=== PATIENT | female | born 1940 | race Caucasian/White ===

== ENCOUNTER 2016-10-07 06:03 | Day surgery (SDC) | payer OTHER ==
[~2016-10-07] VITALS: Ht 157.5 cm; Wt 61.0 kg
[2016-10-07 06:47] VITALS: BP 170/95; PULSE 84; RESP 20; TEMP 97.6; O2SAT 98
[2016-10-07] MEDS ORDERED: ATOR40TA16 PO (06:52)
[2016-10-07] MEDS ORDERED: CROM4SOL2 EACH EYE (06:52)
[2016-10-07] MEDS ORDERED: ALPR0.25 PO (06:52)
[2016-10-07] MEDS ORDERED: VITA100052 PO (06:52)
[2016-10-07] MEDS ORDERED: VERA240T16 PO (06:52)
[2016-10-07] MEDS ORDERED: TRAN1TAB PO (06:52)
[2016-10-07] MEDS ORDERED: VANCOMYCIN 1000 MG/NS 250 ML - implanted port/tunneled catheter IV SCH ×2 (07:15)
[2016-10-07] MEDS ORDERED: ceFAZolin 2 GM PREMIX 50 ML - implanted port/tunneled catheter insertion IV SCH (07:15)
[2016-10-07] MEDS ORDERED: SODIUM CHLORIDE 0.9% 1000 ML IV SCH (07:15)
[2016-10-07] MEDS ORDERED: POVIDONE IODINE 5% (ANTISEPSIS KIT) 4 APPLICATIONS EACH NARE SCH (07:15)
[2016-10-07] MEDS ORDERED: CHLORHEXIDINE GLUCONATE 2 % 1 PACK (2 CLOTHS) TOPICAL SCH (07:15)
[2016-10-07] MEDS ORDERED: fentaNYL CITRATE 250 MCG/5 ML AMP ONE (08:03)
[2016-10-07] MEDS ORDERED: MIDAZOLAM HCL 5 MG/5 ML VIAL ONE (08:03)
[2016-10-07] MEDS ORDERED: LIDOCAINE 1%/EPINEPHrine 1:100,000 SOLN 20 ML VIAL ONE (08:23)
[2016-10-07 09:20] VITALS: BP 156/82; PULSE 95; RESP 20; TEMP 97.3; O2SAT 95
--- NOTE | 2016-10-07 09:21 | PD.RAD ---
Post Procedure Progress Note Pre Procedure Diagnosis: (1) Pancreatic cancer Post Procedure Diagnosis: (1) Pancreatic cancer Procedure Date: Oct 07, 2016 Supervising Radiologist: Lj Miller Proceduralist/Assist: Viridiana Jean-Baptiste, RT(R)(), Es Quiroga RT(R)() Anesthesia: Local, Conscious Sedation Plan of Activity Patient to Unit: ROPU Patient Condition: Good See PACS Report for procedural detail/treatment Central Venous Access Device Procedure 1 Right Internal Jugular Infusaport Placement single lumen [place]: 8 Lj Miller MD Oct 07, 2016 09:20
[2016-10-07] MEDS ORDERED: ONDANSETRON HCL 4 MG/2 ML VIAL ONE (09:27)
[2016-10-07 09:35] VITALS: BP 145/83; PULSE 77; RESP 20; O2SAT 94
[2016-10-07] MEDS ORDERED: ONDANSETRON HCL 4 MG/2 ML VIAL IV PUSH ONE (09:45)
[2016-10-07 10:05] VITALS: BP 126/69; PULSE 65; RESP 20; O2SAT 94
[2016-10-07 10:30] VITALS: BP_SYST 111; BP_SYST 126; BP_DIAS 66; BP_DIAS 69; PULSE 63; PULSE 65; RESP 20; O2SAT 94
--- NOTE | 2016-10-07 12:49 | RADRPT ---
EXAM DATE/TIME: 10/07/2016 08:07 [facility] COMPARISON: No previous studies available for comparison. 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 MEDICAL HISTORY : Anemia Arthritis Cataracts Colitis HTN Osteopenia Metastatic pancreatic head adenocarcinoma in 2016 SURGICAL HISTORY : ERCP with biliary stent placement EUS guided liver biopsy Cholecystectomy Colonoscopy Tonsillectomy ENCOUNTER: Initial ACUITY: 1 month PAIN SCORE: 0/10 FLUORO TIME: 0.2 minutes SEDATION TIME: 30 minutes ACCESS: Right internal jugular vein SEDATION: 1.) 3 mg midazolam (Versed) IV 2.) 250 mcg fentanyl (Sublimaze) IV Prophylactic antibiotics were administered with appropriate pre-procedure timing. Vancomycin within 2 hours of procedure, Ancef (or alternative) within 1 hour of procedure. DEVICE: 1. 8 [place] single lumen Bard Power Port PROCEDURE : 1. Continuous pulse oximetry and EKG monitoring. 2. Intravenous conscious sedation. 3. Ultrasound guidance for venous access. 4. Fluoroscopic guided implantable central venous port placement. The patient was placed supine. The neck was prepped in sterile fashion. Full sterile technique was u sed, including cap, mask, sterile gloves and gown, and a large sterile sheet. Hand hygiene and 2% ch lorhexidine Betadine was utilized per protocol for cutaneous antisepsis with appropriate dry time for site. The skin and subcutaneous tissues were infiltrated with local anesthetic solution. Under direct ultrasound guidance, central venous access was accomplished in the targeted vessel. The ultrasound images depicting access guidance were stored and saved to PACS for permanent record. A s ubcutaneous pocket was created using blunt dissection. The port was introduced to the pocket. The c atheter tubing was fed through a subcutaneous tunnel to the venotomy site. The catheter tubing was c ut to a suitable length and then was introduced through a valved Peel-Away sheath and positioned with catheter tubing tip at the cavo-atrial junction level. The pocket incision was closed with subcutic ular Vicryl suture. Steri-Strips were applied. The port was flushed and locked with heparin solutio n per protocol. Sterile dressing was applied to the site. The patient tolerated the procedure well. Conscious sedation was performed with the prescribed dosages and duration as above. The patient kendall ated the procedure well and there were no complications. EKG and oximetry remained stable throughout the procedure. The patient was sent to post anesthesia recovery in stable condition. CONCLUSION: Uncomplicated ultrasound and fluoroscopic guided implanted central venous port catheter placement as described in detail above. An 8 [place] Power port was placed. Lj Miller MD on October 07, 2016 at 12:47 Board Certified Radiologist. This report was verified electronically.
[2016-10-08] MEDS ORDERED: HYDR-3533 PO (12:30)
== END 2016-10-07 12:20 | disposition home or self-care (01) ==
LOC: HROP 06:03 → HRIP 06:04 → HROP 12:20
PROVIDERS: ATTEND Internal Medicine Hematology & Oncology
DX: C25.9 Malignant neoplasm of pancreas, unspecified (principal); C78.7 Secondary malignant neoplasm of liver and intrahepatic bile duct; M85.80 Other specified disorders of bone density and structure, unspecified site; I10 Essential (primary) hypertension; D64.9 Anemia, unspecified
CPT/HCPCS: 36561; 76937; 77001; 99152; 99153; J0690; J1642; J2250; J2405; J3010; J3370; J7030; J7050; C1788

== ENCOUNTER 2016-10-08 08:47 | Emergency (ER) | payer OTHER ==
[~2016-10-08] VITALS: Ht 157.5 cm; Wt 61.5 kg
[~2016-10-08 08:47] MED LIST: ALPR0.25 PO; ATOR40TA16 PO; CROM4SOL2 EACH EYE; TRAN1TAB PO; VERA240T16 PO; VITA100052 PO
[2016-10-08 08:48] VITALS: BP 190/82; PULSE 87; RESP 16; TEMP 97.3; O2SAT 96
[2016-10-08] MEDS ORDERED: SODIUM CHLORIDE 0.9% FLUSH 5 ML FLUSH IVF PRN (09:15)
[2016-10-08] MEDS ORDERED: MORPHINE SULFATE 4 MG/ML INJ IV PUSH ONE ×2 (09:15→12:30)
[2016-10-08] MEDS ORDERED: ONDANSETRON HCL 4 MG/2 ML VIAL IVP ONE (09:15)
[2016-10-08] MEDS ORDERED: SODIUM CHLOR 0.9% 1000 ML INJ 1,000 ML IV SCH (09:15)
--- NOTE | 2016-10-08 09:15 | PD ---
HPI Chief Complaint: Abdominal Pain Time Seen by Provider: 09:14 Travel History International Travel<30 days: No Contact w/Intl Traveler<30days: No Traveled to known affect area: No History of Present Illness HPI 76-year-old female came to the emergency room with history of right upper quadrant abdominal pain. Patient has history of pancreatic cancer and has a stent placed in the pancreatic duct 2 months ago. She is going through chemotherapy currently. Yesterday she had a MediPort put in. The pain has been there for 2 days now. No history of fever or chills. She has been nauseous but no history of vomiting. Patient was hypertensive upon arrival but also appears quite uncomfortable due to the pain. [facility] Past Medical History Narrative Medical List of her past medical history reviewed from the nursing note. Cancer: Yes (PANCREATIC) Cardiovascular Problems: No Chemotherapy: Yes (STARTS FRIDAY) Diabetes: No Endocrine: No Genitourinary: No Hepatitis: No Hiatal Hernia: No Immune Disorder: No Musculoskeletal: Yes (RIGHT HAND ARTHRITIS) Neurologic: No Psychiatric: No Reproductive: No Respiratory: No Immunizations Current: No Thyroid Disease: No ?: Not Past Surgical History Abdominal Surgery: Yes (CHOLECYSTECTOMY) AICD: No Cardiac Surgery: No Ear Surgery: No Endocrine Surgery: No Eye Surgery: Yes (CATARACTS BILATERAL 2013) Genitourinary Surgery: No Gynecologic Surgery: No Joint Replacement: No Oral Surgery: No Pacemaker: No Thoracic Surgery: No Social History Tobacco Use: No Substance Use: No Allergies-Medications (Allergen,Severity, Reaction): Coded Allergies: No Known Allergies (Unverified , 10/08/16) Comments No known drug allergies. Reported Meds & Prescriptions Reported Meds & Active Scripts Active Lortab (Hydrocodone-Acetaminophen) 5-325 Mg Tab 1 Tab PO Q6H PRN Reported Cromolyn Opth Drops 4% Soln 1 Drop EACH EYE Q6H Vitamin D High Potency (Cholecalciferol) 1,000 Unit Cap 1,000 Units PO DAILY Alprazolam 0.25 Mg Tab 0.25 Mg PO Q6H PRN Atorvastatin (Atorvastatin Calcium) 40 Mg Tab 40 Mg PO HS Trandolapril 1 Mg Tab 1 Tab PO DAILY Verapamil SR (Verapamil HCl) 240 Mg Tab 240 Mg PO DAILY Narrative Medication List of her home medications reviewed from the nursing note. Review of Systems Except as stated in HPI: all other systems reviewed are Neg Physical Exam Narrative GENERAL: Awake, alert, anxious, moderate distress SKIN: Warm and dry. HEAD: Atraumatic. Normocephalic. EYES: Pupils equal and round. No scleral icterus. No injection or drainage. ENT: No nasal bleeding or discharge. Mucous membranes pink and moist. NECK: Trachea midline. No JVD. CARDIOVASCULAR: Regular rate and rhythm. No murmur appreciated. RESPIRATORY: No accessory muscle use. Clear to auscultation. Breath sounds equal bilaterally. GASTROINTESTINAL: Abdomen soft, tender in the epigastric right upper quadrant region, nondistended. Hepatic and splenic margins not palpable. MUSCULOSKELETAL: No obvious deformities. No clubbing. No cyanosis. No edema. NEUROLOGICAL: Awake and alert. No obvious cranial nerve deficits. Motor grossly within normal limits. Normal speech. PSYCHIATRIC: Appropriate mood and affect; insight and judgment normal. Data Data Last Documented VS Vital Signs Date Time Temp Pulse Resp B/P Pulse Ox O2 Delivery O2 Flow Rate FiO2 10/08/16 13:08 68 18 165/76 98 Room Air 10/08/16 08:48 97.3 Orders Complete Blood Count With Diff (10/08/16 09:15) Comprehensive Metabolic Panel (10/08/16 09:15) Lipase (10/08/16 09:15) Prothrombin Time / Inr (Pt) (10/08/16 09:15) Act Partial Throm Time (Ptt) (10/08/16 09:15) Urinalysis - C+S If Indicated (10/08/16 09:15) Ct Abd/Pel W Iv Contrast(Rout) (10/08/16 09:15) Iv Access Insert/Monitor (10/08/16 09:15) Ecg Monitoring (10/08/16 09:15) Oximetry (10/08/16 09:15) Morphine Inj (Morphine Inj) (10/08/16 09:15) Ondansetron Inj (Zofran Inj) (10/08/16 09:15) Sodium Chlor 0.9% 1000 Ml Inj (Ns 1000 M (10/08/16 09:15) Sodium Chloride 0.9% Flush (Ns Flush) (10/08/16 09:15) Direct Bilirubin (10/08/16 09:15) Iohexol 350 Inj (Omnipaque 350 Inj) (10/08/16 10:22) Morphine Inj (Morphine Inj) (10/08/16 12:30) Labs Laboratory Tests Test 10/08/16 10/08/16 09:20 11:00 White Blood Count 6.7 TH/MM3 Red Blood Count 4.27 MIL/MM3 Hemoglobin 13.0 GM/DL Hematocrit 37.5 % Mean Corpuscular Volume 88.0 FL Mean Corpuscular Hemoglobin 30.4 PG Mean Corpuscular Hemoglobin 34.5 % Concent Red Cell Distribution Width 14.7 % Platelet Count 382 TH/MM3 Mean Platelet Volume 7.7 FL Neutrophils (%) (Auto) 76.8 % Lymphocytes (%) (Auto) 16.3 % Monocytes (%) (Auto) 5.1 % Eosinophils (%) (Auto) 1.4 % Basophils (%) (Auto) 0.4 % Neutrophils # (Auto) 5.1 TH/MM3 Lymphocytes # (Auto) 1.1 TH/MM3 Monocytes # (Auto) 0.3 TH/MM3 Eosinophils # (Auto) 0.1 TH/MM3 Basophils # (Auto) 0.0 TH/MM3 CBC Comment DIFF FINAL Differential Comment Prothrombin Time 10.2 SEC Prothromb Time International 0.9 RATIO Ratio Activated Partial 24.3 SEC Thromboplast Time Sodium Level 139 MEQ/L Potassium Level 3.8 MEQ/L Chloride Level 103 MEQ/L Carbon Dioxide Level 27.7 MEQ/L Anion Gap 8 MEQ/L Blood Urea Nitrogen 6 MG/DL Creatinine 0.58 MG/DL Estimat Glomerular Filtration 102 ML/MIN Rate Random Glucose 114 MG/DL Calcium Level 8.8 MG/DL Total Bilirubin 0.8 MG/DL Direct Bilirubin 0.2 MG/DL Aspartate Amino Transf 18 U/L (AST/SGOT) Alanine Aminotransferase 16 U/L (ALT/SGPT) Alkaline Phosphatase 160 U/L Total Protein 7.9 GM/DL Albumin 3.4 GM/DL Lipase 206 U/L Urine Color STRAW Urine Turbidity CLEAR Urine pH 7.5 Urine Specific [place] 1.009 Urine Protein NEG mg/dL Urine Glucose (UA) NEG mg/dL Urine Ketones NEG mg/dL Urine Occult Blood NEG Urine Nitrite NEG Urine Bilirubin NEG Urine Urobilinogen LESS THAN 2.0 MG/DL Urine Leukocyte Esterase NEG Urine RBC LESS THAN 1 /hpf Urine WBC LESS THAN 1 /hpf Microscopic Urinalysis Comment CULT NOT INDICATED MDM Medical Decision Making Medical Screen Exam Complete: Yes Emergency Medical Condition: Yes Medical Record Reviewed: Yes Differential Diagnosis Worsening of pancreatic cancer, ductal obstruction, acute cholecystitis, acute pancreatitis Narrative Course 10:24 AM blood test results of back and within normal limit. Awaiting for the CAT scan to be done and resulted. Patient has been given IV fluid bolus and pain medication. 11:18 AM CAT scan shows multiple metastases in the liver. I put a call out for patient's oncologist and GI specialist. Awaiting to hear back from them. 12:27 PM I have not heard back yet from either of her physicians Dr. Spangler or Dr. Guan. Looking at her reports I do not see any reason for hospitalization or surgery today. I discussed this with the patient and her and they' re comfortable going home. They said they will stop by a Dr. Spangler's office on the way home. I'll discharge her home on prescription for pain medication. I've given her another dose of morphine before discharge. 12:[address] Spangler called back and after listening to the entire case, sgreed with the plan for DC home. He said his nurse will call the patient to give an appointment with him as an outpatient for tomorrow. This has been conveyed to the patient and her . They are very happy with that plan. Procedures EKG Prior to Arrival: No Physician Communication Physician Communication Dr. Spangler Diagnosis Primary Impression: Pancreatic cancer Qualified Code: C25.9 - Malignant neoplasm of pancreas, unspecified location of malignancy Additional Impressions: Liver metastases Abdominal pain Qualified Code: R10.11 - Right upper quadrant abdominal pain Referrals: Primary Care Physician Additional Instructions: Please follow-up with your primary care as well as the oncologist soon. Return to the ER if the condition worsens or any other new concerns. Otherwise take the medication as per the prescription direction. Med/Other Pt SpecificInfo: Prescription(s) given Scripts Hydrocodone-Acetaminophen (Lortab)5-325 Mg Tab1 Tab PO Q6H PRN (PAIN) #20 TAB Ref 0 Prov:Anahi Gudino MD 10/08/16 Disposition: 01 DISCHARGE HOME Condition: Stable Anahi Gudino MD Oct 08, 2016 09:14
[2016-10-08 09:21] VITALS: BP 165/91; PULSE 71; RESP 18; O2SAT 96
[2016-10-08 09:31] LABS: AUTOMATED NEUTROPHIL # 5.1 TH/MM3 (1.8-7.7); BASOPHIL % 0.4 % (0.0-2.0); EOSINOPHIL # 0.1 TH/MM3 (0-0.4); EOSINOPHIL % 1.4 % (0.0-4.0); HEMATOCRIT 37.5 % (35.0-46.0); HEMO FLAGS DIFF FINAL; LYMPH % 16.3 % (9.0-44.0); LYMPHOCYTE # 1.1 TH/MM3 (1.0-4.8); MEAN CORPUSCULAR HEMOGLOBIN 30.4 PG (27.0-34.0); MEAN CORPUSCULAR HGB CONC 34.5 % (32.0-36.0); MONO % 5.1 % (0.0-8.0); NEUT % 76.8 % (16.0-70.0); PLATELET COUNT 382 TH/MM3 (150-450); RED BLOOD COUNT 4.27 MIL/MM3 (4.00-5.30); RED CELL DISTRIBUTION WIDTH 14.7 % (11.6-17.2); WHITE BLOOD COUNT 6.7 TH/MM3 (4.0-11.0)
[2016-10-08 09:45] LABS: ANION GAP 8 MEQ/L (5-15); AST (GOT) 18 U/L (15-37); BICARBONATE 27.7 MEQ/L (21.0-32.0); BLOOD UREA NITROGEN 6 MG/DL (7-18); CHLORIDE 103 MEQ/L (98-107); GLOMERULAR FILTRATION RATE 102 ML/MIN (>89); POTASSIUM 3.8 MEQ/L (3.5-5.1); SODIUM (NA) 139 MEQ/L (136-145)
[2016-10-08 09:48] LABS: ALKALINE PHOSPHATASE 160 U/L (45-117); ALT (GPT) 16 U/L (10-53); APTT (PATIENT) 24.3 SEC (24.3-30.1); INTERNATIONAL NORMALIZED RATIO 0.9 RATIO; PROTHROMBIN TIME - PATIENT 10.2 SEC (9.8-11.6); TOTAL BILIRUBIN ADULT 0.8 MG/DL (0.2-1.0)
[2016-10-08 10:00] VITALS: BP 173/75; PULSE 74; RESP 20; O2SAT 97
[2016-10-08] MEDS ORDERED: IOHEXOL 350 MG/ML 10 ML VIAL (for RAD DIAG) IV ONE (10:22)
--- NOTE | 2016-10-08 10:58 | RADRPT ---
EXAM DATE/TIME: 10/08/2016 10:15 [facility] COMPARISON: No previous studies available for comparison. INDICATIONS: Right upper quadrant pain. IV CONTRAST: 92 cc Omnipaque 350 (iohexol) IV ORAL CONTRAST: No oral contrast ingested. RADIATION DOSE: 7.3 CTDIvol (mGy) MEDICAL HISTORY: Hypertension. Carcinoma, pancreas. SURGICAL HISTORY: None. ENCOUNTER: Initial ACUITY: 2 days PAIN SCALE: 5/10 LOCATION: Right upper quadrant TECHNIQUE: Volumetric scanning of the abdomen and pelvis was performed. Using automated exposure control and ad justment of the mA and/or kV according to patient size, radiation dose was kept as low as reasonably achievable to obtain optimal diagnostic quality images. FINDINGS: There are multiple masses scattered throughout the liver parenchyma consistent with metastatic diseas e until proven otherwise. The largest mass is located within the right lobe inferiorly and measures 2.6 cm. Pneumobilia is noted. A metallic stent is noted within the distal common bile duct. The pancreas is unremarkabl e. The adrenal glands are normal bilaterally. The spleen is normal. The kidneys enhance briskly and demons trate no evidence of focal mass or hydronephrosis. The abdominal aorta is calcified but is not aneurysmally d ilated. The inferior vena cava is normal. Uncomplicated sigmoid diverticulosis is noted. There is no acute dive rticulitis. The uterus is normal. The urinary bladder is unremarkable. No ascites is noted. Degenerative changes a re noted throughout the lumbar and lower thoracic spine. Scattered fibrotic scarring is noted within the visu alized lung bases. CONCLUSION: 1.. Innumerable liver masses suggestive of metastatic disease until proven otherwise. 2. Uncomplicated sigmoid diverticulosis. 3. Pneumobilia with metallic stent identified within the distal common bile duct. 4. Fibrotic scarring within the lung bases. 5. Degenerative changes throughout the thoracolumbar spine. Cosme Engel MD on October 08, 2016 at 10:36 Board Certified Radiologist. This report was verified electronically.
[2016-10-08 11:26] LABS: BLOOD, URINE NEG (NEG); GLUCOSE,URINE NEG (NEG); KETONE, URINE NEG (NEG); NITRITE,URINE NEG (NEG); PH, URINE 7.5 (5.0-8.5)
[2016-10-08 11:27] LABS: URINE COLOR STRAW (YELLW/STRAW)
[2016-10-08 11:28] LABS: COMMENT (UR) CULT NOT INDICATED; CULTURE IF INDICATED CULT NOT INDICATED
[2016-10-08 11:56] VITALS: BP 170/74; PULSE 80; RESP 18; O2SAT 95
[2016-10-08] MEDS ORDERED: HYDR-3533 PO (12:30)
[2016-10-08 13:08] VITALS: BP 165/76; PULSE 68; RESP 18; O2SAT 98
== END 2016-10-08 14:01 | disposition home or self-care (01) ==
LOC: NEPC 08:47
DX: C25.9 Malignant neoplasm of pancreas, unspecified (principal); C78.7 Secondary malignant neoplasm of liver and intrahepatic bile duct
CPT/HCPCS: 74177; 80053; 81001; 82248; 83690; 85025; 85610; 85730; 96374; 96375; 96376; 99284; J2270; J2405; J7030; Q9967

== ENCOUNTER 2017-11-02 19:49 | Inpatient (IN) | payer OTHER, MEDICARE ==
[2017-11-02] VITALS (7 sets, daily range): BP systolic 118–148; BP diastolic 56–92; PULSE 103–160; RESP 16–20; TEMP 100.4; O2SAT 96–99
[~2017-11-02] VITALS: Ht 157.5 cm; Wt 63.1 kg
[~2017-11-02 19:49] MED LIST changes: +HYDR-3533 PO; +VERA1TAB18 PO; -VERA240T16 PO
[2017-11-02] MEDS ORDERED: SODIUM CHLORIDE 0.9% FLUSH 10 ML FLUSH IVF PRN (20:15)
[2017-11-02] MEDS ORDERED: DILTIAZEM HCL 25 MG/5 ML VIAL IV PUSH ONE (20:15)
[2017-11-02] MEDS ORDERED: DILTIAZEM INJ 125 MG in SODIUM CHLORIDE 0.9% INJ 100 ML IV PRN (20:15)
[2017-11-02] MEDS ORDERED: SODIUM CHLOR 0.9% 1000 ML INJ 1,000 ML IV SCH ×2 (20:15→21:30)
[2017-11-02] MEDS ORDERED: ONDANSETRON HCL 4 MG/2 ML VIAL IVP ONE (20:15)
--- NOTE | 2017-11-02 20:27 | PD ---
HPI Chief Complaint: Cold / Flu Symptoms Time Seen by Provider: 20:15 Travel History International Travel<30 days: No Contact w/Intl Traveler<30days: No Traveled to known affect area: No History of Present Illness HPI The patient is a 77-year-old female who started having nausea and vomiting without diarrhea at around 11 AM this morning. She has not vomited any blood. She has not had any fluids or food since 11 AM. She comes in the cause of nausea and vomiting. She does feel dehydrated. She does have some slight midline epigastric discomfort. She denies any chest pain. She denies any shortness of breath. The epigastric discomfort as a 4/10 and dull pain. The patient has pancreatic cancer not currently on treatment. Her oncologist is Dr. Spangler here and she also uses [facility]. She was due to go for a biopsy tomorrow. PFSH Past Medical History Cancer: Yes (PANCREATIC) Cardiovascular Problems: No Chemotherapy: Yes (STARTS FRIDAY) Diabetes: No Endocrine: No Gastrointestinal Disorders: Yes (PANCREATIC STENT JULY 2016) Genitourinary: No Hepatitis: No Hiatal Hernia: No Hypertension: Yes Immune Disorder: No Musculoskeletal: Yes (RIGHT HAND ARTHRITIS) Neurologic: No Psychiatric: No Reproductive: No Respiratory: No Immunizations Current: Yes Thyroid Disease: No Past Surgical History Abdominal Surgery: Yes (CHOLECYSTECTOMY) AICD: No Cardiac Surgery: No Ear Surgery: No Endocrine Surgery: No Eye Surgery: Yes (CATARACTS BILATERAL 2013) Genitourinary Surgery: Yes (stent) Gynecologic Surgery: No Joint Replacement: No Oral Surgery: No Pacemaker: No Thoracic Surgery: No Tonsillectomy: Yes Other Surgery: Yes (port placement) Social History Alcohol Use: No Tobacco Use: No Substance Use: No Allergies-Medications (Allergen,Severity, Reaction): Coded Allergies: No Known Allergies (Unverified Adverse Reaction, Unknown, 11/02/17) Reported Meds & Prescriptions Reported Meds & Active Scripts Active Reported [trandolapril] 1 Tab PO DAILY Cromolyn Opth Drops 4% Soln 1 Drop EACH EYE Q6H Alprazolam 0.25 Mg Tab 0.25 Mg PO Q6H PRN Verapamil SR (Verapamil HCl) 240 Mg Tab 240 Mg PO DAILY Review of Systems Except as stated in HPI: all other systems reviewed are Neg Physical Exam Narrative GENERAL: The patient is alert, moderately dehydrated appearing, oriented 3 and slight apparent distress with her epigastric midline discomfort. Her temperature is 100.4 with pulse of 160 and blood pressure 148/92. SKIN: Focused skin assessment warm/dry. HEAD: Atraumatic. Normocephalic. EYES: Pupils equal and round. No scleral icterus. No injection or drainage. ENT: No nasal bleeding or discharge. Mucous membranes pink and moist. NECK: Trachea midline. No JVD. CARDIOVASCULAR: Sinus tachycardia rhythm. No murmur appreciated. RESPIRATORY: No accessory muscle use. Clear to auscultation. Breath sounds equal bilaterally. GASTROINTESTINAL: Abdomen soft, with slight tenderness in the midline epigastrium to direct palpation, nondistended. Hepatic and splenic margins not palpable. No guarding or rebound is present. MUSCULOSKELETAL: No obvious deformities. No clubbing. No cyanosis. No edema. NEUROLOGICAL: Awake and alert. No obvious cranial nerve deficits. Motor grossly within normal limits. Normal speech. PSYCHIATRIC: Appropriate mood and affect; insight and judgment normal. Data Data Last Documented VS Vital Signs Date Time Temp Pulse Resp B/P (MAP) Pulse Ox O2 Delivery O2 Flow Rate FiO2 11/02/17 22:27 100.4 11/02/17 21:47 117 16 99 Nasal Cannula 1.00 Orders Orders Electrocardiogram (11/02/17 20:15) Ckmb (Isoenzyme) Profile (11/02/17 20:15) Complete Blood Count With Diff (11/02/17 20:15) Comprehensive Metabolic Panel (11/02/17 20:15) Magnesium (Mg) (11/02/17 20:15) Prothrombin Time / Inr (Pt) (11/02/17 20:15) Act Partial Throm Time (Ptt) (11/02/17 20:15) Troponin I (11/02/17 20:15) Chest, Single Ap (11/02/17 20:15) Ecg Monitoring (11/02/17 20:15) Iv Access Insert/Monitor (11/02/17 20:15) Oximetry (11/02/17 20:15) Oxygen Administration (11/02/17 20:15) Sodium Chloride 0.9% Flush (Ns Flush) (11/02/17 20:15) Lipase (11/02/17 20:15) Ondansetron Inj (Zofran Inj) (11/02/17 20:15) Sodium Chlor 0.9% 1000 Ml Inj (Ns 1000 M (11/02/17 20:15) Vital Signs (Adult) Q15MX4,Q4H (11/02/17 20:15) Circuits Engineer / Telemetry MALCOM.Q8H (11/02/17 20:15) Cardiac Rhythm MALCOM.Q8H (11/02/17 20:15) Notify Dr: Other (11/02/17 20:15) Pantoprazole Inj (Protonix Inj) (11/02/17 20:30) Famotidine Inj (Pepcid Inj) (11/02/17 20:30) Lipase (11/02/17 21:30) Ct Abd/Pel W Iv Contrast(Rout) (11/02/17 21:30) Sodium Chlor 0.9% 1000 Ml Inj (Ns 1000 M (11/02/17 21:30) Labs Laboratory Tests Test 11/02/17 20:14 11/02/17 22:22 White Blood Count 24.5 TH/MM3 Red Blood Count 4.02 MIL/MM3 Hemoglobin 11.6 GM/DL Hematocrit 34.0 % Mean Corpuscular Volume 84.5 FL Mean Corpuscular Hemoglobin 28.8 PG Mean Corpuscular Hemoglobin Concent 34.1 % Red Cell Distribution Width 17.2 % Platelet Count 526 TH/MM3 Mean Platelet Volume 6.7 FL Neutrophils (%) (Auto) 95.2 % Lymphocytes (%) (Auto) 1.1 % Monocytes (%) (Auto) 1.2 % Eosinophils (%) (Auto) 0.0 % Basophils (%) (Auto) 2.5 % Neutrophils # (Auto) 23.3 TH/MM3 Lymphocytes # (Auto) 0.3 TH/MM3 Monocytes # (Auto) 0.3 TH/MM3 Eosinophils # (Auto) 0.0 TH/MM3 Basophils # (Auto) 0.6 TH/MM3 CBC Comment AUTO DIFF Differential Total Cells Counted 100 Neutrophils % (Manual) 82 % Band Neutrophils % 17 % Monocytes % 1 % Neutrophils # (Manual) 24.3 TH/MM3 Differential Comment FINAL DIFF MANUAL Platelet Estimate HIGH Platelet Morphology Comment CLUMPED Red Cell Morphology Comment NORMAL Prothrombin Time 13.3 SEC Prothromb Time International Ratio 1.3 RATIO Activated Partial Thromboplast Time 25.7 SEC Blood Urea Nitrogen 18 MG/DL Creatinine 0.95 MG/DL Random Glucose 132 MG/DL Total Protein 7.8 GM/DL Albumin 2.7 GM/DL Calcium Level 8.6 MG/DL Magnesium Level 1.8 MG/DL Alkaline Phosphatase 1297 U/L Aspartate Amino Transf (AST/SGOT) 311 U/L Alanine Aminotransferase (ALT/SGPT) 139 U/L Total Bilirubin 5.0 MG/DL Sodium Level 129 MEQ/L Potassium Level 3.2 MEQ/L Chloride Level 95 MEQ/L Carbon Dioxide Level 21.3 MEQ/L Anion Gap 13 MEQ/L Estimat Glomerular Filtration Rate 57 ML/MIN Total Creatine Kinase 46 U/L Troponin I LESS THAN 0.02 NG/ML Lipase 131 U/L MDM Medical Decision Making Medical Screen Exam Complete: Yes Emergency Medical Condition: Yes Medical Record Reviewed: Yes Interpretation(s) The CT abdomen/pelvis shows worsening metastatic disease to the liver and metastatic adenopathy in the upper abdomen not present on exam done one year ago. The chest x-ray shows no acute cardiopulmonary disease. The EKG shows sinus tachycardia with a rate of [address] elevation or depression. The CBC shows a white count of 24,500 with 95% neutrophils. Differential Diagnosis PAT, sinus tachycardia, atrial fibrillation, dehydration, gastritis, electrolyte disorder, acute coronary syndrome, pancreatitis, small bowel obstruction Narrative Course The patient has sinus tachycardia, most likely from dehydration. She was given fluids and the heart rate came down to about 110. There is no evidence for small bowel obstruction and she does not have PAT or atrial fibrillation. Mark Palmer MD Nov 02, 2017 20:27
[2017-11-02 20:29] LABS: AUTOMATED NEUTROPHIL # 23.3 TH/MM3 (1.8-7.7); BASOPHIL # 0.6 TH/MM3 (0-0.2); BASOPHIL % 2.5 % (0.0-2.0); HEMOGLOBIN 11.6 GM/DL (11.6-15.3); LYMPH % 1.1 % (9.0-44.0); LYMPHOCYTE # 0.3 TH/MM3 (1.0-4.8); MEAN CELL VOLUME 84.5 FL (80.0-100.0); MEAN CORPUSCULAR HEMOGLOBIN 28.8 PG (27.0-34.0); MEAN CORPUSCULAR HGB CONC 34.1 % (32.0-36.0); MEAN PLATELET VOLUME 6.7 FL (7.0-11.0); MONO % 1.2 % (0.0-8.0); MONOCYTE # 0.3 TH/MM3 (0-0.9); NEUT % 95.2 % (16.0-70.0); PLATELET COUNT 526 TH/MM3 (150-450); RED BLOOD COUNT 4.02 MIL/MM3 (4.00-5.30); RED CELL DISTRIBUTION WIDTH 17.2 % (11.6-17.2); WHITE BLOOD COUNT 24.5 TH/MM3 (4.0-11.0)
[2017-11-02] MEDS ORDERED: PANTOPRAZOLE SODIUM 40 MG VIAL IVP ONE (20:30)
[2017-11-02] MEDS ORDERED: FAMOTIDINE 20 MG/2 ML VIAL IV PUSH ONE (20:30)
[2017-11-02 20:43] LABS: CHLORIDE 95 MEQ/L (98-107); SODIUM (NA) 129 MEQ/L (136-145)
[2017-11-02 20:46] LABS: CALCIUM 8.6 MG/DL (8.5-10.1)
[2017-11-02 20:47] LABS: ALBUMIN 2.7 GM/DL (3.4-5.0); BICARBONATE 21.3 MEQ/L (21.0-32.0); BLOOD UREA NITROGEN 18 MG/DL (7-18); GLUCOSE,RANDOM 132 MG/DL (74-106); INTERNATIONAL NORMALIZED RATIO 1.3 RATIO; MAGNESIUM 1.8 MG/DL (1.5-2.5); PROTHROMBIN TIME - PATIENT 13.3 SEC (9.8-11.6)
[2017-11-02 20:50] LABS: ALT (GPT) 139 U/L (10-53); AST (GOT) 311 U/L (15-37); CREATININE 0.95 MG/DL (0.50-1.00); GLOMERULAR FILTRATION RATE 57 ML/MIN (>89)
[2017-11-02 20:51] LABS: TOTAL PROTEIN 7.8 GM/DL (6.4-8.2)
[2017-11-02 20:55] LABS: TROPONIN I LESS THAN 0.02 NG/ML (0.02-0.05)
--- NOTE | 2017-11-02 20:59 | RADRPT ---
EXAM DATE/TIME: 11/02/2017 20:35 [facility] COMPARISON: No previous studies available for comparison. INDICATIONS : Chest pain. MEDICAL HISTORY : Hypertension. SURGICAL HISTORY : None. ENCOUNTER: Initial ACUITY: 1 day PAIN SCORE: 0/10 LOCATION: Bilateral chest FINDINGS: The lungs are clear without infiltrate, nodule, or mass. There is no appreciable pleural effusion fo r technique. Heart and mediastinum are unremarkable. CONCLUSION: No acute cardiopulmonary disease. Marcos Aquino MD on November 02, 2017 at 20:56 Board Certified Radiologist. This report was verified electronically.
[2017-11-02 21:04] LABS: ALKALINE PHOSPHATASE 1297 U/L (45-117)
[2017-11-02 21:09] LABS: BANDS 17 % (0-6); MONOCYTES 1 % (0-8); NEUTROPHIL # MANUAL DIFF 24.3 TH/MM3 (1.8-7.7); POLYS (SEG NEUTROPHILS) 82 % (16-70)
[2017-11-02] MEDS ORDERED: TRANDOLAPRIL PO (21:52)
[2017-11-02] MEDS ORDERED: IOHEXOL 350 MG/ML 10 ML VIAL (for RAD DIAG) IVCONTRAST ONE (21:55)
--- NOTE | 2017-11-02 22:36 | RADRPT ---
EXAM DATE/TIME: 11/02/2017 21:55 [facility] COMPARISON: CT ABDOMEN & PELVIS W CONTRAST, October 08, 2016, 10:15. INDICATIONS : Epigastric pain. Nausea, vomiting and diarrhea. History of pancreatic cancer. IV CONTRAST: 100 cc Omnipaque 350 (iohexol) IV ORAL CONTRAST: No oral contrast ingested. RADIATION DOSE: 7.12 CTDIvol (mGy) MEDICAL HISTORY : Carcinoma, pancreas. SURGICAL HISTORY : Cholecystectomy. Pancreatic stent. ENCOUNTER: Initial ACUITY: 1 day PAIN SCALE: 8/10 LOCATION: Bilateral upper quadrant TECHNIQUE: Volumetric scanning of the abdomen and pelvis was performed. Using automated exposure control and adjustment of the mA and/or kV according to patient size, radiation dose was kept as low as reasonably achievable to obtain optimal diagnostic quality images. DICOM format image data is av ailable electronically for review and comparison. FINDINGS: CT Abdomen: Extensive widespread metastatic disease to the liver is identified worse since the prior examination the largest one measures 8.5 cm, it measured 2.6 cm previously within the right hepatic l obe. There is an approximate 1 cm lymph node anterior to the right hepatic lobe not present previousl y with necrotic lymph nodes in the audelia hepatis not present previously the largest one measures 2.7 cm in size. There is also an approximate 1.4 cm lymph node at the level of the gastroesophageal junct ion metastatic in nature not present previously. The common hepatic duct measures 1 cm and appears di lated worse since the prior examination and there is a stent in the distal common bile duct. The panc reas appears atrophic and clear pancreatic mass is not visualized. There are shotty subcentimeter ret roperitoneal lymph nodes benign in appearance and not changed. The spleen, kidneys, adrenals are unre markable. There is no evidence for any appreciable free fluid, or bowel obstruction. Tiny right pleu ral effusion is seen. CT pelvis: There is no evidence for mass, abscess formation, or any significant adenopathy within the pelvis. CONCLUSION: 1. Worsening metastatic disease to liver. 2. Metastatic adenopathy in the upper abdomen not present on the prior examination. Marcos Aquino MD on November 02, 2017 at 22:27 Board Certified Radiologist. This report was verified electronically.
[2017-11-02] MEDS ORDERED: MAGNESIUM HYDROXIDE SUSP 30 ML CUP PO PRN (23:15)
[2017-11-02] MEDS ORDERED: ALPRAZolam 0.25 MG TAB PO PRN (23:15)
[2017-11-02] MEDS ORDERED: MORPHINE SULFATE 2 MG/ML INJ IV PUSH PRN (23:15)
[2017-11-02] MEDS ORDERED: Vancomycin Consult Pharmacy 1 EA OTHER SCH (23:15)
[2017-11-02] MEDS ORDERED: ACETAMINOPHEN 325 MG TAB PO PRN (23:15)
[2017-11-02] MEDS ORDERED: SODIUM CHLORIDE 0.9% FLUSH 10 ML FLUSH IV FLUSH PRN (23:15)
[2017-11-02] MEDS ORDERED: SENNOSIDES 8.6 MG TAB PO PRN (23:15)
[2017-11-02] MEDS ORDERED: BISACODYL 10 MG SUPP RECTAL PRN (23:15)
[2017-11-02] MEDS ORDERED: LACTULOSE SYRUP 20 GM/30 ML CUP PO PRN (23:15)
[2017-11-03] VITALS (8 sets, daily range): BP systolic 106–131; BP diastolic 52–79; PULSE 90–132; RESP 16–20; TEMP 96.8–102; O2SAT 99–100
[2017-11-03] MEDS: VANCOMYCIN 1 GM/200 ML PREMIX IV SCH (02:12)
[2017-11-03] MEDS: SODIUM CHLOR 0.9% 1000 ML INJ 1,000 ML IV SCH ×3 (02:12→21:13)
[2017-11-03] MEDS: ONDANSETRON HCL 4 MG/2 ML VIAL IVP PRN (02:12)
[2017-11-03 06:41] LABS: CHLORIDE 101 MEQ/L (98-107); SODIUM (NA) 134 MEQ/L (136-145)
[2017-11-03 06:55] LABS: AUTOMATED NEUTROPHIL # 17.6 TH/MM3 (1.8-7.7); BASOPHIL # 0.1 TH/MM3 (0-0.2); BASOPHIL % 0.3 % (0.0-2.0); EOSINOPHIL % 0.1 % (0.0-4.0); HEMATOCRIT 25.5 % (35.0-46.0); HEMOGLOBIN 9.1 GM/DL (11.6-15.3); LYMPH % 2.6 % (9.0-44.0); LYMPHOCYTE # 0.5 TH/MM3 (1.0-4.8); MEAN CELL VOLUME 85.6 FL (80.0-100.0); MEAN CORPUSCULAR HEMOGLOBIN 30.4 PG (27.0-34.0); MEAN CORPUSCULAR HGB CONC 35.5 % (32.0-36.0); MEAN PLATELET VOLUME 6.9 FL (7.0-11.0); MONO % 3.7 % (0.0-8.0); MONOCYTE # 0.7 TH/MM3 (0-0.9); NEUT % 93.3 % (16.0-70.0); PLATELET COUNT 356 TH/MM3 (150-450); RED BLOOD COUNT 2.99 MIL/MM3 (4.00-5.30); RED CELL DISTRIBUTION WIDTH 17.4 % (11.6-17.2); WHITE BLOOD COUNT 18.9 TH/MM3 (4.0-11.0)
[2017-11-03 07:10] LABS: ALBUMIN 2.1 GM/DL (3.4-5.0); ALKALINE PHOSPHATASE 953 U/L (45-117); ALT (GPT) 110 U/L (10-53); AST (GOT) 208 U/L (15-37); BICARBONATE 23.8 MEQ/L (21.0-32.0); BLOOD UREA NITROGEN 13 MG/DL (7-18); CREATININE 0.51 MG/DL (0.50-1.00); GLOMERULAR FILTRATION RATE 118 ML/MIN (>89); GLUCOSE,RANDOM 100 MG/DL (74-106); TOTAL BILIRUBIN ADULT 4.8 MG/DL (0.2-1.0); TOTAL PROTEIN 5.9 GM/DL (6.4-8.2)
[2017-11-03 08:41] LABS: BANDS 20 % (0-6); LYMPHOCYTES 2 % (9-44); METAMYELOCYTES 1 % (0-1); MONOCYTES 1 % (0-8); NEUTROPHIL # MANUAL DIFF 18.3 TH/MM3 (1.8-7.7); POLYS (SEG NEUTROPHILS) 76 % (16-70)
[2017-11-03 08:43] LABS: OVALOCYTES 1+ (NORMAL)
--- NOTE | 2017-11-03 09:57 | MB ---
cc: DO Kyle CLIFTON MD, ZAFAR DATE OF CONSULTATION 11/03/2017. DATE OF [address] Mccormick ONCOLOGIC DIAGNOSIS Metastatic pancreatic adenocarcinoma. Initial diagnosis was established in July of 2016. Stage at the time of diagnosis, Stage IV with biopsy-proven liver metastases. TREATMENT HISTORY TO DATE The patient is status post palliative first-line therapy with FOLFIRINOX. Following this she received second line treatment with Abraxane/gemcitabine. Most recently she progressed on palliative third line therapy with Keytruda. CHIEF COMPLAINT Ms. Long reports having had progressive right upper quadrant and epigastric abdominal discomfort associated with nausea and loss of appetite. She tells me she has also been depressed because she recently heard of the passing of one of her long-time friends. She came into the emergency department for further workup and management. HISTORY OF PRESENT ILLNESS Ms. Long is a 77-year-old female who is well-known to me from my outpatient practice. Ms. Long was diagnosed in July of 2016 with metastatic pancreatic adenocarcinoma, the primary tumor involved the head of the pancreas. She has been on three separate lines of palliative systemic therapy over the past 14 months. Her disease is now rapidly progressive. Ms. Long had elected to be evaluated at a tertiary referral center and was referred to the [facility]. She was awaiting repeat biopsy of the liver with next generation sequencing to determine if she may be eligible for NCI MATCH trial. This biopsy was scheduled for today in [place]. Prior to her being able to go to [place], she presented to [facility] with abdominal pain, nausea, dehydration and palpitations. She was noted to have low-grade fevers, her liver functions were deranged with an elevated bilirubin level. CT scan of the abdomen and pelvis with IV contrast indicated progressive intrahepatic metastatic disease. She has been admitted to the hospital for supportive care. PAST MEDICAL HISTORY 1. Metastatic pancreatic head adenocarcinoma. 2. Osteopenic, 3. Hypertension. 4. History of colitis. 5. Cataracts. 6. Arthritis. 7. Anemia. PAST SURGICAL HISTORY 1. ERCP with biliary stent placement. 2. EUS with biopsies of the liver and of the pancreatic head. 3. Percutaneous biliary drain placement. 4. Cholecystectomy. 5. Colonoscopy. 6. Tonsillectomy. FAMILY HISTORY Mom at the age of 92, father at the age of 81. Father had lung cancer. SOCIAL HISTORY The patient is retired from sales. She lives at home with her . She denies tobaccoism or alcoholism. GYNECOLOGIC HISTORY 5, para 5. She is postmenopausal. ALLERGIES No known drug allergies. CURRENT INPATIENT MEDICATIONS 1. Cefepime 1 gram IV q.12 hours. 2. Normal saline 100 cc/hour. 3. Vancomycin 1 gram IV x1. 4. Tylenol 650 mg p.o. q.6 hours. 5. Alprazolam 0.25 mg p.o. q.6 hours as needed for anxiety. 6. Dulcolax rectal suppository 10 mg as needed for constipation. 7. Lactulose 30 mL p.o. daily as needed for severe constipation. 8. Milk of magnesia 30 mL p.o. q. 12 hours as needed for constipation. 9. Morphine 2 mg IV q.3 hours as needed for pain. 10. Zofran 4 mg IV q. 6 hours as needed for nausea or vomiting. 11. Oxycodone 5 mg p.o. q.4 hours as needed for pain. 12. Senokot 17.2 mg p.o. q.12 hours as needed for moderate constipation. REVIEW OF SYSTEMS A 13-point review of systems was obtained. The following are the pertinent positives and negatives: CONSTITUTIONAL: The patient reports feeling weak. She tells me she has no appetite, she reports having had a fever. She is losing weight. HEENT: Denies headaches, denies difficulty swallowing or soreness in the throat. RESPIRATORY: Reports exertional dyspnea. Denies cough or hemoptysis. Denies pleuritic chest pain. CARDIOVASCULAR: Denies angina-like chest pain, PND, orthopnea. She does report noticing palpitations. GI: Please see HPI for symptoms of abdominal pain, nausea, constipation. She denies abdominal distension. : No complaints. NNP: No focal sensory or motor deficits. MUSCULOSKELETAL: No complaints. No other complaints reported. PHYSICAL EXAMINATION VITAL SIGNS: Temperature 96.8 degrees Fahrenheit, heart rate ranging between 110 and 98 beats per minute, respiratory rate 20, blood pressure 120/74, O2 sats 100% on 1 liter nasal cannula. GENERAL PHYSICAL APPEARANCE: Ms. Long is an elderly lady, she appears to be frail and chronically ill. She is laying in bed under multiple layers of blankets. HEENT: Head is atraumatic, normocephalic. Conjunctivae are pale. Sclerae are icteric. EOMI, PERRLA. Oral exam - no pharyngeal erythema. NECK EXAM: No palpable cervical or supraclavicular adenopathy. RESPIRATORY EXAM: Good air movement bilaterally over the upper and middle lung zones. Decreased bibasilar breath sounds. CARDIOVASCULAR: Regular rhythm. Tachycardiac. S1, S2. No obvious murmurs, rubs or gallops. ABDOMINAL EXAM: Thin belly, tender at the epigastric and right upper quadrant areas. Positive bowel sounds. The liver is enlarged with tip palpable 2 cm below the costal margin. LOWER EXTREMITIES: No pretibial edema. No calf tenderness. MUSCULOSKELETAL: Generally decreased muscle mass and tone. NNP: No obvious focal sensory or motor deficits. IMAGING STUDIES CT scan of the abdomen and pelvis dated 11/02/2017 with IV contrast indicates worsening metastatic disease to the liver. Metastatic adenopathy in the upper abdomen. Biliary stent is in place. Primary tumor of the pancreatic head is noted. LABORATORY FINDINGS Blood work dated 11/03/2017: WBC count 18.9, hemoglobin 9.1 gm/dl, hematocrit 25.5%, platelet count 356, absolute neutrophil count is 18.3. Chemistries: Sodium 134, potassium 3.5, chloride 101, bicarb 23.8, BUN 13, creatinine 0.51, EGFR 118, random glucose 100, calcium 8, total bilirubin 4.8. AST 208, ALT 110, alkaline phosphatase 953, albumin is 2.1. ASSESSMENT Ms. Long is a 77-year-old female with a diagnosis of metastatic pancreatic adenocarcinoma. She was initially diagnosed in 2015. She has been under my care since her initial diagnosis. She has been on multiple lines of palliative systemic therapy including FOLFIRINOX, Abraxane/gemcitabine and most recently Keytruda which is a form of immunotherapy. The patient had been hopeful to undergo evaluation for clinical trial at the [facility] and was scheduled to undergo repeat biopsy of the liver today with the tumor specimen being analyzed for specific mutations which could be targeted. She was hoping to be matched to an active drug on the NCI MATCH trial. Unfortunately she was admitted to the hospital last night with complaints of worsening abdominal pain, nausea and decreased oral intake. She was noted to have a low-grade temperature and was also tachycardiac. Her liver functions indicate an intrahepatic/extrahepatic obstruction with elevated alkaline phosphatase and elevated total bilirubin level which is new. She does have a biliary stent in place. Her AST and ALT levels are also deranged. Imaging studies indicate worsening metastatic disease in the liver. This is compared to scans performed in August of 2017. RECOMMENDATIONS 1. Metastatic pancreatic head adenocarcinoma: It is my recommendation that Ms. Long seriously consider hospice given her worsening performance status, worsening metastatic disease to the liver and worsening hepatic function. I am not certain she would be eligible for any clinical trial given the degree of hepatic dysfunction she has and her overall poor ECOG performance status. She tells me she is hopeful, however, to go on a clinical trial but then in the next sentence tells me she is willing to talk to hospice and palliative care. This patient is Hospice appropriate if she so chooses. 2. Continue supportive care with antiemetic therapy, IV fluid hydration and pain control. Agree with empiric antibiotic therapy as well. I would recommend adding on additional gram-negative coverage given the presence of her biliary stent and the concern for possible ascending cholangitis. Therefore I will schedule the cefepime. MD JULIA Fortune/ELVIS /9:02 AM /9:27 AM [email or web address]
[2017-11-03] MEDS: DOCUSATE SODIUM 50 MG/SENNA 8.6 MG TAB PO SCH ×3 (10:47→21:14)
[2017-11-03] MEDS: SODIUM CHLORIDE 0.9% FLUSH 10 ML FLUSH IV FLUSH SCH ×2 (10:47→21:00)
[2017-11-03] MEDS: CEFEPIME INJ 1,000 MG in SODIUM CHLORIDE 0.9% INJ 100 ML IV SCH ×2 (10:47→21:13)
[2017-11-03] MEDS ORDERED: IBUPROFEN 400 MG TAB PO PRN (11:15)
--- NOTE | 2017-11-03 11:35 | HHI.HP ---
[facility] Aamir Conley Do, MD Admission Diagnosis intractable vomiting with dehydration, leukocytosis, transaminitis Diagnoses: (1) Nausea & vomiting (2) Dehydration (3) Hyponatremia (4) Leukocytosis (5) Pancreatic cancer (6) Liver metastases (7) Sepsis Chief Complaint: Nausea/vomiting/fever Travel History International Travel<30 Days: No Contact w/Intl Traveler <30 Da: No Traveled to Known Affected Are: No History of Present Illness The patient is a 77-year-old female with known history of metastatic pancreatic cancer. She presented to the emergency department with complaints of nausea and vomiting that started Friday. She has not been able to keep any food or drink down since then. Nausea and vomiting are somewhat better today. Denied chest pain or dyspnea. She has had intermittent fever. She is scheduled for liver biopsy at [facility] in [place] today. Review of Systems Constitutional: COMPLAINS OF: Fever, Chills, DENIES: Night Sweats Eyes: DENIES: Blurred vision, Vision loss Ears, nose, mouth, throat: DENIES: Hearing loss Respiratory: DENIES: Cough, Wheezing, Sputum production, Shortness of breath Cardiovascular: DENIES: Chest pain, Palpitations, Dyspnea on Exertion, Lower Extremity Edema Gastrointestinal: COMPLAINS OF: Abdominal pain, Constipation, Nausea, Vomiting , DENIES: Diarrhea Genitourinary: DENIES: Urinary frequency, Urinary incontinence, Urgency, Hematuria, Dysuria, Nocturia Musculoskeletal: DENIES: Joint pain, Muscle aches Integumentary: DENIES: Pruritus, Rash Hematologic/lymphatic: DENIES: Bruising Neurologic: DENIES: Headache Past Family Social History Past Medical History Pancreatic cancer Hypertension Arthritis Past Surgical History Cholecystectomy Bilateral cataract surgery Pancreatic stent [id number] placement Tonsillectomy Reported Medications [trandolapril] 1 Tab PO DAILY Cromolyn Opth Drops 4% Soln 1 Drop EACH EYE Q6H Alprazolam 0.25 Mg Tab 0.25 Mg PO Q6H PRN Verapamil SR (Verapamil HCl) 240 Mg Tab 240 Mg PO DAILY Allergies: Coded Allergies: No Known Allergies (Unverified Allergy, Unknown, 11/02/17) Family History Cancer Social History Denies alcohol, tobacco, or illicit drug use. Physical Exam Vital Signs Vital Signs Date Time Temp Pulse Resp B/P (MAP) Pulse Ox O2 Delivery O2 Flow Rate FiO2 11/03/17 10:44 102.0 11/03/17 08:00 98.7 106 16 131/69 (89) 100 11/03/17 04:00 96.8 98 20 120/74 (89) 100 11/03/17 04:00 96.8 98 20 120/74 (89) 100 11/03/17 01:00 97.5 106 16 120/79 (93) 100 11/03/17 00:39 110 16 99 Nasal Cannula 1.00 11/02/17 23:57 110 16 118/56 (76) 99 Nasal Cannula 1.00 11/02/17 23:00 103 11/02/17 22:53 100.4 11/02/17 22:27 100.4 11/02/17 21:47 117 16 134/64 (87) 99 Nasal Cannula 1.00 11/02/17 20:10 98 Nasal Cannula 1.00 11/02/17 20:10 130 16 98 Nasal Cannula 1.00 11/02/17 20:10 98 Nasal Cannula 1.00 11/02/17 19:53 100.4 160 20 148/92 (110) 96 Physical Exam GENERAL: Chronically ill-appearing elderly female in no acute distress. HEENT: Normocephalic, atraumatic. Pupils equal, round and reactive. Extraocular movements intact. No scleral icterus. No injection or drainage. Oropharynx is clear. Mucous membranes are moist. CARDIOVASCULAR: Regular rate and rhythm without murmurs, gallops, or rubs. RESPIRATORY: Clear to auscultation. No wheezes, rales, or rhonchi. Breathing is non-labored. GASTROINTESTINAL: Abdomen soft, nondistended. Tenderness to palpation in the midepigastric and right upper quadrant regions. Positive bowel sounds. EXTREMITIES: No lower extremity edema. No calf tenderness. PSYCH: Alert and oriented x 3. Laboratory Laboratory Tests Test 11/02/17 20:14 11/02/17 22:22 11/02/17 23:22 11/03/17 06:00 White Blood Count 24.5 18.9 Red Blood Count 4.02 2.99 Hemoglobin 11.6 9.1 Hematocrit 34.0 25.5 Mean Corpuscular Volume 84.5 85.6 Mean Corpuscular Hemoglobin 28.8 30.4 Mean Corpuscular Hemoglobin Concent 34.1 35.5 Red Cell Distribution Width 17.2 17.4 Platelet Count 526 356 Mean Platelet Volume 6.7 6.9 Neutrophils (%) (Auto) 95.2 93.3 Lymphocytes (%) (Auto) 1.1 2.6 Monocytes (%) (Auto) 1.2 3.7 Eosinophils (%) (Auto) 0.0 0.1 Basophils (%) (Auto) 2.5 0.3 Neutrophils # (Auto) 23.3 17.6 Lymphocytes # (Auto) 0.3 0.5 Monocytes # (Auto) 0.3 0.7 Eosinophils # (Auto) 0.0 0.0 Basophils # (Auto) 0.6 0.1 CBC Comment AUTO DIFF AUTO DIFF Differential Total Cells Counted 100 100 Neutrophils % (Manual) 82 76 Band Neutrophils % 17 20 Monocytes % 1 1 Neutrophils # (Manual) 24.3 18.3 Differential Comment FINAL DIFF MANUAL FINAL DIFF MANUAL Platelet Estimate HIGH NORMAL Platelet Morphology Comment CLUMPED NORMAL Red Cell Morphology Comment NORMAL Prothrombin Time 13.3 Prothromb Time International Ratio 1.3 Activated Partial Thromboplast Time 25.7 Blood Urea Nitrogen 18 13 Creatinine 0.95 0.51 Random Glucose 132 100 Total Protein 7.8 5.9 Albumin 2.7 2.1 Calcium Level 8.6 8.0 Magnesium Level 1.8 Alkaline Phosphatase 1297 953 Aspartate Amino Transf (AST/SGOT) 311 208 Alanine Aminotransferase (ALT/SGPT) 139 110 Total Bilirubin 5.0 4.8 Sodium Level 129 134 Potassium Level 3.2 3.5 Chloride Level 95 101 Carbon Dioxide Level 21.3 23.8 Anion Gap 13 9 Estimat Glomerular Filtration Rate 57 118 Total Creatine Kinase 46 Troponin I LESS THAN 0.02 Lipase 131 104 Lactic Acid Level 1.8 Lymphocytes % 2 Metamyelocytes 1 Ovalocytes 1+ Date/Time Source Procedure Growth Status 11/02/17 20:19 Blood Peripheral Aerobic Blood Culture Pending Received 11/02/17 20:19 Blood Peripheral Anaerobic Blood Culture Pending Received 11/03/17 01:50 Nasal Aspirate Influenza Types A,B Antigen (FELICIA) - Final NEGATIVE FOR FLU A AND B ANTIGEN.... Complete Result Diagram: 11/03/17 0600 11/03/17 0600 Imaging Last Impressions Abdomen/Pelvis CT 11/02/[id number] Signed Impressions: Service Date/Time: Thursday, November 02, 2017 21:55 - CONCLUSION: 1. Worsening metastatic disease to liver. 2. Metastatic adenopathy in the upper abdomen not present on the prior examination. Marcos Aquino MD Chest X-Ray 11/02/172014 Signed Impressions: Service Date/Time: Thursday, November 02, 2017 20:35 - CONCLUSION: No acute cardiopulmonary disease. Marcos Aquino MD Caprinotto VTE Risk Assessment Caprini VTE Risk Assessment: Mod/High Risk (score >= 2) Caprini Risk Assessment Model Point Value = 1 Point Value = 2 Point Value = 3 Point Value = 5 Age 41-60 Minor surgery BMI > 25 kg/m2 Swollen legs Varicose veins or History of unexplained or recurrent spontaneous Oral contraceptives or hormone replacement Sepsis (< 1 month) Serious lung disease, including pneumonia (< 1 month) Abnormal pulmonary function Acute myocardial infarction Congestive heart failure (< 1 month) History of inflammatory bowel disease Medical patient at bed rest Age 61-74 Arthroscopic surgery Major open surgery (> 45 min) Laparoscopic surgery (> 45 min) Malignancy Confined to bed (> 72 hours) Immobilizing plaster cast Central venous access Age >= 75 History of VTE Family history of VTE Factor V Leiden Prothrombin [id number] Lupus anticoagulant Anticardiolipin antibodies Elevated serum homocysteine Heparin-induced thrombocytopenia Other congenital or acquired thrombophilia Stroke (< 1 month) Elective arthroplasty Hip, pelvis, or leg fracture Acute spinal cord injury (< 1 month) Prophylaxis Regimen Total Risk Factor Score Risk Level Prophylaxis Regimen 0-1 Low Early ambulation 2 Moderate Order ONE of the following: *Sequential Compression Device (SCD) *Heparin 5000 units SQ BID 3-4 Higher Order ONE of the following medications: *Heparin 5000 units SQ TID *Enoxaparin/Lovenox 40 mg SQ daily (WT < 150 kg, CrCl > 30 mL/min) *Enoxaparin/Lovenox 30 mg SQ daily (WT < 150 kg, CrCl > 10-29 mL/min) *Enoxaparin/Lovenox 30 mg SQ BID (WT < 150 kg, CrCl > 30 mL/min) AND/OR *Sequential Compression Device (SCD) 5 or more Highest Order ONE of the following medications: *Heparin 5000 units SQ TID (Preferred with Epidurals) *Enoxaparin/Lovenox 40 mg SQ daily (WT < 150 kg, CrCl > 30 mL/min) *Enoxaparin/Lovenox 30 mg SQ daily (WT < 150 kg, CrCl > 10-29 mL/min) *Enoxaparin/Lovenox 30 mg SQ BID (WT < 150 kg, CrCl > 30 mL/min) AND *Sequential Compression Device (SCD) Assessment and Plan Assessment and Plan 1. Nausea/vomiting: Improving. Continue Zofran as needed. 2. Metastatic pancreatic head adenocarcinoma: Appreciate oncology recommendations. Discussed with Dr. Cho. Patient was scheduled to have a liver biopsy done at [facility] today. Continue pain control. Per oncology, patient is hospice appropriate. Palliative care has been consulted. 3. Hypertension: Continue verapamil. 4. Sepsis: Patient presented with fever, leukocytosis, tachycardia. Source presumed to be abdominal. Continue antibiotics, IV fluids. 5. DVT prophylaxis: JAYNA Iverson, subcutaneous heparin. Rakan Agudelo MD Nov 03, 2017 11:35
[2017-11-03] MEDS: HEPARIN SODIUM - SQ 10,000 UNITS/ML VIAL SQ SCH ×3 (13:06→21:27)
--- NOTE | 2017-11-03 13:06 | PD.CONS ---
Consult Service Palliative Care Consult Requested By Dr. Diaz Primary Care Physician Aamir Conley Do, MD Reason for Consultation a. To assist with evaluation and management of symptoms including:nausea and pain. b. To assist medical decision maker(s) with: better understanding of current medical conditions; weighing benefits/burdens of medical treatment options; making medical treatment decisions. HPI History of Present Illness Patient is a 77-year-old female who was diagnosed with metastatic pancreatic adenocarcinoma on July 2016. In terms of her treatment she has had 3 separate lines of palliative chemotherapy for the past 14 months despite treatment, disease continue to rapidly progress. Patient elected for referral to tertiary center to [facility]. Patient is awaiting biopsy with next generation sequencing to determine if she may be eligible for clinical trial medication. It was initially scheduled November 03, 2017. Unfortunately she was not able to go as she presented to [facility] for abdominal pain, nausea, dehydration and palpitation. In the ER: * Temperature is 100.4, pulse is 160, respirations 20, blood pressure is 140/ 92. Pulse ox is 96%. * WBC is 24.5, hemoglobin is 11.6, hematocrit is 34.0, platelet is 526 * Sodium is 129, potassium is 3.2, chloride is 95, bicarbonate is 21.3, BUN 18, creatinine 0.95 * AST is 311, ALTs 139, alkaline phosphatase is 1297, creatinine kinase 46, * troponin I 0.02, albumin is 2.7 * PT 13.3, 0.3 * Microbiology shows gram-negative andrea in blood cultures. * Nasal washing is negative for influenza A and B. * Chest x-ray shows no acute cardiopulmonary disease * Abdominal x-ray shows worsening metastatic disease to the liver. There is metastatic adenopathy in the upper abdomen and not present on the prior examination. Patient is admitted for dehydration, antibiotics, control for nausea and vomiting. Oncology was consulted. Oncology feels uncertain at this point that given worsening hepatic function, and overall poor performance status, she would be eligible for any treatment clinical trials. Palliative care was consulted to review goals of care. Oncology is also scheduled cefepime for gram -negative coverage. On my visit pt did say nausea and vomiting was better. She feels benzodiazpine has helped it more than zofran. She denies pain at this time, and just state, it is mostly pressure. Pt's daughter and at bedside. She has had some fevers. Discussion about pt's condition. She endorse she was feeling fine and well last week, but just more nauseated this week. In addition pt is greifing as patient just lost her friend of 50 years. We talked about palliative chemo and that it is not curative. I talked about my concern that pt may not qualify for further treatment or even clinical trial. Pt state that she would like to try. Discussion about hospice was initiated, but for now pt is not ready for comfort measures only. goals of care is: == want to continue antibiotics, in hopes fever will subside. == they plan on pusing back appointment with [facility] to a later date for biopsy. == I have offer to call oncologist at [facility], but for now they decline. == Pt did say she thinks she wants to be a no code and does not want life support, but wants to discuss with family. For now full code == Pt wants to think about advance directives. Health care surrogate and community DNR is left at bedside. Function/Cognitive Trajectory Disease has progressed have episodes of nausea and vomiting, but last week, felt really good. Review of Systems ROS Limitations: Clinical Condition Past Family Social History Coded Allergies: No Known Allergies (Unverified Allergy, Unknown, 11/02/17) Past Medical History Osteopenia Hypertension History of colitis Cataracts Anemia Arthritis Past Surgical History ERCP with biliary stent placement Biopsy of the liver and of the pancreatic head Percutaneous biliary drain placement Cholecystectomy Colonoscopy Tonsillectomy Reported Medications Verapamil Alprazolam Chromelin off formal drops Trandolapril Current Medications Medications (Trade) Dose Ordered Sig/Puneet Route Start Time Stop Time Status Last Admin Pharmacy Profile Note 0 ml @ 0 mls/hr UNSCH OTHER 11/02/17 23:15 Cefepime HCl 1000 mg/Sodium Chloride 100 ml @ 200 mls/hr Q12H IV 11/03/17 09:00 11/03/17 10:47 Sodium Chloride 1,000 ml @ 100 mls/hr Q10H IV 11/02/17 23:01 11/03/17 02:12 (NS Flush) 2 ml UNSCH PRN IV FLUSH 11/02/17 23:15 11/03/17 02:12 (NS Flush) 2 ml BID IV FLUSH 2/5/18 09:00 11/03/17 10:47 (Zofran Inj) 4 mg Q6H PRN IVP 11/02/17 23:15 11/03/17 02:12 (Morphine Inj) 2 mg Q3H PRN IV PUSH 11/02/17 23:15 (Roxicodone) 5 mg Q4H PRN PO 11/02/17 23:15 (Mi-Colace) 1 tab BID PO 11/03/17 09:00 11/03/17 10:47 (Milk Of Magnesia Liq) 30 ml Q12H PRN PO 11/02/17 23:15 (Senokot) 17.2 mg Q12H PRN PO 11/02/17 23:15 (Dulcolax Supp) 10 mg DAILY PRN RECTAL 11/02/17 23:15 (Lactulose Liq) 30 ml DAILY PRN PO 11/02/17 23:15 (Xanax) 0.25 mg Q6H PRN PO 11/02/17 23:15 Vancomycin/Sodium Chloride 200 ml @ 200 mls/hr DAILY@0100 IV 11/03/17 01:00 11/03/17 02:12 Miscellaneous Information SPECIFIC LAB TO BE TINO... ONCE ONCE .XX 11/05/17 00:45 11/05/17 00:46 (Motrin) 400 mg Q6H PRN PO 11/03/17 11:15 (Heparin Inj) 5,000 units Q8HR SQ 11/03/17 14:00 (Isoptin Sr) 240 mg DAILY PO 11/03/17 13:00 Family History Mother at age 92. Father at age of 81 of lung cancer Substance Use Tobacco: Denies Alcohol: Denies Prescription med abuse: Denies Illicits: Denies Psychosocial History Patient is retired from sales. She lives with her at home. Spiritual/Cultural Factors No roman catholic as listed Living Will: Never completed Health Care Surrogate: Never completed Durable Power of Ortho Rn: Never completed Physical Exam Vital Signs Date Time Temp Pulse Resp B/P (MAP) Pulse Ox O2 Delivery O2 Flow Rate FiO2 11/03/17 10:44 102.0 11/03/17 08:00 98.7 106 16 131/69 (89) 100 11/03/17 04:00 96.8 98 20 120/74 (89) 100 11/03/17 04:00 96.8 98 20 120/74 (89) 100 11/03/17 01:00 97.5 106 16 120/79 (93) 100 11/03/17 00:39 110 16 99 Nasal Cannula 1.00 11/02/17 23:57 110 16 118/56 (76) 99 Nasal Cannula 1.00 11/02/17 23:00 103 11/02/17 22:53 100.4 11/02/17 22:27 100.4 11/02/17 21:47 117 16 134/64 (87) 99 Nasal Cannula 1.00 11/02/17 20:10 98 Nasal Cannula 1.00 11/02/17 20:10 130 16 98 Nasal Cannula 1.00 11/02/17 20:10 98 Nasal Cannula 1.00 11/02/17 19:53 100.4 160 20 148/92 (110) 96 Exam CONSTITUTIONAL/GENERAL: This is an adequately nourished patient, in no apparent distress. TUBES/LINES/DRAINS: SKIN: No jaundice, rashes, or lesions. Ecchymoses on upper extremities. No wounds seen anteriorly. Skin temperature appropriate. Not diaphoretic. HEAD: Atraumatic. Normocephalic. EYES: Pupils equal and round and reactive. Extraocular motions intact. No scleral icterus. No injection or drainage. Fundi not examined. ENT: Hearing grossly normal. Nose without bleeding or purulent drainage. Throat without visible erythema, exudates, masses, or lesions. NECK: Trachea midline. Supple, nontender. No palpable thyroid enlargement or nodularity. CARDIOVASCULAR: Regular rate and rhythm without murmurs, gallops, or rubs. No JVD. Peripheral pulses symmetric. RESPIRATORY/CHEST: Symmetric, unlabored respirations. Clear to auscultation. Breath sounds equal bilaterally. No wheezes, rales, or rhonchi. GASTROINTESTINAL: Abdomen soft, non-tender, nondistended. No hepato-splenomegaly , or palpable masses. No guarding. Bowel sounds present. GENITOURINARY: Without palpable bladder distension. Wiggins catheter in place. MUSCULOSKELETAL: Extremities without clubbing, cyanosis, or edema. No joint tenderness or effusion noted. No calf tenderness. No mottling or clubbing. LYMPHATICS: No palpable cervical or supraclavicular adenopathy. NEUROLOGICAL: Awake and alert. Motor and sensory grossly within normal limits. Follows commands. Cognitively sharp. Moves all extremities. PSYCHIATRIC: No obvious anxiety/depression. no apparent hallucinations or other psychotic thought process. Diagnostic Tests Laboratory Laboratory Tests Test 11/02/17 20:14 11/02/17 22:22 11/02/17 23:22 11/03/17 06:00 White Blood Count 24.5 TH/MM3 (4.0-11.0) 18.9 TH/MM3 (4.0-11.0) Red Blood Count 4.02 MIL/MM3 (4.00-5.30) 2.99 MIL/MM3 (4.00-5.30) Hemoglobin 11.6 GM/DL (11.6-15.3) 9.1 GM/DL (11.6-15.3) Hematocrit 34.0 % (35.0-46.0) 25.5 % (35.0-46.0) Mean Corpuscular Volume 84.5 FL (80.0-100.0) 85.6 FL (80.0-100.0) Mean Corpuscular Hemoglobin 28.8 PG (27.0-34.0) 30.4 PG (27.0-34.0) Mean Corpuscular Hemoglobin Concent 34.1 % (32.0-36.0) 35.5 % (32.0-36.0) Red Cell Distribution Width 17.2 % (11.6-17.2) 17.4 % (11.6-17.2) Platelet Count 526 TH/MM3 (150-450) 356 TH/MM3 (150-450) Mean Platelet Volume 6.7 FL (7.0-11.0) 6.9 FL (7.0-11.0) Neutrophils (%) (Auto) 95.2 % (16.0-70.0) 93.3 % (16.0-70.0) Lymphocytes (%) (Auto) 1.1 % (9.0-44.0) 2.6 % (9.0-44.0) Monocytes (%) (Auto) 1.2 % (0.0-8.0) 3.7 % (0.0-8.0) Eosinophils (%) (Auto) 0.0 % (0.0-4.0) 0.1 % (0.0-4.0) Basophils (%) (Auto) 2.5 % (0.0-2.0) 0.3 % (0.0-2.0) Neutrophils # (Auto) 23.3 TH/MM3 (1.8-7.7) 17.6 TH/MM3 (1.8-7.7) Lymphocytes # (Auto) 0.3 TH/MM3 (1.0-4.8) 0.5 TH/MM3 (1.0-4.8) Monocytes # (Auto) 0.3 TH/MM3 (0-0.9) 0.7 TH/MM3 (0-0.9) Eosinophils # (Auto) 0.0 TH/MM3 (0-0.4) 0.0 TH/MM3 (0-0.4) Basophils # (Auto) 0.6 TH/MM3 (0-0.2) 0.1 TH/MM3 (0-0.2) CBC Comment AUTO DIFF AUTO DIFF Differential Total Cells Counted 100 100 Neutrophils % (Manual) 82 % (16-70) 76 % (16-70) Band Neutrophils % 17 % (0-6) 20 % (0-6) Monocytes % 1 % (0-8) 1 % (0-8) Neutrophils # (Manual) 24.3 TH/MM3 (1.8-7.7) 18.3 TH/MM3 (1.8-7.7) Differential Comment FINAL DIFF MANUAL FINAL DIFF MANUAL Platelet Estimate HIGH (NORMAL) NORMAL (NORMAL) Platelet Morphology Comment CLUMPED (NORMAL) NORMAL (NORMAL) Red Cell Morphology Comment NORMAL (NORMAL) Prothrombin Time 13.3 SEC (9.8-11.6) Prothromb Time International Ratio 1.3 RATIO Activated Partial Thromboplast Time 25.7 SEC (24.3-30.1) Blood Urea Nitrogen 18 MG/DL (7-18) 13 MG/DL (7-18) Creatinine 0.95 MG/DL (0.50-1.00) 0.51 MG/DL (0.50-1.00) Random Glucose 132 MG/DL (74-106) 100 MG/DL (74-106) Total Protein 7.8 GM/DL (6.4-8.2) 5.9 GM/DL (6.4-8.2) Albumin 2.7 GM/DL (3.4-5.0) 2.1 GM/DL (3.4-5.0) Calcium Level 8.6 MG/DL (8.5-10.1) 8.0 MG/DL (8.5-10.1) Magnesium Level 1.8 MG/DL (1.5-2.5) Alkaline Phosphatase 1297 U/L (45-117) 953 U/L (45-117) Aspartate Amino Transf (AST/SGOT) 311 U/L (15-37) 208 U/L (15-37) Alanine Aminotransferase (ALT/SGPT) 139 U/L (10-53) 110 U/L (10-53) Total Bilirubin 5.0 MG/DL (0.2-1.0) 4.8 MG/DL (0.2-1.0) Sodium Level 129 MEQ/L (136-145) 134 MEQ/L (136-145) Potassium Level 3.2 MEQ/L (3.5-5.1) 3.5 MEQ/L (3.5-5.1) Chloride Level 95 MEQ/L (98-107) 101 MEQ/L (98-107) Carbon Dioxide Level 21.3 MEQ/L (21.0-32.0) 23.8 MEQ/L (21.0-32.0) Anion Gap 13 MEQ/L (5-15) 9 MEQ/L (5-15) Estimat Glomerular Filtration Rate 57 ML/MIN (>89) 118 ML/MIN (>89) Total Creatine Kinase 46 U/L (26-192) Troponin I LESS THAN 0.02 NG/ML Lipase 131 U/L (73-393) 104 U/L (73-393) Lactic Acid Level 1.8 mmol/L (0.4-2.0) Lymphocytes % 2 % (9-44) Metamyelocytes 1 % (0-1) Ovalocytes 1+ (NORMAL) Result Diagram: 11/03/17 0600 11/03/17 0600 Microbiology Microbiology Date/Time Source Procedure Growth Status 11/02/17 20:19 Blood Peripheral Aerobic Blood Culture - Preliminary Gram Negative Andrea Resulted 11/02/17 20:19 Anaerobic Blood Culture - Preliminary Gram Negative Andrea Resulted 11/02/17 20:14 Blood Peripheral Aerobic Blood Culture - Preliminary Gram Negative Andrea Resulted 11/02/17 20:14 Anaerobic Blood Culture - Preliminary Gram Negative Andrea Resulted 11/03/17 01:50 Nasal Aspirate Influenza Types A,B Antigen (FELICIA) - Final NEGATIVE FOR FLU A AND B ANTIGEN.... Complete Imaging Last Impressions Abdomen/Pelvis CT 11/02/172129 Signed Impressions: Service Date/Time: Thursday, November 02, 2017 21:55 - CONCLUSION: 1. Worsening metastatic disease to liver. 2. Metastatic adenopathy in the upper abdomen not present on the prior examination. Marcos Aquino MD Chest X-Ray 11/02/172014 Signed Impressions: Service Date/Time: Thursday, November 02, 2017 20:35 - CONCLUSION: No acute cardiopulmonary disease. Marcos Aquino MD Patient/Family Conference Issues Discussed: * Palliative care role, purpose, approach * Additional medical, psychosocial, and spiritual history * Patients general health, functional status, and cognitive changes in the months leading up to the current hospitalization * Patient/family understanding of the current medical problems * Patient/family understanding of prognosis * Patients goals of care as best understood from advance directives and/or conversations and/or values * Current medical treatment options and benefits/burdens of those options * Likely scenarios comparing ongoing aggressive care with a transition to comfort measures only * Questions answered to the best of my ability * Palliative care contact information provided Assessment and Plan Disease Oriented Problem List: (1) Pancreatic cancer (2) Leukocytosis (3) Liver metastases (4) Hyponatremia Symptom Scale: (1) Pain 0-10 Scale: Unable to quantify (say it is not pain, but more pressure. ) (2) Nausea 0-10 Scale: Unable to quantify Pertinent Non-Medical Issues Psychosocial: Patient is with 5 children Spiritual: Legal: Pt is contemplating who to designate as health care surrogate. For now proxy is pt's Ethical issues impacting care: none. Important Contacts Naveen Long (Spouse) [phone] Gabbi Cardona (daughter) [phone] and [phone] Prognosis Prognosis is poor and oncology feels patient is hospice appropriate. Code Status: Full Code Plan == capacity- pt has capacity to make medical decisions. == health care decision maker- pt currently comptemplating who to designate as health care surrogate (forms at bedside) For now health care proxy is pt's . == Code: Full code for now. (contemplating DNR, wants to discuss with family , [facility] DNR at bedside). == symtoms: nausea- 2nd to cancer burden, she did say smells trigers it. So far she relate benzos works the best. Continue benzodiaszapem and zofran. Pain - denies pain, just more abdominal discommfort. using pain meds very sparingly, continue prns. == goals: * want to continue antibiotics, in hopes fever will subside. * they plan on pusing back appointment with [facility] to a later date for biopsy. Pt state last week she felt really well, and if she had biopsy last week, she would have been strong enough for it. Pt and the family is not ready to transition to comfort measures just yet. * I have offer to call oncologist at [facility], but for now they decline. * Conversation for hospice initiated but pt and family decline comfort measures only for now. * Pt did say she thinks she wants to be a no code and does not want life support, but wants to discuss with family. For now full code * Pt wants to think about advance directives. Health care surrogate and community DNR is left at bedside. == palliative care will follow up to provide recommendation for symptom managment and review goals of care as pt's condition evolves. Thank you for the opportunity to participate in the care of Ms. Long. Attestation To help prompt me to consider important information that might be impacting today's encounter and assessment, information from prior notes written by myself or my colleagues may have been "brought forward" into today's note. My signature on this note, however, is an attestation that I personally performed the exam, history, and/or decision-making noted today, and, unless otherwise indicated, the interactions with patient, family, and staff as well as the review of records all occurred today. I also attest that the listed assessment and stated plan reflect my best clinical judgment today based on the combination of historical information, prior notes, and today's exam/ interactions. When time spent is documented, it refers only to time spent today by the signer, or if indicated, combined time spent today by collaborating physician/nurse practitioner. Major White MD Nov 03, 2017 13:06
[2017-11-03] MEDS: VERAPAMIL HCL 240 MG SUSTAINED RELEASE TAB PO SCH (14:55)
[2017-11-03 20:08] LABS: BILIRUBIN, URINE MOD (NEG); BLOOD, URINE MOD (NEG); GLUCOSE,URINE NEG (NEG); KETONE, URINE NEG (NEG); NITRITE,URINE NEG (NEG); URINE LEUKOCYTE ESTERASE TRACE (NEG)
[2017-11-03 20:23] LABS: URINE COLOR YELLOW (YELLW/STRAW)
[2017-11-03 20:24] LABS: HYALINE CAST, URINE 0-2 /lpf (RARE); WHITE BLOOD CELL CAST, URINE 0-2 /lpf
[2017-11-03 20:25] LABS: WBC, URINE 0-2 /hpf (0-5)
[2017-11-03 20:26] LABS: AMORPHOUS SEDIMENT, URINE FEW; BACTERIA, URINE FEW /hpf; RBC, URINE 0-3 /hpf (0-3); SQUAMOUS EPITHELIAL CELL URINE 0-5 /hpf (0-5)
--- NOTE | 2017-11-03 22:10 | EKG ---
Date Performed: 11/02/2017 Time Performed: 20:10:04 PTAGE: 77 years EKG: SINUS TACHYCARDIA, POSSIBLE ATRIAL FLUTTER NONSPECIFIC ST & T-WAVE ABNORMALITY ABNORMAL RHY THM ECG NO PREVIOUS TRACING DOCTOR: Kevin Kothari Interpretating Date/Time 11/03/2017 22:02:51
[2017-11-04] VITALS: BP 116/56; PULSE 88; RESP 16; TEMP 97.2; O2SAT 98
[2017-11-04] MEDS: VANCOMYCIN 1 GM/200 ML PREMIX IV SCH (01:40)
[2017-11-04] MEDS: HEPARIN SODIUM - SQ 10,000 UNITS/ML VIAL SQ SCH ×3 (05:31→21:41)
[2017-11-04] MEDS: SODIUM CHLOR 0.9% 1000 ML INJ 1,000 ML IV SCH ×2 (05:32→15:20)
[2017-11-04 07:01] LABS: HEMATOCRIT 24.8 % (35.0-46.0); HEMOGLOBIN 8.8 GM/DL (11.6-15.3); MEAN CELL VOLUME 86.3 FL (80.0-100.0); MEAN CORPUSCULAR HEMOGLOBIN 30.7 PG (27.0-34.0); MEAN CORPUSCULAR HGB CONC 35.6 % (32.0-36.0); PLATELET COUNT 306 TH/MM3 (150-450); RED BLOOD COUNT 2.88 MIL/MM3 (4.00-5.30); WHITE BLOOD COUNT 16.8 TH/MM3 (4.0-11.0)
[2017-11-04 07:10] LABS: ALBUMIN 1.9 GM/DL (3.4-5.0); BICARBONATE 24.8 MEQ/L (21.0-32.0); CALCIUM 7.3 MG/DL (8.5-10.1); CREATININE 0.48 MG/DL (0.50-1.00); TOTAL BILIRUBIN ADULT 4.6 MG/DL (0.2-1.0); TOTAL PROTEIN 5.8 GM/DL (6.4-8.2)
[2017-11-04 07:40] LABS: BANDS 17 % (0-6); LYMPHOCYTES 4 % (9-44); MONOCYTES 2 % (0-8); NEUTROPHIL # MANUAL DIFF 15.8 TH/MM3 (1.8-7.7); POLYS (SEG NEUTROPHILS) 77 % (16-70)
[2017-11-04 07:41] LABS: OVALOCYTES 1+ (NORMAL); ROULEAUX PRESENT (NORMAL)
[2017-11-04 08:00] VITALS: BP_SYST 110; BP_SYST 70; BP_DIAS 70; PULSE 92; RESP 18; TEMP 98.7; O2SAT 100
[2017-11-04] MEDS: VERAPAMIL HCL 240 MG SUSTAINED RELEASE TAB PO SCH (08:33)
[2017-11-04] MEDS: SODIUM CHLORIDE 0.9% FLUSH 10 ML FLUSH IV FLUSH SCH ×2 (08:33→21:00)
[2017-11-04] MEDS: CEFEPIME INJ 1,000 MG in SODIUM CHLORIDE 0.9% INJ 100 ML IV SCH ×2 (08:34→21:37)
[2017-11-04] MEDS: DOCUSATE SODIUM 50 MG/SENNA 8.6 MG TAB PO SCH ×2 (08:37→21:00)
[2017-11-04] MEDS: POTASSIUM CHLOR 20 MEQ PREMIX 100 ML IV SCH ×2 (09:50→11:27)
[2017-11-04 12:00] VITALS: BP 100/55; PULSE 102; RESP 18; TEMP 98.6; O2SAT 100
--- NOTE | 2017-11-04 12:20 | HHI.PR ---
Subjective Remarks Follow-up intractable nausea and vomiting. Patient seen and examined, sitting up in bed comfortably with no acute distress or complaints. Has been at bedside. Patient states she did not sleep well. Denies any further vomiting. Occasional nausea. Patient is tolerating PO intake. Objective Vitals Vital Signs Date Time Temp Pulse Resp B/P (MAP) Pulse Ox O2 Delivery O2 Flow Rate FiO2 11/04/17 08:00 Nasal Cannula 2.00 11/04/17 08:00 98.7 92 18 70/ 100 11/04/17 00:00 97.2 88 16 116/56 (76) 98 11/03/17 23:00 103 11/03/17 20:00 97.0 90 18 118/57 (77) 99 11/03/17 20:00 99 Nasal Cannula 2.00 11/03/17 20:00 103 11/03/17 16:00 98.3 115 18 106/52 (70) 100 I/O 11/03/17 11/03/17 11/03/17 11/04/17 11/04/17 11/04/17 07:00 15:00 23:00 07:00 15:00 23:00 Intake Total 1240 ml 100 ml 200 ml Balance 1240 ml 100 ml 200 ml Intake Oral 240 ml IV Total 1000 ml 100 ml 200 ml # Voids 1 # Bowel Movements 1 Result Diagram: 11/04/17 0543 11/04/17 0543 Imaging Last Impressions Abdomen/Pelvis CT 11/02/172129 Signed Impressions: Service Date/Time: Thursday, November 02, 2017 21:55 - CONCLUSION: 1. Worsening metastatic disease to liver. 2. Metastatic adenopathy in the upper abdomen not present on the prior examination. Marcos Aquino MD Chest X-Ray 11/02/172014 Signed Impressions: Service Date/Time: Thursday, November 02, 2017 20:35 - CONCLUSION: No acute cardiopulmonary disease. Marcos Aquino MD Objective Remarks GENERAL: Well-developed, thin appearing female patient in NAD. SKIN: Warm and dry. No rash. HEENT: Normocephalic. Atraumatic. Pupils equal and round. No scleral icterus. No injection or drainage. No nasal bleeding or discharge. Mucous membranes pink and moist. NECK: Supple. Trachea midline. CARDIOVASCULAR: Regular rate and rhythm. S1, S2 noted. No murmur appreciated. RESPIRATORY: No accessory muscle use. Clear to auscultation. Breath sounds equal bilaterally. GASTROINTESTINAL: Abdomen soft, non-tender, nondistended. Normoactive bowel sounds x4. MUSCULOSKELETAL: No obvious deformities. Extremities without clubbing, cyanosis , or edema. NEUROLOGICAL: Awake and alert. No obvious cranial nerve deficits. Motor grossly within normal limits. 5/5 muscle strength in bilateral upper and lower extremities. Normal speech. PSYCHIATRIC: Appropriate mood and affect; insight and judgment normal. A/P Problem List: (1) Nausea & vomiting ICD Code: R11.2 - Nausea with vomiting, unspecified (2) Dehydration ICD Code: E86.0 - Dehydration (3) Hyponatremia ICD Code: E87.1 - Hypo-osmolality and hyponatremia (4) Leukocytosis ICD Code: D72.829 - Elevated white blood cell count, unspecified (5) Pancreatic cancer ICD Code: C25.9 - Malignant neoplasm of pancreas, unspecified Status: Acute (6) Liver metastases ICD Code: C78.7 - Secondary malignant neoplasm of liver and intrahepatic bile duct Status: Acute (7) Sepsis ICD Code: A41.9 - Sepsis, unspecified organism Assessment and Plan Nausea/vomiting: Improving. Continue Zofran as needed. Hypokalemia, suspect secondary to above: Will replace. Recheck potassium this afternoon. Follow. Metastatic pancreatic head adenocarcinoma: Appreciate oncology recommendations, Dr. Cho is following patient. Patient was scheduled to have a liver biopsy done at [facility] today. Continue pain control. Per oncology, patient is hospice appropriate. Palliative care has seen patient. At this time patient is refusing Hospice care and will continue full code status. Supportive care. Normocytic, normochromic anemia: Likely secondary to dilutional source. Will check stool Hemoccult. Follow. Hypertension: Continue verapamil. Monitor BP trends. Sepsis: Patient presented with fever, leukocytosis, tachycardia. Source presumed to be abdominal. Continue IV fluids. No fever overnight. Leukocytosis improving. Blood cultures growing Escherichia coli. Will add Levaquin, continue Vanco and cefepime. DVT prophylaxis: SCDs, JAYNA hose, subcutaneous heparin. Pratibha Quinonez Nov 04, 2017 12:20
[2017-11-04] MEDS: LEVOFLOXACIN 750 MG PREMIX INJ 150 ML IV SCH (14:41)
[2017-11-04 16:00] VITALS: BP 94/54; PULSE 111; RESP 18; TEMP 99.5; O2SAT 100
[2017-11-04] MEDS ORDERED: POTASSIUM CHLORIDE 10 MEQ CONTROLLED RELEASE TAB PO ONE (17:00)
[2017-11-04 20:00] VITALS: BP 115/71; PULSE 105; PULSE 111; PULSE 98; RESP 18; TEMP 98.8; O2SAT 98
[2017-11-04] MEDS ORDERED: LORazepam 0.5 MG TAB PO PRN (21:30)
[2017-11-04] MEDS: LORazepam 0.5 MG TAB PO PRN (21:54)
[2017-11-05] VITALS (7 sets, daily range): BP systolic 108–136; BP diastolic 56–80; PULSE 90–116; RESP 16–20; TEMP 97–99.9; O2SAT 94–99
[2017-11-05] MEDS: VANCOMYCIN 1 GM/200 ML PREMIX IV SCH (00:23)
[2017-11-05] MEDS: SODIUM CHLOR 0.9% 1000 ML INJ 1,000 ML IV SCH ×3 (00:23→21:01)
[2017-11-05] MEDS ORDERED: PHARMACY ORDERED LAB ONE (00:45)
[2017-11-05 03:41] LABS: CREATININE 0.56 MG/DL (0.50-1.00)
[2017-11-05] MEDS: ONDANSETRON HCL 4 MG/2 ML VIAL IVP PRN (03:55)
[2017-11-05] MEDS: HEPARIN SODIUM - SQ 10,000 UNITS/ML VIAL SQ SCH ×4 (05:42→21:58)
[2017-11-05 06:40] LABS: HEMATOCRIT 25.4 % (35.0-46.0); HEMOGLOBIN 8.4 GM/DL (11.6-15.3); MEAN CELL VOLUME 85.3 FL (80.0-100.0); MEAN CORPUSCULAR HEMOGLOBIN 28.2 PG (27.0-34.0); MEAN CORPUSCULAR HGB CONC 33.1 % (32.0-36.0); MEAN PLATELET VOLUME 7.8 FL (7.0-11.0); PLATELET COUNT 296 TH/MM3 (150-450); RED BLOOD COUNT 2.97 MIL/MM3 (4.00-5.30); RED CELL DISTRIBUTION WIDTH 17.3 % (11.6-17.2); WHITE BLOOD COUNT 14.1 TH/MM3 (4.0-11.0)
[2017-11-05 09:28] LABS: BANDS 7 % (0-6); LYMPHOCYTES 6 % (9-44); METAMYELOCYTES 1 % (0-1); MONOCYTES 4 % (0-8); NEUTROPHIL # MANUAL DIFF 12.7 TH/MM3 (1.8-7.7); POLYS (SEG NEUTROPHILS) 82 % (16-70)
[2017-11-05] MEDS: VERAPAMIL HCL 240 MG SUSTAINED RELEASE TAB PO SCH (09:37)
[2017-11-05] MEDS: DOCUSATE SODIUM 50 MG/SENNA 8.6 MG TAB PO SCH ×2 (09:37→21:00)
[2017-11-05] MEDS: CEFEPIME INJ 1,000 MG in SODIUM CHLORIDE 0.9% INJ 100 ML IV SCH (09:38)
[2017-11-05] MEDS: SODIUM CHLORIDE 0.9% FLUSH 10 ML FLUSH IV FLUSH SCH ×2 (09:38→21:00)
--- NOTE | 2017-11-05 10:00 | HHI.PR ---
Subjective Remarks Follow-up intractable nausea and vomiting and metastatic pancreatic cancer. Patient seen and examined, has been at bedside. Patient is sitting up in bed comfortably in no apparent distress, denies any pain. States she has been grazing eating her food, poor appetite. Denies any nausea or vomiting. She states that she pushed herself yesterday sitting up in the chair for over five hours and now exhausted. Vital signs are stable. TMAX overnight 99.9. ID consulted for bacteremia. [facility] due to presence of bacteremia and continued hospitalization. Objective Vitals Vital Signs Date Time Temp Pulse Resp B/P (MAP) Pulse Ox O2 Delivery O2 Flow Rate FiO2 11/05/17 09:03 97.6 100 18 133/70 (91) 94 11/05/17 04:00 97.3 105 16 136/73 (94) 99 11/05/17 00:00 99.9 116 18 127/73 (91) 95 11/04/17 20:00 98.8 111 18 115/71 (86) 98 11/04/17 20:00 105 11/04/17 19:00 98 Nasal Cannula 2.00 11/04/17 16:00 99.5 111 18 94/54 (67) 100 11/04/17 12:00 98.6 102 18 100/55 (70) 100 I/O 11/04/17 11/04/17 11/04/17 11/05/17 11/05/17 11/05/17 07:00 15:00 23:00 07:00 15:00 23:00 Intake Total 200 ml 300 ml 600 ml 480 ml Balance 200 ml 300 ml 600 ml 480 ml Intake Oral 600 ml 480 ml IV Total 200 ml 300 ml # Voids 2 2 # Bowel Movements 1 Result Diagram: 11/05/17 0545 11/05/17 0030 Imaging Last Impressions Abdomen/Pelvis CT 11/02/172129 Signed Impressions: Service Date/Time: Thursday, November 02, 2017 21:55 - CONCLUSION: 1. Worsening metastatic disease to liver. 2. Metastatic adenopathy in the upper abdomen not present on the prior examination. Marcos Aquino MD Chest X-Ray 11/02/172014 Signed Impressions: Service Date/Time: Thursday, November 02, 2017 20:35 - CONCLUSION: No acute cardiopulmonary disease. Marcos Aquino MD Objective Remarks GENERAL: Well-developed, thin appearing female patient in NAD. SKIN: Warm and dry. No rash. HEENT: Normocephalic. Atraumatic. Pupils equal and round. No scleral icterus. No injection or drainage. No nasal bleeding or discharge. Mucous membranes pink and moist. NECK: Supple. Trachea midline. CARDIOVASCULAR: Regular rate and rhythm. S1, S2 noted. No murmur appreciated. RESPIRATORY: No accessory muscle use. Clear to auscultation. Breath sounds equal bilaterally. GASTROINTESTINAL: Abdomen soft, non-tender, nondistended. Normoactive bowel sounds x4. MUSCULOSKELETAL: No obvious deformities. Extremities without clubbing, cyanosis , or edema. NEUROLOGICAL: Awake and alert. No obvious cranial nerve deficits. Motor grossly within normal limits. 5/5 muscle strength in bilateral upper and lower extremities. Normal speech. PSYCHIATRIC: Appropriate mood and affect; insight and judgment normal. A/P Problem List: (1) Nausea & vomiting ICD Code: R11.2 - Nausea with vomiting, unspecified (2) Dehydration ICD Code: E86.0 - Dehydration (3) Hyponatremia ICD Code: E87.1 - Hypo-osmolality and hyponatremia (4) Leukocytosis ICD Code: D72.829 - Elevated white blood cell count, unspecified (5) Pancreatic cancer ICD Code: C25.9 - Malignant neoplasm of pancreas, unspecified Status: Acute (6) Liver metastases ICD Code: C78.7 - Secondary malignant neoplasm of liver and intrahepatic bile duct Status: Acute (7) Sepsis ICD Code: A41.9 - Sepsis, unspecified organism Assessment and Plan Sepsis with bacteremia suspect secondary to possible biliary stent and possible ascending cholangitis (presented with fever, leukocytosis, tachycardia, positive blood cultures 4 with Escherichia coli). Infectious disease consulted. Appreciate further input and recommendations. Patient has been placed on Levaquin, Vanco and cefepime. Will continue for now. Continue IV fluids Monitor for fevers. Supportive care. Nausea/vomiting: Improved. Continue Zofran as needed. Hypokalemia, suspect secondary to above: Replaced. Follow BMP. Metastatic pancreatic head adenocarcinoma: Appreciate oncology recommendations, Dr. Cho is following patient. Patient was scheduled to have a liver biopsy done at [facility] today. Continue pain control. Per oncology, patient is hospice appropriate. Palliative care has seen patient and following. At this time patient is refusing Hospice care and will continue full code status. Supportive care. Normocytic, normochromic anemia: Likely secondary to dilutional source. Will check stool Hemoccult. Follow. Hypertension: Continue verapamil. Monitor BP trends. DVT prophylaxis: SCDs, JAYNA olsen, subcutaneous heparin. Pratibha Quinonez Nov 05, 2017 10:00
--- NOTE | 2017-11-05 10:52 | HHI.HCPN ---
Reason for visit a. To assist with evaluation and management of symptoms including:nausea and pain. b. To assist medical decision maker(s) with: better understanding of current medical conditions; weighing benefits/burdens of medical treatment options; making medical treatment decisions. Subjective/Interval History Patient seen to follow-up on comfort, goals. Hemodynamically stable. WBC remains elevated 14. H&H low though stable 8.4/ 25.4. Hypokalemia, 3.0 yesterday repletion per medical attending. LFTs trending down. Sparing prns required for nausea, Zofran 1 in the past 24 hours. Tmax 99.2. Blood cultures positive for Escherichia coli, sensitivity pending. ID consulted. Patient currently on Levaquin, cefepime, vancomycin. Met with patient, daughter, at bedside. She endorses feeling okay overall denies dyspnea, denies pain denies current nausea. She had a Zofran dose once overnight but feels fine today. Explore with them current clinical course, recent diagnostics including blood cultures, pending ID consult. Explore with family that this will prolong hospitalization and they were hoping to get patient discharged to follow-up at [facility] for biopsy tomorrow. Advised that in the presence of active infection unlikely that any invasive procedures that were not emergent would be completed. Further advised that patient will be prone to ongoing complications infections etc. related to immune compromised state and general ill, fragile status. All questions answered. They're appreciative ongoing support. Explore recent conversations with palliative regarding possible healthcare surrogate designation and CODE STATUS. Patient indicates they spoke about this yesterday as a family, personal statutes legally decision-making would fall to her , he would make decisions involving all of the patient's family for support, patient is fine with this and does not feel the need to complete written documentation at this time. Regarding CODE STATUS no decisions made at this time so she would be a full code by default. I did gently explore what resuscitation entails and would further complicate her illness state, patient and family indicate they were hoping to get her stable and well enough to follow-up outpatient with [facility] for biopsy. Provided them with my contact information. Advance Directives Living Will: Never completed Health Care Surrogate: Never completed Durable Power of Client Director: Never completed Objective Vital Signs Date Time Temp Pulse Resp B/P (MAP) Pulse Ox O2 Delivery O2 Flow Rate FiO2 11/05/17 09:03 97.6 100 18 133/70 (91) 94 11/05/17 04:00 97.3 105 16 136/73 (94) 99 11/05/17 00:00 99.9 116 18 127/73 (91) 95 11/04/17 20:00 98.8 111 18 115/71 (86) 98 11/04/17 20:00 105 11/04/17 19:00 98 Nasal Cannula 2.00 11/04/17 16:00 99.5 111 18 94/54 (67) 100 11/04/17 12:00 98.6 102 18 100/55 (70) 100 Intake & Output 11/05/17 11/05/17 07:00 19:00 Intake Total 480 ml Balance 480 ml Intake Oral 480 ml # Voids 2 # Bowel Movements 1 Physical Exam CONSTITUTIONAL/GENERAL: This is an adequately nourished patient, in no apparent distress. TUBES/LINES/DRAINS: PIV BUE. Nasal cannula. SKIN: slightly jaundiced. No wounds seen anteriorly. Skin warm/dry. HEAD: Atraumatic. Normocephalic. EYES: Pupils equal and round and reactive. Extraocular motions intact. ENT: Hearing grossly normal. Nose without bleeding or purulent drainage. Throat without visible erythema, exudates, masses, or lesions. NECK: Trachea midline. Supple, nontender. No palpable thyroid enlargement or nodularity. CARDIOVASCULAR: Regular rate and rhythm without murmur. No JVD. Peripheral pulses symmetric. Peripheral edema RESPIRATORY/CHEST: Symmetric, unlabored respirations. On nasal cannula. Clear to auscultation. Breath sounds equal bilaterally. No wheezes, rales, or rhonchi. GASTROINTESTINAL: Abdomen soft, non-tender, nondistended. No palpable masses. No guarding. Bowel sounds present. MUSCULOSKELETAL: Extremities without clubbing, cyanosis, or edema. No joint tenderness or effusion noted. NEUROLOGICAL: Awake and alert, oriented appropriate. Reasonable insight. Motor and sensory grossly within normal limits. Follows commands. Cognitively sharp. Moves all extremities. PSYCHIATRIC: No obvious anxiety/depression. . Diagnostic Tests Laboratory Laboratory Tests Test 11/02/17 20:14 11/02/17 22:22 11/02/17 23:22 11/03/17 06:00 White Blood Count 24.5 TH/MM3 (4.0-11.0) 18.9 TH/MM3 (4.0-11.0) Red Blood Count 4.02 MIL/MM3 (4.00-5.30) 2.99 MIL/MM3 (4.00-5.30) Hemoglobin 11.6 GM/DL (11.6-15.3) 9.1 GM/DL (11.6-15.3) Hematocrit 34.0 % (35.0-46.0) 25.5 % (35.0-46.0) Mean Corpuscular Volume 84.5 FL (80.0-100.0) 85.6 FL (80.0-100.0) Mean Corpuscular Hemoglobin 28.8 PG (27.0-34.0) 30.4 PG (27.0-34.0) Mean Corpuscular Hemoglobin Concent 34.1 % (32.0-36.0) 35.5 % (32.0-36.0) Red Cell Distribution Width 17.2 % (11.6-17.2) 17.4 % (11.6-17.2) Platelet Count 526 TH/MM3 (150-450) 356 TH/MM3 (150-450) Mean Platelet Volume 6.7 FL (7.0-11.0) 6.9 FL (7.0-11.0) Neutrophils (%) (Auto) 95.2 % (16.0-70.0) 93.3 % (16.0-70.0) Lymphocytes (%) (Auto) 1.1 % (9.0-44.0) 2.6 % (9.0-44.0) Monocytes (%) (Auto) 1.2 % (0.0-8.0) 3.7 % (0.0-8.0) Eosinophils (%) (Auto) 0.0 % (0.0-4.0) 0.1 % (0.0-4.0) Basophils (%) (Auto) 2.5 % (0.0-2.0) 0.3 % (0.0-2.0) Neutrophils # (Auto) 23.3 TH/MM3 (1.8-7.7) 17.6 TH/MM3 (1.8-7.7) Lymphocytes # (Auto) 0.3 TH/MM3 (1.0-4.8) 0.5 TH/MM3 (1.0-4.8) Monocytes # (Auto) 0.3 TH/MM3 (0-0.9) 0.7 TH/MM3 (0-0.9) Eosinophils # (Auto) 0.0 TH/MM3 (0-0.4) 0.0 TH/MM3 (0-0.4) Basophils # (Auto) 0.6 TH/MM3 (0-0.2) 0.1 TH/MM3 (0-0.2) CBC Comment AUTO DIFF AUTO DIFF Differential Total Cells Counted 100 100 Neutrophils % (Manual) 82 % (16-70) 76 % (16-70) Band Neutrophils % 17 % (0-6) 20 % (0-6) Monocytes % 1 % (0-8) 1 % (0-8) Neutrophils # (Manual) 24.3 TH/MM3 (1.8-7.7) 18.3 TH/MM3 (1.8-7.7) Differential Comment FINAL DIFF MANUAL FINAL DIFF MANUAL Platelet Estimate HIGH (NORMAL) NORMAL (NORMAL) Platelet Morphology Comment CLUMPED (NORMAL) NORMAL (NORMAL) Red Cell Morphology Comment NORMAL (NORMAL) Prothrombin Time 13.3 SEC (9.8-11.6) Prothromb Time International Ratio 1.3 RATIO Activated Partial Thromboplast Time 25.7 SEC (24.3-30.1) Blood Urea Nitrogen 18 MG/DL (7-18) 13 MG/DL (7-18) Creatinine 0.95 MG/DL (0.50-1.00) 0.51 MG/DL (0.50-1.00) Random Glucose 132 MG/DL (74-106) 100 MG/DL (74-106) Total Protein 7.8 GM/DL (6.4-8.2) 5.9 GM/DL (6.4-8.2) Albumin 2.7 GM/DL (3.4-5.0) 2.1 GM/DL (3.4-5.0) Calcium Level 8.6 MG/DL (8.5-10.1) 8.0 MG/DL (8.5-10.1) Magnesium Level 1.8 MG/DL (1.5-2.5) Alkaline Phosphatase 1297 U/L (45-117) 953 U/L (45-117) Aspartate Amino Transf (AST/SGOT) 311 U/L (15-37) 208 U/L (15-37) Alanine Aminotransferase (ALT/SGPT) 139 U/L (10-53) 110 U/L (10-53) Total Bilirubin 5.0 MG/DL (0.2-1.0) 4.8 MG/DL (0.2-1.0) Sodium Level 129 MEQ/L (136-145) 134 MEQ/L (136-145) Potassium Level 3.2 MEQ/L (3.5-5.1) 3.5 MEQ/L (3.5-5.1) Chloride Level 95 MEQ/L (98-107) 101 MEQ/L (98-107) Carbon Dioxide Level 21.3 MEQ/L (21.0-32.0) 23.8 MEQ/L (21.0-32.0) Anion Gap 13 MEQ/L (5-15) 9 MEQ/L (5-15) Estimat Glomerular Filtration Rate 57 ML/MIN (>89) 118 ML/MIN (>89) Total Creatine Kinase 46 U/L (26-192) Troponin I LESS THAN 0.02 NG/ML Lipase 131 U/L (73-393) 104 U/L (73-393) Lactic Acid Level 1.8 mmol/L (0.4-2.0) Lymphocytes % 2 % (9-44) Metamyelocytes 1 % (0-1) Ovalocytes 1+ (NORMAL) Test 11/03/17 20:00 11/04/17 05:43 11/04/17 15:45 11/05/17 00:30 Urine Color YELLOW (YELLW/STRAW) Urine Turbidity CLEAR (CLEAR) Urine pH 6.0 (5.0-8.5) Urine Specific [place] 1.022 (1.002-1.035) Urine Protein TRACE mg/dL (NEG-TRACE) Urine Glucose (UA) NEG mg/dL (NEG) Urine Ketones NEG mg/dL (NEG) Urine Occult Blood MOD (NEG) Urine Nitrite NEG (NEG) Urine Bilirubin MOD (NEG) Urine Leukocyte Esterase TRACE (NEG) Urine RBC 0-3 /hpf (0-3) Urine WBC 0-2 /hpf (0-5) Urine Squamous Epithelial Cells 0-5 /hpf (0-5) Urine Amorphous Sediment FEW Urine Bacteria FEW /hpf (NONE) Urine Hyaline Casts 0-2 /lpf (RARE) Urine Granular Casts 3-5 /lpf (NONE) Urine White Blood Cell Casts 0-2 /lpf (NONE) Microscopic Urinalysis Comment CULT NOT INDICATED White Blood Count 16.8 TH/MM3 (4.0-11.0) Red Blood Count 2.88 MIL/MM3 (4.00-5.30) Hemoglobin 8.8 GM/DL (11.6-15.3) Hematocrit 24.8 % (35.0-46.0) Mean Corpuscular Volume 86.3 FL (80.0-100.0) Mean Corpuscular Hemoglobin 30.7 PG (27.0-34.0) Mean Corpuscular Hemoglobin Concent 35.6 % (32.0-36.0) Red Cell Distribution Width 18.0 % (11.6-17.2) Platelet Count 306 TH/MM3 (150-450) Mean Platelet Volume 7.0 FL (7.0-11.0) CBC Comment AUTO DIFF Differential Total Cells Counted 100 Neutrophils % (Manual) 77 % (16-70) Band Neutrophils % 17 % (0-6) Lymphocytes % 4 % (9-44) Monocytes % 2 % (0-8) Neutrophils # (Manual) 15.8 TH/MM3 (1.8-7.7) Differential Comment FINAL DIFF MANUAL Platelet Estimate NORMAL (NORMAL) Platelet Morphology Comment NORMAL (NORMAL) Ovalocytes 1+ (NORMAL) Rouleau PRESENT (NORMAL) Blood Urea Nitrogen 14 MG/DL (7-18) Creatinine 0.48 MG/DL (0.50-1.00) 0.56 MG/DL (0.50-1.00) Random Glucose 86 MG/DL (74-106) Total Protein 5.8 GM/DL (6.4-8.2) Albumin 1.9 GM/DL (3.4-5.0) Calcium Level 7.3 MG/DL (8.5-10.1) Alkaline Phosphatase 728 U/L (45-117) Aspartate Amino Transf (AST/SGOT) 140 U/L (15-37) Alanine Aminotransferase (ALT/SGPT) 87 U/L (10-53) Total Bilirubin 4.6 MG/DL (0.2-1.0) Sodium Level 135 MEQ/L (136-145) Potassium Level 3.0 MEQ/L (3.5-5.1) 3.4 MEQ/L (3.5-5.1) Chloride Level 103 MEQ/L (98-107) Carbon Dioxide Level 24.8 MEQ/L (21.0-32.0) Anion Gap 7 MEQ/L (5-15) Estimat Glomerular Filtration Rate 126 ML/MIN (>89) 106 ML/MIN (>89) Protein Corrected Calcium 8.0 MG/DL (8.5-10.1) Vancomycin Level Trough 5.9 MCG/ML (5.0-10.0) Test 11/05/17 05:45 White Blood Count 14.1 TH/MM3 (4.0-11.0) Red Blood Count 2.97 MIL/MM3 (4.00-5.30) Hemoglobin 8.4 GM/DL (11.6-15.3) Hematocrit 25.4 % (35.0-46.0) Mean Corpuscular Volume 85.3 FL (80.0-100.0) Mean Corpuscular Hemoglobin 28.2 PG (27.0-34.0) Mean Corpuscular Hemoglobin Concent 33.1 % (32.0-36.0) Red Cell Distribution Width 17.3 % (11.6-17.2) Platelet Count 296 TH/MM3 (150-450) Mean Platelet Volume 7.8 FL (7.0-11.0) CBC Comment AUTO DIFF Differential Total Cells Counted 100 Neutrophils % (Manual) 82 % (16-70) Band Neutrophils % 7 % (0-6) Lymphocytes % 6 % (9-44) Monocytes % 4 % (0-8) Neutrophils # (Manual) 12.7 TH/MM3 (1.8-7.7) Metamyelocytes 1 % (0-1) Differential Comment FINAL DIFF MANUAL Result Diagram: 11/05/17 0545 11/05/17 0030 Microbiology Microbiology Date/Time Source Procedure Growth Status 11/02/17 20:19 Blood Peripheral Aerobic Blood Culture - Final Escherichia Coli Complete 11/02/17 20:19 Anaerobic Blood Culture - Final Escherichia Coli Complete 11/02/17 20:14 Blood Peripheral Aerobic Blood Culture - Final Escherichia Coli Complete 11/02/17 20:14 Anaerobic Blood Culture - Final Escherichia Coli Complete 11/04/17 23:30 Stool Stool Stool Occult Blood (FELICIA) Pending Received 11/03/17 01:50 Nasal Aspirate Influenza Types A,B Antigen (FELICIA) - Final NEGATIVE FOR FLU A AND B ANTIGEN.... Complete Imaging Last Impressions Abdomen/Pelvis CT 11/02/172129 Signed Impressions: Service Date/Time: Thursday, November 02, 2017 21:55 - CONCLUSION: 1. Worsening metastatic disease to liver. 2. Metastatic adenopathy in the upper abdomen not present on the prior examination. Marcos Aquino MD Chest X-Ray 11/02/172014 Signed Impressions: Service Date/Time: Thursday, November 02, 2017 20:35 - CONCLUSION: No acute cardiopulmonary disease. Marcos Aquino MD Assessment and Plan Disease Oriented Problem List: (1) Pancreatic cancer (2) Leukocytosis (3) Liver metastases (4) Hyponatremia Symptom Scale: (1) Pain 0-10 Scale: Unable to quantify (say it is not pain, but more pressure. ) (2) Nausea 0-10 Scale: Unable to quantify Pertinent Non-Medical Issues Psychosocial: Patient is with 5 children Spiritual: Legal: Pt is contemplating who to designate as health care surrogate. For now proxy is pt's Ethical issues impacting care: none. Important Contacts Naveen Long (Spouse) [phone] Gabbi Cardona (daughter) [phone] and [phone] Prognosis Prognosis is poor and oncology feels patient is hospice appropriate. Code Status: Full Code Plan == capacity- pt has capacity to make medical decisions.She is thinking about HCS designation. She has been provided with documents indicates that she wants to complete them. She has not elected to designate anyone at this time. Per [place] statutes her would be appropriate legal proxy should she become incapacitated, patient indicates she is fine with him serving as decision maker. == Code: Full code for now. (contemplating DNR, palliative has discussed, still full code) == symptoms: nausea- 2nd to cancer burden, she did say smells triggers it. She has prn zofran and prn ativan for associated anxiety-- she indicates sx are infrequent. Sparing requirements 1 x per day at most. Pain - denies pain, just more abdominal discomfort. using pain meds very sparingly, continue prns, monitor effectiveness/requirements == goals: * Wants to continue antibiotics and ongoing aggressive treatments for the possibility her infection can clear and she can continue with follow-up at [facility] for biopsy. And family not ready to transition to comfort. ==Palliative care will continue to follow during hospital course as condition evolves, to assist patient/decision-maker with understanding of medical conditions, weighing benefits/burdens of treatment options, for clarification of goals of treatment. Additionally will assist with any symptoms of palliative concern Attestation To help prompt me to consider important information that might be impacting today's encounter and assessment, information from prior notes written by myself or my colleagues may have been "brought forward" into today's note. My signature on this note, however, is an attestation that I personally performed the exam, history, and/or decision-making noted today, and, unless otherwise indicated, the interactions with patient, family, and staff as well as the review of records all occurred today. I also attest that the listed assessment and stated plan reflect my best clinical judgment today based on the combination of historical information, prior notes, and today's exam/ interactions. When time spent is documented, it refers only to time spent today by the signer, or if indicated, combined time spent today by collaborating physician/nurse practitioner. Vijaya Pack Nov 05, 2017 10:52
[2017-11-05] MEDS ORDERED: VANCOMYCIN 1 GM/200 ML PREMIX IV SCH (12:00)
[2017-11-05] MEDS: LEVOFLOXACIN 750 MG PREMIX INJ 150 ML IV SCH (14:00)
--- NOTE | 2017-11-05 17:22 | PD.CONS ---
History of Present Illness Service ID CONSULT DR BA Consult Requested By ARMANDO MARES Reason for Consult ECOLI BACTEREMIA Primary Care Physician Aamir Conley Do, MD Diagnoses: (1) Abdominal pain (2) Dehydration (3) Nausea & vomiting (4) Fever (5) Pancreatic cancer (6) Liver metastases History of Present Illness 77 YR FEMALE ADMITTED WITH NAUSEA / VOMITING / WEAKNESS ONSET 5-6 DAYS AGO. SHE HAS A HISTORY OF METASTATIC PANCREATIC CANCER. SHE HAS BEEN ON 3 DIFFERENT PALLIATIVE CARE RX OVER LAST 14M. SHE WAS RECENTLY GIVEN HER LAST RX [id number]. SHE IS FOLLOWED BY [facility]. SHE WAS RECENTLY REFERRED TO [facility] FOR POSSIBLE EXPERIMENTAL TREATMENT OPTIONS. SHE WAS DUE TO HAVE LIVER BIOPSY AT [facility] TODAY. HOWEVER SHE STATES SHE DEVELOPED FEVER/ CHILLS RAPIDLY WITH WEAKNESS FRIDAY. SHE WAS BROUGHT IN BY [facility]. AND FOUND TO HAVE ECOLI BACTEREMIA. ID CONSULTED. SHE IS NO LONGER HAVING ABDOMINAL PAIN. SHE HAS A RIGHT INFUSA PORT NOT ACCESSED SINCE 09/19. SHE HAD A CT ABD WHICH DID SHOW METASTATIC DISEASE TO THE LIVER. NO ABSCESSES NOTED. Review of Systems Constitutional: COMPLAINS OF: Fatigue, Fever Endocrine: DENIES: Heat/cold intolerance Eyes: DENIES: Eye inflammation Ears, nose, mouth, throat: DENIES: Vertigo Respiratory: DENIES: Wheezing Gastrointestinal: COMPLAINS OF: Nausea, Vomiting, DENIES: Bloody stools, Constipation Genitourinary: DENIES: Dyspareunia Musculoskeletal: DENIES: Joint Swelling Integumentary: DENIES: Nail changes Hematologic/lymphatic: COMPLAINS OF: Lymphadenopathy Immunologic/allergic: DENIES: Urticaria Neurologic: DENIES: Headache Past Family Social History Allergies: Coded Allergies: No Known Allergies (Unverified Allergy, Unknown, 11/02/17) Past Medical History Past Medical History Pancreatic cancer Hypertension Arthritis Past Surgical History Past Surgical History Cholecystectomy Bilateral cataract surgery Pancreatic stent Jocbok-[id number]-Hwca placement Tonsillectomy Reported Medications Reported Medications [trandolapril] 1 Tab PO DAILY Cromolyn Opth Drops 4% Soln 1 Drop EACH EYE Q6H Alprazolam 0.25 Mg Tab 0.25 Mg PO Q6H PRN Verapamil SR (Verapamil HCl) 240 Mg Tab 240 Mg PO DAILY Family History Allergies: Coded Allergies: No Known Allergies (Unverified Allergy, Unknown, 11/02/17) Family History Cancer FATHER AT 81 HE DID HAVE LUNG CA MOTHER AT 91 Social History NO ETOH NO TOBACCO RETIRED SALES Physical Exam Vital Signs Vital Signs Date Time Temp Pulse Resp B/P (MAP) Pulse Ox O2 Delivery O2 Flow Rate FiO2 11/05/17 13:25 97.0 90 16 124/58 (80) 99 11/05/17 09:03 97.6 100 18 133/70 (91) 94 11/05/17 04:00 97.3 105 16 136/73 (94) 99 11/05/17 00:00 99.9 116 18 127/73 (91) 95 11/04/17 20:00 98.8 111 18 115/71 (86) 98 11/04/17 20:00 105 11/04/17 19:00 98 Nasal Cannula 2.00 Physical Exam GENERAL: This is a chronically ill patient, in no apparent distress. SKIN: No rashes, ecchymoses or lesions. Cool and dry. HEAD: Atraumatic. Normocephalic. No temporal or scalp tenderness. EYES: Pupils equal round and reactive. Extraocular motions intact. No scleral icterus. No injection or drainage. ENT: Nose without bleeding, purulent drainage or septal hematoma. Throat without erythema, tonsillar hypertrophy or exudate. Uvula midline. Airway patent. NECK: Trachea midline. No JVD or lymphadenopathy. Supple, nontender, no meningeal signs. CARDIOVASCULAR: Regular rate and rhythm without murmurs, gallops, or rubs. RESPIRATORY: Clear to auscultation. Breath sounds equal bilaterally. No wheezes , rales, or rhonchi. right chest infusaport no redness, or swelling no pain GASTROINTESTINAL: Abdomen soft, non-tender, nondistended. No hepato-splenomegaly , or palpable masses. No guarding. MUSCULOSKELETAL: Extremities without clubbing, cyanosis, or edema. No joint tenderness, effusion, or edema noted. No calf tenderness. Negative Homans sign bilaterally. NEUROLOGICAL: Awake and alert. Cranial nerves II through XII intact. Motor and sensory grossly within normal limits. Five out of 5 muscle strength in all muscle groups. Normal speech. Laboratory Laboratory Tests Test 11/05/17 00:30 11/05/17 05:45 Creatinine 0.56 Estimat Glomerular Filtration Rate 106 Vancomycin Level Trough 5.9 White Blood Count 14.1 Red Blood Count 2.97 Hemoglobin 8.4 Hematocrit 25.4 Mean Corpuscular Volume 85.3 Mean Corpuscular Hemoglobin 28.2 Mean Corpuscular Hemoglobin Concent 33.1 Red Cell Distribution Width 17.3 Platelet Count 296 Mean Platelet Volume 7.8 CBC Comment AUTO DIFF Differential Total Cells Counted 100 Neutrophils % (Manual) 82 Band Neutrophils % 7 Lymphocytes % 6 Monocytes % 4 Neutrophils # (Manual) 12.7 Metamyelocytes 1 Differential Comment FINAL DIFF MANUAL Date/Time Source Procedure Growth Status 11/02/17 20:19 Blood Peripheral Aerobic Blood Culture - Final Escherichia Coli Complete 11/02/17 20:19 Anaerobic Blood Culture - Final Escherichia Coli Complete 11/04/17 23:30 Stool Stool Stool Occult Blood (FELICIA) - Final HEMOCCULT NEGATIVE Complete 11/03/17 01:50 Nasal Aspirate Influenza Types A,B Antigen (FELICIA) - Final NEGATIVE FOR FLU A AND B ANTIGEN.... Complete Result Diagram: 11/05/17 0545 11/05/17 0030 Assessment and Plan Problem List: (1) Bacteremia due to Escherichia coli ICD Codes: R78.81 - Bacteremia Plan: stop cefepime/levaquin/vancomycin add rocephin 2g iv q24h monitor cultures ? source of abdomen ua was normal repeat bc and assure negative will fu d/w dr ba (2) Nausea & vomiting ICD Codes: R11.2 - Nausea with vomiting, unspecified (3) Sepsis ICD Codes: A41.9 - Sepsis, unspecified organism (4) Abdominal pain ICD Codes: R10.9 - Unspecified abdominal pain Status: Acute (5) Liver metastases ICD Codes: C78.7 - Secondary malignant neoplasm of liver and intrahepatic bile duct Status: Acute (6) Pancreatic cancer ICD Codes: C25.9 - Malignant neoplasm of pancreas, unspecified Status: Acute Patti Cannon Nov 05, 2017 17:22
[2017-11-05] MEDS: cefTRIAXone 1,000 MG/NS 100 ML IV SCH ×2 (21:56)
[2017-11-05] MEDS: LORazepam 0.5 MG TAB PO PRN (21:58)
[2017-11-06] VITALS: BP 118/58; PULSE 95; RESP 20; TEMP 98.9; O2SAT 99
[2017-11-06] MEDS: SODIUM CHLOR 0.9% 1000 ML INJ 1,000 ML IV SCH ×3 (03:16→22:02)
[2017-11-06 04:00] VITALS: BP 126/64; PULSE 98; RESP 22; TEMP 96.2; O2SAT 98
[2017-11-06] MEDS: HEPARIN SODIUM - SQ 10,000 UNITS/ML VIAL SQ SCH ×3 (06:42→22:01)
[2017-11-06 07:41] LABS: ALBUMIN 1.6 GM/DL (3.4-5.0); BICARBONATE 23.1 MEQ/L (21.0-32.0); CALCIUM 7.3 MG/DL (8.5-10.1); CALCIUM-PROTEIN CORRECTED 8.5 MG/DL (8.5-10.1); CREATININE 0.44 MG/DL (0.50-1.00); TOTAL BILIRUBIN ADULT 8.5 MG/DL (0.2-1.0)
--- NOTE | 2017-11-06 08:50 | HHI.IDPN ---
Subjective Subjective Remarks No fevers Weak- no appetite Some nausea Antibiotics Ceftriaxone Lines Port Past Medical History Pancreatic cancer Hypertension Arthritis Past Surgical History Cholecystectomy Bilateral cataract surgery Pancreatic stent Tpkxbw-j-Hijd placement Tonsillectomy Allergies: Coded Allergies: No Known Allergies (Unverified Allergy, Unknown, 11/02/17) Review of Systems Constitutional Constitutional: Fatigue, Weakness Objective . Vital Signs Date Time Temp Pulse Resp B/P (MAP) Pulse Ox O2 Delivery O2 Flow Rate FiO2 11/06/17 04:00 96.2 98 22 126/64 (84) 98 11/06/17 00:00 98.9 95 20 118/58 (78) 99 11/05/17 20:00 98 11/05/17 20:00 99.1 97 20 108/56 (73) 99 11/05/17 19:12 99.2 97 16 126/80 (95) 99 11/05/17 19:00 99 Room Air 11/05/17 13:25 97.0 90 16 124/58 (80) 99 11/05/17 09:03 97.6 100 18 133/70 (91) 94 . Laboratory Tests Test 11/05/17 05:45 White Blood Count 14.1 TH/MM3 Red Blood Count 2.97 MIL/MM3 Hemoglobin 8.4 GM/DL Hematocrit 25.4 % Mean Corpuscular Volume 85.3 FL Mean Corpuscular Hemoglobin 28.2 PG Mean Corpuscular Hemoglobin Concent 33.1 % Red Cell Distribution Width 17.3 % Platelet Count 296 TH/MM3 Mean Platelet Volume 7.8 FL CBC Comment AUTO DIFF Differential Total Cells Counted 100 Neutrophils % (Manual) 82 % Band Neutrophils % 7 % Lymphocytes % 6 % Monocytes % 4 % Neutrophils # (Manual) 12.7 TH/MM3 Metamyelocytes 1 % Differential Comment FINAL DIFF MANUAL Laboratory Tests Test 11/04/17 15:45 11/05/17 00:30 11/06/17 05:50 Potassium Level 3.4 MEQ/L 2.8 MEQ/L Creatinine 0.56 MG/DL 0.44 MG/DL Estimat Glomerular Filtration Rate 106 ML/MIN 139 ML/MIN Blood Urea Nitrogen 10 MG/DL Random Glucose 82 MG/DL Total Protein 5.0 GM/DL Albumin 1.6 GM/DL Calcium Level 7.3 MG/DL Alkaline Phosphatase 639 U/L Aspartate Amino Transf (AST/SGOT) 88 U/L Alanine Aminotransferase (ALT/SGPT) 50 U/L Total Bilirubin 8.5 MG/DL Sodium Level 135 MEQ/L Chloride Level 104 MEQ/L Carbon Dioxide Level 23.1 MEQ/L Anion Gap 8 MEQ/L Protein Corrected Calcium 8.5 MG/DL Microbiology Date/Time Source Procedure Growth Status 11/05/17 18:25 Blood Arterial Line Aerobic Blood Culture Pending Received 11/05/17 18:25 Blood Arterial Line Anaerobic Blood Culture Pending Received 11/05/17 18:15 Blood Arterial Line Aerobic Blood Culture Pending Received 11/05/17 18:15 Blood Arterial Line Anaerobic Blood Culture Pending Received 11/04/17 23:30 Stool Stool Stool Occult Blood (FELICIA) - Final HEMOCCULT NEGATIVE Complete Physical Exam GENERAL: This is a chronically ill cachetic patient SKIN: No rashes, ecchymoses or lesions. Cool and dry. HEAD: Atraumatic. Normocephalic. No temporal or scalp tenderness. EYES: Pupils equal round and reactive. Extraocular motions intact. No scleral icterus. No injection or drainage. ENT: Nose without bleeding, purulent drainage or septal hematoma. Throat without erythema, tonsillar hypertrophy or exudate. Uvula midline. Airway patent. NECK: Trachea midline. No JVD or lymphadenopathy. Supple, nontender, no meningeal signs. CARDIOVASCULAR: Regular rate and rhythm without murmurs, gallops, or rubs. RESPIRATORY: Clear to auscultation. Breath sounds equal bilaterally. No wheezes , rales, or rhonchi. right chest infusaport no redness, or swelling no pain GASTROINTESTINAL: Abdomen soft, non-tender, nondistended.Hepatomegaly MUSCULOSKELETAL: Extremities without clubbing, cyanosis, or edema. No joint tenderness, effusion, or edema noted. No calf tenderness. Negative Homans sign bilaterally. NEUROLOGICAL: Awake and alert. Cranial nerves II through XII intact. Motor and sensory grossly within normal limits. Five out of 5 muscle strength in all muscle groups. Normal speech. Assessment & Plan Diagnosis: (1) Bacteremia due to Escherichia coli ICD Codes: R78.81 - Bacteremia Status: Acute Plan: Likely secondary to cholangitis Continue IV Ceftriaxone Follow repeat blood cultures to make sure she is clearing bacteremia (2) Sepsis ICD Codes: A41.9 - Sepsis, unspecified organism (3) Liver metastases ICD Codes: C78.7 - Secondary malignant neoplasm of liver and intrahepatic bile duct Status: Chronic (4) Pancreatic cancer ICD Codes: C25.9 - Malignant neoplasm of pancreas, unspecified Status: Chronic Problem Qualifiers (1) Sepsis: Qualified Codes: A41.51 - Sepsis due to Escherichia coli [e. coli] Sheridan Collins MD Nov 06, 2017 08:50
[2017-11-06] MEDS: SODIUM CHLORIDE 0.9% FLUSH 10 ML FLUSH IV FLUSH SCH ×2 (09:00→21:00)
[2017-11-06] MEDS: DOCUSATE SODIUM 50 MG/SENNA 8.6 MG TAB PO SCH ×2 (09:00→21:00)
[2017-11-06 09:10] VITALS: BP 128/59; PULSE 93; RESP 16; TEMP 96.1; O2SAT 98
[2017-11-06 09:27] LABS: HEMATOCRIT 25.5 % (35.0-46.0); HEMOGLOBIN 8.5 GM/DL (11.6-15.3); MEAN CELL VOLUME 84.8 FL (80.0-100.0); MEAN CORPUSCULAR HEMOGLOBIN 28.2 PG (27.0-34.0); MEAN CORPUSCULAR HGB CONC 33.3 % (32.0-36.0); MEAN PLATELET VOLUME 7.5 FL (7.0-11.0); PLATELET COUNT 306 TH/MM3 (150-450); RED CELL DISTRIBUTION WIDTH 17.3 % (11.6-17.2)
[2017-11-06] MEDS: MEGESTROL ACETATE SUSP 400 MG/10 ML CUP PO SCH (10:00)
[2017-11-06 10:03] LABS: BANDS 3 % (0-6); LYMPHOCYTES 6 % (9-44); MONOCYTES 3 % (0-8); NEUTROPHIL # MANUAL DIFF 12.7 TH/MM3 (1.8-7.7); POLYS (SEG NEUTROPHILS) 88 % (16-70)
--- NOTE | 2017-11-06 10:22 | HHI.PR ---
Subjective Remarks Follow-up intractable nausea and vomiting and metastatic pancreatic cancer. Patient seen and examined, and daughter at bedside. Patient updated about positive blood cultures. Infectious disease is following. Patient has been afebrile overnight. Started on Rocephin IV. Patient has been participating in PT. States she's feeling well today. Denies any chest pain or overall pain. Poor appetite, Megace started. Objective Vitals Vital Signs Date Time Temp Pulse Resp B/P (MAP) Pulse Ox O2 Delivery O2 Flow Rate FiO2 11/06/17 09:10 96.1 93 16 128/59 (82) 98 11/06/17 04:00 96.2 98 22 126/64 (84) 98 11/06/17 00:00 98.9 95 20 118/58 (78) 99 11/05/17 20:00 98 11/05/17 20:00 99.1 97 20 108/56 (73) 99 11/05/17 19:12 99.2 97 16 126/80 (95) 99 11/05/17 19:00 99 Room Air 11/05/17 13:25 97.0 90 16 124/58 (80) 99 I/O 11/05/17 11/05/17 11/05/17 11/06/17 11/06/17 11/06/17 07:00 15:00 23:00 07:00 15:00 23:00 Intake Total 480 ml 800 ml 1240 ml Balance 480 ml 800 ml 1240 ml Intake Oral 480 ml 800 ml 240 ml IV Total 1000 ml # Voids 2 3 2 # Bowel Movements 1 0 0 Result Diagram: 11/06/17 0905 11/06/17 0550 Imaging Last Impressions Abdomen/Pelvis CT 11/02/172129 Signed Impressions: Service Date/Time: Thursday, November 02, 2017 21:55 - CONCLUSION: 1. Worsening metastatic disease to liver. 2. Metastatic adenopathy in the upper abdomen not present on the prior examination. Marcos Aquino MD Chest X-Ray 11/02/172014 Signed Impressions: Service Date/Time: Thursday, November 02, 2017 20:35 - CONCLUSION: No acute cardiopulmonary disease. Marcos Aquino MD Objective Remarks GENERAL: Well-developed, thin appearing female patient in NAD. SKIN: Warm and dry. No rash. HEENT: Normocephalic. Atraumatic. Pupils equal and round. No scleral icterus. No injection or drainage. No nasal bleeding or discharge. Mucous membranes pink and moist. NECK: Supple. Trachea midline. CARDIOVASCULAR: Regular rate and rhythm. S1, S2 noted. No murmur appreciated. RESPIRATORY: No accessory muscle use. Clear to auscultation. Breath sounds equal bilaterally. GASTROINTESTINAL: Abdomen soft, non-tender, nondistended. Normoactive bowel sounds x4. MUSCULOSKELETAL: No obvious deformities. Extremities without clubbing, cyanosis , or edema. NEUROLOGICAL: Awake and alert. No obvious cranial nerve deficits. Motor grossly within normal limits. 5/5 muscle strength in bilateral upper and lower extremities. Normal speech. PSYCHIATRIC: Appropriate mood and affect; insight and judgment normal. A/P Problem List: (1) Nausea & vomiting ICD Code: R11.2 - Nausea with vomiting, unspecified (2) Dehydration ICD Code: E86.0 - Dehydration (3) Hyponatremia ICD Code: E87.1 - Hypo-osmolality and hyponatremia (4) Leukocytosis ICD Code: D72.829 - Elevated white blood cell count, unspecified (5) Pancreatic cancer ICD Code: C25.9 - Malignant neoplasm of pancreas, unspecified Status: Chronic (6) Liver metastases ICD Code: C78.7 - Secondary malignant neoplasm of liver and intrahepatic bile duct Status: Chronic (7) Sepsis ICD Code: A41.9 - Sepsis, unspecified organism Assessment and Plan Sepsis with bacteremia suspect secondary to possible biliary stent and possible ascending cholangitis (presented with fever, leukocytosis, tachycardia, positive blood cultures 4 with Escherichia coli). Infectious disease consulted. Appreciate further input and recommendations. Patient has been placed on Levaquin, Vanco and cefepime. Will continue for now. Continue IV fluids. Monitor for fevers. Supportive care. Malnutrition, mild: Started on Megace. Encouraged PO intake. Continue to monitor. Nausea/vomiting: Improved. Continue Zofran as needed. Hypokalemia, suspect secondary to above: Replaced. Follow BMP. Metastatic pancreatic head adenocarcinoma: Appreciate oncology recommendations, Dr. Cho is following patient. Patient was scheduled to have a liver biopsy done at [facility] today. Continue pain control. Per oncology, patient is hospice appropriate. Palliative care has seen patient and following. At this time patient is refusing Hospice care and will continue full code status. Supportive care. Normocytic, normochromic anemia: Likely secondary to dilutional source. Will check stool Hemoccult. Follow. Hypertension: Continue verapamil. Monitor BP trends. DVT prophylaxis: SCDs, JAYNA hose, subcutaneous heparin. Problem Qualifiers (1) Sepsis: Qualified Codes: A41.51 - Sepsis due to Escherichia coli [e. coli] Pratibha Quinonez Nov 06, 2017 10:22
[2017-11-06] MEDS: LACTOBACILLUS ACIDOPHILUS TAB PO SCH ×2 (11:19→22:01)
[2017-11-06] MEDS: LORazepam 0.5 MG TAB PO PRN ×2 (11:19→22:01)
[2017-11-06] MEDS: VERAPAMIL HCL 240 MG SUSTAINED RELEASE TAB PO SCH (11:19)
[2017-11-06] MEDS: ONDANSETRON HCL 4 MG/2 ML VIAL IVP PRN (11:20)
[2017-11-06] MEDS ORDERED: POTASSIUM CHLORIDE 10 MEQ CONTROLLED RELEASE TAB PO ONE (13:00)
[2017-11-06 13:43] VITALS: BP 135/67; PULSE 95; RESP 18; TEMP 96.7; O2SAT 97
[2017-11-06] MEDS: POTASSIUM CHLOR 20 MEQ PREMIX 100 ML IV SCH ×2 (15:00→16:41)
[2017-11-06 18:12] LABS: MAGNESIUM 1.6 MG/DL (1.5-2.5)
[2017-11-06 18:51] VITALS: BP 135/67; PULSE 95; RESP 18; TEMP 96.7; O2SAT 97
[2017-11-06 20:00] VITALS: BP 124/58; PULSE 100; PULSE 92; RESP 16; TEMP 98.5; O2SAT 98
[2017-11-06] MEDS: cefTRIAXone 1,000 MG/NS 100 ML IV SCH ×2 (22:02)
[2017-11-06] MEDS ORDERED: PHARMACY ORDERED LAB ONE (23:45)
[2017-11-07] VITALS: BP 129/61; PULSE 90; RESP 16; TEMP 97.2; O2SAT 98
[2017-11-07 04:00] VITALS: BP 143/74; PULSE 106; RESP 16; TEMP 97.4; O2SAT 96
[2017-11-07] MEDS: HEPARIN SODIUM - SQ 10,000 UNITS/ML VIAL SQ SCH ×3 (06:00→20:37)
[2017-11-07 06:17] LABS: ALBUMIN 1.5 GM/DL (3.4-5.0); BICARBONATE 25.6 MEQ/L (21.0-32.0); CREATININE 0.37 MG/DL (0.50-1.00)
[2017-11-07 06:21] LABS: CALCIUM-PROTEIN CORRECTED 8.2 MG/DL (8.5-10.1); TOTAL BILIRUBIN ADULT 9.8 MG/DL (0.2-1.0); TOTAL PROTEIN 4.9 GM/DL (6.4-8.2)
[2017-11-07] MEDS: POTASSIUM CHLOR 20 MEQ PREMIX 100 ML IV SCH ×2 (07:00→08:45)
--- NOTE | 2017-11-07 07:46 | HHI.PR ---
Subjective Remarks Follow-up intractable nausea and vomiting and metastatic pancreatic cancer. Patient seen and examined, lying in bed sleeping. Awakens to voice. Denies any acute events overnight. Denies any pain. No continued nausea or vomiting. Eight somewhat more yesterday. On Megace. ID is following patient continued on IV Rocephin. Continue PT. Vital signs are stable. Afebrile. Objective Vitals Vital Signs Date Time Temp Pulse Resp B/P (MAP) Pulse Ox O2 Delivery O2 Flow Rate FiO2 11/07/17 04:00 97.4 106 16 143/74 (97) 96 11/07/17 00:00 97.2 90 16 129/61 (83) 98 11/06/17 20:00 100 11/06/17 20:00 98.5 92 16 124/58 (80) 98 11/06/17 19:00 98 Nasal Cannula 2.00 11/06/17 18:51 96.7 95 18 135/67 (89) 97 11/06/17 14:01 Room Air 2.00 11/06/17 13:43 96.7 95 18 135/67 (89) 97 11/06/17 09:10 96.1 93 16 128/59 (82) 98 I/O 11/06/17 11/06/17 11/06/17 11/07/17 11/07/17 11/07/17 07:00 15:00 23:00 07:00 15:00 23:00 Intake Total 1240 ml 900 ml 540 ml Output Total 900 ml Balance 1240 ml 900 ml -360 ml Intake Oral 240 ml 900 ml 540 ml IV Total 1000 ml Output Urine Total 900 ml # Voids 2 3 # Bowel Movements 0 1 0 Result Diagram: 11/06/17 0905 11/07/17 0500 Imaging Last Impressions Abdomen/Pelvis CT 11/02/172129 Signed Impressions: Service Date/Time: Thursday, November 02, 2017 21:55 - CONCLUSION: 1. Worsening metastatic disease to liver. 2. Metastatic adenopathy in the upper abdomen not present on the prior examination. Marcos Aquino MD Chest X-Ray 11/02/172014 Signed Impressions: Service Date/Time: Thursday, November 02, 2017 20:35 - CONCLUSION: No acute cardiopulmonary disease. Marcos Aquino MD Objective Remarks GENERAL: Well-developed, thin appearing female patient in NAD. SKIN: Warm and dry. No rash. HEENT: Normocephalic. Atraumatic. Pupils equal and round. No scleral icterus. No injection or drainage. No nasal bleeding or discharge. Mucous membranes pink and moist. NECK: Supple. Trachea midline. CARDIOVASCULAR: Regular rate and rhythm. S1, S2 noted. No murmur appreciated. RESPIRATORY: No accessory muscle use. Clear to auscultation. Breath sounds equal bilaterally. GASTROINTESTINAL: Abdomen soft, non-tender, nondistended. Normoactive bowel sounds x4. MUSCULOSKELETAL: No obvious deformities. Extremities without clubbing, cyanosis , or edema. NEUROLOGICAL: Awake and alert. No obvious cranial nerve deficits. Motor grossly within normal limits. 5/5 muscle strength in bilateral upper and lower extremities. Normal speech. PSYCHIATRIC: Appropriate mood and affect; insight and judgment normal. A/P Problem List: (1) Nausea & vomiting ICD Code: R11.2 - Nausea with vomiting, unspecified (2) Dehydration ICD Code: E86.0 - Dehydration (3) Hyponatremia ICD Code: E87.1 - Hypo-osmolality and hyponatremia (4) Leukocytosis ICD Code: D72.829 - Elevated white blood cell count, unspecified (5) Pancreatic cancer ICD Code: C25.9 - Malignant neoplasm of pancreas, unspecified Status: Chronic (6) Liver metastases ICD Code: C78.7 - Secondary malignant neoplasm of liver and intrahepatic bile duct Status: Chronic (7) Sepsis ICD Code: A41.9 - Sepsis, unspecified organism Assessment and Plan Sepsis with bacteremia suspect secondary to possible biliary stent and possible ascending cholangitis (presented with fever, leukocytosis, tachycardia, positive blood cultures 4 with Escherichia coli). Infectious disease consulted. Appreciate further input and recommendations. Recheck blood cultures. Continue IV Rocephin. Continue IV fluids. Blood cultures no growth to date. Continue to follow. Monitor for fevers. Supportive care. Malnutrition, mild: Started on Megace. Encouraged PO intake. Continue to monitor. Nausea/vomiting: Improved. Continue Zofran as needed. Hypokalemia, suspect secondary to above: Continued potassium at 2.8 despite replacement. Will check urine 24-hour potassium. Follow. Will continue replacement. Follow BMP. Metastatic pancreatic head adenocarcinoma: Appreciate oncology recommendations, Dr. Cho is following patient. Continue pain control. Per oncology, patient is hospice appropriate. Palliative care has seen patient and following. At this time patient is refusing Hospice care and will continue full code status. Supportive care. Normocytic, normochromic anemia: Likely secondary to dilutional source. Hemoglobin is stable at 8.5. Hemoccult negative. Follow. Hypertension: Continue verapamil. Monitor BP trends. DVT prophylaxis: SCDs, JAYNA hose, subcutaneous heparin. Problem Qualifiers (1) Sepsis: Qualified Codes: A41.51 - Sepsis due to Escherichia coli [e. coli] Pratibha Quinonez Nov 07, 2017 07:46
[2017-11-07] MEDS ORDERED: POTASSIUM CHLOR 20 MEQ PREMIX 100 ML IV SCH (08:00)
[2017-11-07] MEDS ORDERED: POTASSIUM CHLORIDE 10 MEQ CONTROLLED RELEASE TAB PO ONE ×2 (08:00→15:15)
[2017-11-07] MEDS ORDERED: POTASSIUM CHLORIDE 25 MEQ EFFERVESCENT TAB NG SCH (09:00)
[2017-11-07] MEDS: SODIUM CHLORIDE 0.9% FLUSH 10 ML FLUSH IV FLUSH SCH ×2 (09:00→20:37)
[2017-11-07 10:00] VITALS: BP 144/65; PULSE 96; RESP 18; TEMP 97.3; O2SAT 100
[2017-11-07] MEDS: DOCUSATE SODIUM 50 MG/SENNA 8.6 MG TAB PO SCH ×2 (10:18→20:37)
[2017-11-07] MEDS: MEGESTROL ACETATE SUSP 400 MG/10 ML CUP PO SCH (10:18)
[2017-11-07] MEDS: NS + KCL 20 MEQ INJ 1,000 ML IV SCH ×2 (10:18→18:00)
[2017-11-07] MEDS: LACTOBACILLUS ACIDOPHILUS TAB PO SCH ×2 (10:18→20:37)
[2017-11-07] MEDS: VERAPAMIL HCL 240 MG SUSTAINED RELEASE TAB PO SCH (10:19)
[2017-11-07] MEDS ORDERED: MAGNESIUM SULFATE 1 GM PREMIX 100 ML IV SCH (11:00)
[2017-11-07 12:00] VITALS: BP 136/65; PULSE 101; RESP 18; TEMP 98.1; O2SAT 99
--- NOTE | 2017-11-07 12:12 | HHI.IDPN ---
Subjective Subjective Remarks No fevers Appetite better No abdominal pain More jaundiced Antibiotics Ceftriaxone Lines [place] Past Medical History Pancreatic cancer Hypertension Arthritis Past Surgical History Cholecystectomy Bilateral cataract surgery Pancreatic stent Hgjebz-l-Sxpw placement Tonsillectomy Allergies: Coded Allergies: No Known Allergies (Unverified Allergy, Unknown, 11/02/17) Objective . Vital Signs Date Time Temp Pulse Resp B/P (MAP) Pulse Ox O2 Delivery O2 Flow Rate FiO2 11/07/17 10:00 97.3 96 18 144/65 (91) 100 11/07/17 04:00 97.4 106 16 143/74 (97) 96 11/07/17 00:00 97.2 90 16 129/61 (83) 98 11/06/17 20:00 100 11/06/17 20:00 98.5 92 16 124/58 (80) 98 11/06/17 19:00 98 Nasal Cannula 2.00 11/06/17 18:51 96.7 95 18 135/67 (89) 97 11/06/17 14:01 Room Air 2.00 11/06/17 13:43 96.7 95 18 135/67 (89) 97 . Laboratory Tests Test 11/06/17 09:05 White Blood Count 14.0 TH/MM3 Red Blood Count 3.00 MIL/MM3 Hemoglobin 8.5 GM/DL Hematocrit 25.5 % Mean Corpuscular Volume 84.8 FL Mean Corpuscular Hemoglobin 28.2 PG Mean Corpuscular Hemoglobin Concent 33.3 % Red Cell Distribution Width 17.3 % Platelet Count 306 TH/MM3 Mean Platelet Volume 7.5 FL CBC Comment AUTO DIFF Differential Total Cells Counted 100 Neutrophils % (Manual) 88 % Band Neutrophils % 3 % Lymphocytes % 6 % Monocytes % 3 % Neutrophils # (Manual) 12.7 TH/MM3 Differential Comment FINAL DIFF MANUAL Platelet Estimate NORMAL Platelet Morphology Comment NORMAL Laboratory Tests Test 11/06/17 05:50 11/06/17 17:20 11/07/17 05:00 Blood Urea Nitrogen 10 MG/DL 8 MG/DL Creatinine 0.44 MG/DL 0.37 MG/DL Random Glucose 82 MG/DL 106 MG/DL Total Protein 5.0 GM/DL 4.9 GM/DL Albumin 1.6 GM/DL 1.5 GM/DL Calcium Level 7.3 MG/DL 7.0 MG/DL Alkaline Phosphatase 639 U/L 594 U/L Aspartate Amino Transf (AST/SGOT) 88 U/L 80 U/L Alanine Aminotransferase (ALT/SGPT) 50 U/L 43 U/L Total Bilirubin 8.5 MG/DL 9.8 MG/DL Sodium Level 135 MEQ/L 137 MEQ/L Potassium Level 2.8 MEQ/L 2.8 MEQ/L 2.8 MEQ/L Chloride Level 104 MEQ/L 106 MEQ/L Carbon Dioxide Level 23.1 MEQ/L 25.6 MEQ/L Anion Gap 8 MEQ/L 5 MEQ/L Estimat Glomerular Filtration Rate 139 ML/MIN 170 ML/MIN Protein Corrected Calcium 8.5 MG/DL 8.2 MG/DL Magnesium Level 1.6 MG/DL 1.7 MG/DL Microbiology Date/Time Source Procedure Growth Status 11/05/17 18:25 Blood Arterial Line Aerobic Blood Culture - Preliminary NO GROWTH IN 2 DAYS Resulted 11/05/17 18:25 Blood Arterial Line Anaerobic Blood Culture - Preliminary NO GROWTH IN 2 DAYS Resulted 11/05/17 18:15 Blood Arterial Line Aerobic Blood Culture - Preliminary NO GROWTH IN 2 DAYS Resulted 11/05/17 18:15 Blood Arterial Line Anaerobic Blood Culture - Preliminary NO GROWTH IN 2 DAYS Resulted 11/04/17 23:30 Stool Stool Stool Occult Blood (FELICIA) - Final HEMOCCULT NEGATIVE Complete Physical Exam GENERAL: This is a chronically ill cachetic patient SKIN: No rashes, ecchymoses or lesions. Cool and dry. Skin jaundiced HEAD: Atraumatic. Normocephalic. No temporal or scalp tenderness. EYES: Pupils equal round and reactive. Extraocular motions intact. Scleral icterus ENT: Nose without bleeding, purulent drainage or septal hematoma. Throat without erythema, tonsillar hypertrophy or exudate. Uvula midline. Airway patent. NECK: Trachea midline. No JVD or lymphadenopathy. Supple, nontender, no meningeal signs. CARDIOVASCULAR: Regular rate and rhythm without murmurs, gallops, or rubs. RESPIRATORY: Clear to auscultation. Breath sounds equal bilaterally. No wheezes , rales, or rhonchi. right chest infusaport no redness, or swelling no pain GASTROINTESTINAL: Abdomen soft, non-tender, nondistended.Hepatomegaly MUSCULOSKELETAL: Extremities without clubbing, cyanosis, or edema. No joint tenderness, effusion, or edema noted. No calf tenderness. Negative Homans sign bilaterally. NEUROLOGICAL: Awake and alert. Cranial nerves II through XII intact. Motor and sensory grossly within normal limits. Five out of 5 muscle strength in all muscle groups. Normal speech. Assessment & Plan Diagnosis: (1) Bacteremia due to Escherichia coli ICD Codes: R78.81 - Bacteremia Status: Acute Plan: Likely secondary to cholangitis Patient is more jaundiced so will change the Ceftriaxone to Cefazolin If blood cultures remain negative at 72 hrs - and no more fevers- she can be changed to PO Cefuroxime 500 mg bid (2) Sepsis ICD Codes: A41.9 - Sepsis, unspecified organism Status: Resolved (3) Liver metastases ICD Codes: C78.7 - Secondary malignant neoplasm of liver and intrahepatic bile duct Status: Chronic (4) Pancreatic cancer ICD Codes: C25.9 - Malignant neoplasm of pancreas, unspecified Status: Chronic Problem Qualifiers (1) Sepsis: Qualified Codes: A41.51 - Sepsis due to Escherichia coli [e. coli] Sheridan Collins MD Nov 07, 2017 12:12
[2017-11-07 16:00] VITALS: BP 129/66; PULSE 100; RESP 18; TEMP 96.1; O2SAT 98
[2017-11-07] MEDS: LORazepam 0.5 MG TAB PO PRN (20:42)
[2017-11-07 20:54] VITALS: BP 119/76; PULSE 97; RESP 16; TEMP 96.7; O2SAT 99
[2017-11-08] VITALS (7 sets, daily range): BP systolic 126–139; BP diastolic 66–78; PULSE 88–106; RESP 18–20; TEMP 97–97.8; O2SAT 96–100
[2017-11-08] MEDS: HEPARIN SODIUM - SQ 10,000 UNITS/ML VIAL SQ SCH ×3 (05:55→21:20)
[2017-11-08 08:19] LABS: HEMATOCRIT 24.1 % (35.0-46.0); HEMOGLOBIN 8.1 GM/DL (11.6-15.3); MEAN CORPUSCULAR HEMOGLOBIN 28.7 PG (27.0-34.0); MEAN CORPUSCULAR HGB CONC 33.8 % (32.0-36.0); MEAN PLATELET VOLUME 7.9 FL (7.0-11.0); PLATELET COUNT 257 TH/MM3 (150-450); RED BLOOD COUNT 2.83 MIL/MM3 (4.00-5.30); RED CELL DISTRIBUTION WIDTH 18.2 % (11.6-17.2); WHITE BLOOD COUNT 12.1 TH/MM3 (4.0-11.0)
[2017-11-08] MEDS: LACTOBACILLUS ACIDOPHILUS TAB PO SCH ×2 (08:23→21:21)
[2017-11-08] MEDS: DOCUSATE SODIUM 50 MG/SENNA 8.6 MG TAB PO SCH ×2 (08:23→21:00)
[2017-11-08] MEDS: VERAPAMIL HCL 240 MG SUSTAINED RELEASE TAB PO SCH (08:23)
[2017-11-08] MEDS: MEGESTROL ACETATE SUSP 400 MG/10 ML CUP PO SCH (08:23)
[2017-11-08 08:26] LABS: ALBUMIN 1.5 GM/DL (3.4-5.0); BICARBONATE 22.9 MEQ/L (21.0-32.0); CALCIUM 7.4 MG/DL (8.5-10.1); CALCIUM-PROTEIN CORRECTED 8.5 MG/DL (8.5-10.1); CREATININE 0.39 MG/DL (0.50-1.00); TOTAL BILIRUBIN ADULT 10.9 MG/DL (0.2-1.0); TOTAL PROTEIN 5.1 GM/DL (6.4-8.2)
[2017-11-08] MEDS: NS + KCL 20 MEQ INJ 1,000 ML IV SCH ×3 (08:30→21:20)
[2017-11-08] MEDS: SODIUM CHLORIDE 0.9% FLUSH 10 ML FLUSH IV FLUSH SCH ×2 (08:32→21:21)
[2017-11-08 08:50] LABS: BANDS 3 % (0-6); LYMPHOCYTES 13 % (9-44); MONOCYTES 3 % (0-8); POLYS (SEG NEUTROPHILS) 80 % (16-70)
[2017-11-08] MEDS ORDERED: GETGO ROLLING W1 MI1 (10:31)
--- NOTE | 2017-11-08 10:32 | HHI.FF ---
Face to Face Verification Diagnosis: (1) Bacteremia due to Escherichia coli (2) Sepsis (3) Liver metastases (4) Pancreatic cancer Physical Therapy Order: Evaluate and Treat, Improve ambulation, Strength and gait training Home Health Nursing Order: Medical education Signs/symptoms of disease process Medication education-adverse effect Nursing assessment with vital signs I have seen patient Lena Long on 11/08/17. My clinical findings support the need for the requested home health care services because: Deconditioned w/ increased weakness Limited ability to care for self I certify that my clinical findings support that this patient is homebound because: Unsteady gait/balance Pratibha Quinonez Nov 08, 2017 10:32
--- NOTE | 2017-11-08 11:03 | HHI.PR ---
Subjective Remarks Follow-up intractable nausea and vomiting and metastatic pancreatic cancer. Patient seen and examined, lying in bed comfortably. Family at bedside and updated about all labs and imaging and plan of care. Patient states that she slept well. Is feeling improved. Does complain of continued continued dyspnea on exertion. Continued on supplemental O2. Objective Vitals Vital Signs Date Time Temp Pulse Resp B/P (MAP) Pulse Ox O2 Delivery O2 Flow Rate FiO2 11/08/17 08:30 98 Nasal Cannula 2.00 11/08/17 08:00 97.8 95 18 138/78 (98) 98 11/08/17 04:00 97.1 103 18 139/70 (93) 97 11/07/17 20:54 96.7 97 16 119/76 (90) 99 11/07/17 19:00 97 Nasal Cannula 2.00 11/07/17 16:00 96.1 100 18 129/66 (87) 98 11/07/17 12:43 Nasal Cannula 2.00 11/07/17 12:00 98.1 101 18 136/65 (88) 99 I/O 11/07/17 11/07/17 11/07/17 11/08/17 11/08/17 11/08/17 07:00 15:00 23:00 07:00 15:00 23:00 Intake Total 540 ml 1580 ml 480 ml Output Total 900 ml 600 ml 525 ml Balance -360 ml 980 ml -45 ml Intake Oral 540 ml 480 ml 480 ml IV Total 1100 ml Output Urine Total 900 ml 600 ml 525 ml # Bowel Movements 0 1 1 Result Diagram: 11/08/17 0640 11/08/17 0640 Imaging Last Impressions Abdomen/Pelvis CT 11/02/172129 Signed Impressions: Service Date/Time: Thursday, November 02, 2017 21:55 - CONCLUSION: 1. Worsening metastatic disease to liver. 2. Metastatic adenopathy in the upper abdomen not present on the prior examination. Marcos Aquino MD Chest X-Ray 11/02/172014 Signed Impressions: Service Date/Time: Thursday, November 02, 2017 20:35 - CONCLUSION: No acute cardiopulmonary disease. Marcos Aquino MD Objective Remarks GENERAL: Well-developed, thin appearing female patient in NAD. SKIN: Warm and dry. No rash. HEENT: Normocephalic. Atraumatic. Pupils equal and round. No scleral icterus. No injection or drainage. No nasal bleeding or discharge. Mucous membranes pink and moist. NECK: Supple. Trachea midline. CARDIOVASCULAR: Regular rate and rhythm. S1, S2 noted. No murmur appreciated. RESPIRATORY: No accessory muscle use. Clear to auscultation. Breath sounds equal bilaterally. GASTROINTESTINAL: Abdomen soft, non-tender, nondistended. Normoactive bowel sounds x4. MUSCULOSKELETAL: No obvious deformities. Extremities without clubbing, cyanosis , or edema. NEUROLOGICAL: Awake and alert. No obvious cranial nerve deficits. Motor grossly within normal limits. 5/5 muscle strength in bilateral upper and lower extremities. Normal speech. PSYCHIATRIC: Appropriate mood and affect; insight and judgment normal. A/P Problem List: (1) Nausea & vomiting ICD Code: R11.2 - Nausea with vomiting, unspecified (2) Dehydration ICD Code: E86.0 - Dehydration (3) Hyponatremia ICD Code: E87.1 - Hypo-osmolality and hyponatremia (4) Leukocytosis ICD Code: D72.829 - Elevated white blood cell count, unspecified (5) Pancreatic cancer ICD Code: C25.9 - Malignant neoplasm of pancreas, unspecified Status: Chronic (6) Liver metastases ICD Code: C78.7 - Secondary malignant neoplasm of liver and intrahepatic bile duct Status: Chronic (7) Sepsis ICD Code: A41.9 - Sepsis, unspecified organism Status: Resolved Assessment and Plan Sepsis with bacteremia suspect secondary to possible biliary stent and possible ascending cholangitis (presented with fever, leukocytosis, tachycardia, positive blood cultures 4 with Escherichia coli). Infectious disease consulted. Appreciate further input and recommendations. Blood cultures no growth to date at seventy-two hours. Per infectious disease will change IV antibiotics to PO. Continue IV Rocephin. Continue IV fluids. Afebrile overnight Monitor for fevers. Supportive care. Patient has dyspnea with exertion, requiring oxygen. Will order home O2 walk test. Continue to monitor. Malnutrition, mild: Started on Megace. Encouraged PO intake. Continue to monitor. Nausea/vomiting: Improved. Continue Zofran as needed. Hypokalemia, suspect secondary to above: Resolved, K4.0 today. Urine 24-hour potassium pending. Follow. Metastatic pancreatic head adenocarcinoma: Appreciate oncology recommendations, Dr. Cho is following patient. Continue pain control. Per oncology, patient is hospice appropriate. Palliative care has seen patient and following. At this time patient is refusing Hospice care and will continue full code status. Supportive care. Normocytic, normochromic anemia: Hemoglobin is stable at 8.1. Hemoccult negative. Hypertension: Continue verapamil. Monitor BP trends. DVT prophylaxis: SCDs, JAYNA hose, subcutaneous heparin. Problem Qualifiers (1) Sepsis: Qualified Codes: A41.51 - Sepsis due to Escherichia coli [e. coli] Pratibha Quinonez Nov 08, 2017 11:03
[2017-11-08] MEDS: CEFUROXIME AXETIL 500 MG TAB PO SCH ×2 (13:57→21:21)
--- NOTE | 2017-11-08 17:49 | HHI.IDPN ---
Subjective Subjective Remarks ID FU DR BA NO FEVER OR CHILLS FEELS BETTER REPEAT BC NEGATIVE AT 72H Antibiotics Ceftriaxone Lines [place] Past Medical History Pancreatic cancer Hypertension Arthritis Past Surgical History Cholecystectomy Bilateral cataract surgery Pancreatic stent Ppczby-i-Kfof placement Tonsillectomy Allergies: Coded Allergies: No Known Allergies (Unverified Allergy, Unknown, 11/02/17) Objective . Vital Signs Date Time Temp Pulse Resp B/P (MAP) Pulse Ox O2 Delivery O2 Flow Rate FiO2 11/08/17 16:16 98 Nasal Cannula 2.00 11/08/17 16:00 97.0 106 18 139/71 (93) 96 11/08/17 12:00 97.0 105 18 126/66 (86) 100 11/08/17 08:30 98 Nasal Cannula 2.00 11/08/17 08:03 88 11/08/17 08:00 97.8 95 18 138/78 (98) 98 11/08/17 04:00 97.1 103 18 139/70 (93) 97 11/07/17 20:54 96.7 97 16 119/76 (90) 99 11/07/17 19:00 97 Nasal Cannula 2.00 11/08/17 11/08/17 11/09/17 15:00 23:00 07:00 Intake Total 610 ml Balance 610 ml Intake Oral 510 ml IV Total 100 ml # Voids 3 # Bowel Movements 1 . Laboratory Tests Test 11/08/17 06:40 White Blood Count 12.1 TH/MM3 Red Blood Count 2.83 MIL/MM3 Hemoglobin 8.1 GM/DL Hematocrit 24.1 % Mean Corpuscular Volume 85.0 FL Mean Corpuscular Hemoglobin 28.7 PG Mean Corpuscular Hemoglobin Concent 33.8 % Red Cell Distribution Width 18.2 % Platelet Count 257 TH/MM3 Mean Platelet Volume 7.9 FL CBC Comment AUTO DIFF Differential Total Cells Counted 100 Neutrophils % (Manual) 80 % Band Neutrophils % 3 % Lymphocytes % 13 % Monocytes % 3 % Eosinophils % 1 % Neutrophils # (Manual) 10.0 TH/MM3 Differential Comment FINAL DIFF MANUAL Laboratory Tests Test 11/07/17 05:00 11/08/17 06:40 Blood Urea Nitrogen 8 MG/DL 7 MG/DL Creatinine 0.37 MG/DL 0.39 MG/DL Random Glucose 106 MG/DL 118 MG/DL Total Protein 4.9 GM/DL 5.1 GM/DL Albumin 1.5 GM/DL 1.5 GM/DL Calcium Level 7.0 MG/DL 7.4 MG/DL Alkaline Phosphatase 594 U/L 546 U/L Aspartate Amino Transf (AST/SGOT) 80 U/L 88 U/L Alanine Aminotransferase (ALT/SGPT) 43 U/L 43 U/L Total Bilirubin 9.8 MG/DL 10.9 MG/DL Sodium Level 137 MEQ/L 137 MEQ/L Potassium Level 2.8 MEQ/L 4.0 MEQ/L Chloride Level 106 MEQ/L 107 MEQ/L Carbon Dioxide Level 25.6 MEQ/L 22.9 MEQ/L Anion Gap 5 MEQ/L 7 MEQ/L Estimat Glomerular Filtration Rate 170 ML/MIN 160 ML/MIN Protein Corrected Calcium 8.2 MG/DL 8.5 MG/DL Magnesium Level 1.7 MG/DL Microbiology Date/Time Source Procedure Growth Status 11/05/17 18:25 Blood Arterial Line Aerobic Blood Culture - Preliminary NO GROWTH IN 3 DAYS Resulted 11/05/17 18:25 Blood Arterial Line Anaerobic Blood Culture - Preliminary NO GROWTH IN 3 DAYS Resulted 11/05/17 18:15 Blood Arterial Line Aerobic Blood Culture - Preliminary NO GROWTH IN 3 DAYS Resulted 11/05/17 18:15 Blood Arterial Line Anaerobic Blood Culture - Preliminary NO GROWTH IN 3 DAYS Resulted Physical Exam GENERAL: This is a chronically ill cachetic patient SKIN: No rashes, ecchymoses or lesions. Cool and dry. Skin jaundiced HEAD: Atraumatic. Normocephalic. No temporal or scalp tenderness. EYES: Pupils equal round and reactive. Extraocular motions intact. Scleral icterus ENT: Nose without bleeding, purulent drainage or septal hematoma. Throat without erythema, tonsillar hypertrophy or exudate. Uvula midline. Airway patent. NECK: Trachea midline. No JVD or lymphadenopathy. Supple, nontender, no meningeal signs. CARDIOVASCULAR: Regular rate and rhythm without murmurs, gallops, or rubs. RESPIRATORY: Clear to auscultation. Breath sounds equal bilaterally. No wheezes , rales, or rhonchi. right chest infusaport no redness, or swelling no pain GASTROINTESTINAL: Abdomen soft, non-tender, nondistended.Hepatomegaly MUSCULOSKELETAL: Extremities without clubbing, cyanosis, or edema. No joint tenderness, effusion, or edema noted. No calf tenderness. Negative Homans sign bilaterally. NEUROLOGICAL: Awake and alert. Cranial nerves II through XII intact. Motor and sensory grossly within normal limits. Five out of 5 muscle strength in all muscle groups. Normal speech. Assessment & Plan Diagnosis: (1) Bacteremia due to Escherichia coli ICD Codes: R78.81 - Bacteremia Status: Acute Plan: Continue rocephin 2g iv q24h monitor cultures can do cefuroxime 500mg po tid x 14days on dc pt to see shands next week (2) Nausea & vomiting ICD Codes: R11.2 - Nausea with vomiting, unspecified (3) Sepsis ICD Codes: A41.9 - Sepsis, unspecified organism Status: Resolved (4) Abdominal pain ICD Codes: R10.9 - Unspecified abdominal pain Status: Acute (5) Liver metastases ICD Codes: C78.7 - Secondary malignant neoplasm of liver and intrahepatic bile duct Status: Chronic (6) Pancreatic cancer ICD Codes: C25.9 - Malignant neoplasm of pancreas, unspecified Status: Chronic Problem Qualifiers (1) Sepsis: Qualified Codes: A41.51 - Sepsis due to Escherichia coli [e. coli] Patti Cannon [facility] Nov 08, 2017 17:49
[2017-11-08] MEDS: LORazepam 0.5 MG TAB PO PRN (21:21)
[2017-11-09] VITALS: BP 147/67; PULSE 97; RESP 20; TEMP 97.6; O2SAT 99
[2017-11-09 04:00] VITALS: BP 142/67; PULSE 94; RESP 20; TEMP 96.6; O2SAT 99
[2017-11-09] MEDS: HEPARIN SODIUM - SQ 10,000 UNITS/ML VIAL SQ SCH ×3 (05:27→22:18)
[2017-11-09 07:36] LABS: HEMATOCRIT 22.2 % (35.0-46.0); HEMOGLOBIN 7.4 GM/DL (11.6-15.3); MEAN CELL VOLUME 84.2 FL (80.0-100.0); MEAN CORPUSCULAR HEMOGLOBIN 27.9 PG (27.0-34.0); MEAN CORPUSCULAR HGB CONC 33.2 % (32.0-36.0); MEAN PLATELET VOLUME 7.2 FL (7.0-11.0); PLATELET COUNT 240 TH/MM3 (150-450); RED BLOOD COUNT 2.63 MIL/MM3 (4.00-5.30); WHITE BLOOD COUNT 12.8 TH/MM3 (4.0-11.0)
[2017-11-09 08:00] VITALS: BP 135/70; PULSE 107; RESP 24; TEMP 96.5; O2SAT 97
[2017-11-09 08:01] LABS: BICARBONATE 25.8 MEQ/L (21.0-32.0); CREATININE 0.33 MG/DL (0.50-1.00); MAGNESIUM 1.6 MG/DL (1.5-2.5)
[2017-11-09 08:10] VITALS: PULSE 105
[2017-11-09 08:28] LABS: CALCIUM 7.1 MG/DL (8.5-10.1)
[2017-11-09 08:38] LABS: BANDS 7 % (0-6); BASOPHILS 1 % (0-2); LYMPHOCYTES 5 % (9-44); MONOCYTES 4 % (0-8); NEUTROPHIL # MANUAL DIFF 11.5 TH/MM3 (1.8-7.7); POLYS (SEG NEUTROPHILS) 83 % (16-70)
[2017-11-09 08:40] LABS: CALCIUM-PROTEIN CORRECTED 8.3 MG/DL (8.5-10.1); TOTAL PROTEIN 4.9 GM/DL (6.4-8.2)
[2017-11-09] MEDS: LORazepam 0.5 MG TAB PO PRN ×2 (09:42→23:03)
[2017-11-09] MEDS: CEFUROXIME AXETIL 500 MG TAB PO SCH ×2 (09:43→22:18)
[2017-11-09] MEDS: LACTOBACILLUS ACIDOPHILUS TAB PO SCH ×2 (09:43→22:18)
[2017-11-09] MEDS: VERAPAMIL HCL 240 MG SUSTAINED RELEASE TAB PO SCH (09:43)
[2017-11-09] MEDS: MEGESTROL ACETATE SUSP 400 MG/10 ML CUP PO SCH (09:43)
[2017-11-09] MEDS: DOCUSATE SODIUM 50 MG/SENNA 8.6 MG TAB PO SCH ×2 (09:46→22:19)
[2017-11-09] MEDS: SODIUM CHLORIDE 0.9% FLUSH 10 ML FLUSH IV FLUSH SCH ×2 (09:51→22:19)
[2017-11-09 12:00] VITALS: BP 126/62; PULSE 103; RESP 24; TEMP 97; O2SAT 98
--- NOTE | 2017-11-09 12:41 | HHI.PR ---
Subjective Remarks Follow-up metastatic pancreatic cancer and bacteremia. Patient seen and examined , family at bedside and updated extensively regarding treatment plan, labs and imaging. Patient is expressing motivation and desire to continue with treatment and desiring to go along with liver biopsy and cancer treatment despite oncologist prognosis. Denies any desire for Hospice and comfort measures at this time. Patient's appetite is improving mildly. Denies any chest pain, nausea , vomiting, diarrhea. Vitals signs are stable. Blood cultures NGTD. Afebrile. Objective Vitals Vital Signs Date Time Temp Pulse Resp B/P (MAP) Pulse Ox O2 Delivery O2 Flow Rate FiO2 11/09/17 08:00 96.5 107 24 135/70 (91) 97 11/09/17 04:00 96.6 94 20 142/67 (92) 99 11/09/17 00:00 97.6 97 20 147/67 (93) 99 11/08/17 20:00 97 Nasal Cannula 2.00 28 11/08/17 20:00 101 11/08/17 20:00 97.5 99 20 127/67 (87) 97 11/08/17 16:16 98 Nasal Cannula 2.00 11/08/17 16:00 97.0 106 18 139/71 (93) 96 I/O 11/08/17 11/08/17 11/08/17 11/09/17 11/09/17 11/09/17 07:00 15:00 23:00 07:00 15:00 23:00 Intake Total 480 ml 610 ml 1000 ml 675 ml Output Total 525 ml Balance -45 ml 610 ml 1000 ml 675 ml Intake Oral 480 ml 510 ml 120 ml IV Total 100 ml 1000 ml 555 ml Output Urine Total 525 ml # Voids 3 2 # Bowel Movements 1 1 Result Diagram: 11/09/1715 11/09/17 0715 Imaging Last Impressions Abdomen/Pelvis CT 11/02/172129 Signed Impressions: Service Date/Time: Thursday, November 02, 2017 21:55 - CONCLUSION: 1. Worsening metastatic disease to liver. 2. Metastatic adenopathy in the upper abdomen not present on the prior examination. Marcos Aquino MD Chest X-Ray 11/02/172014 Signed Impressions: Service Date/Time: Thursday, November 02, 2017 20:35 - CONCLUSION: No acute cardiopulmonary disease. Marcos Aquino MD Objective Remarks GENERAL: Well-developed, thin appearing female patient in NAD. SKIN: Warm and dry. No rash. Jaundice. HEENT: Normocephalic. Atraumatic. Pupils equal and round. No scleral icterus. No injection or drainage. No nasal bleeding or discharge. Mucous membranes pink and moist. NECK: Supple. Trachea midline. CARDIOVASCULAR: Regular rate and rhythm. S1, S2 noted. No murmur appreciated. RESPIRATORY: No accessory muscle use. Clear to auscultation. Breath sounds equal bilaterally. GASTROINTESTINAL: Abdomen soft, non-tender, nondistended. Normoactive bowel sounds x4. MUSCULOSKELETAL: No obvious deformities. Extremities without clubbing, cyanosis , or edema. NEUROLOGICAL: Awake and alert. No obvious cranial nerve deficits. Motor grossly within normal limits. 5/5 muscle strength in bilateral upper and lower extremities. Normal speech. PSYCHIATRIC: Appropriate mood and affect; insight and judgment normal. A/P Problem List: (1) Nausea & vomiting ICD Code: R11.2 - Nausea with vomiting, unspecified (2) Dehydration ICD Code: E86.0 - Dehydration (3) Hyponatremia ICD Code: E87.1 - Hypo-osmolality and hyponatremia (4) Leukocytosis ICD Code: D72.829 - Elevated white blood cell count, unspecified (5) Pancreatic cancer ICD Code: C25.9 - Malignant neoplasm of pancreas, unspecified Status: Chronic (6) Liver metastases ICD Code: C78.7 - Secondary malignant neoplasm of liver and intrahepatic bile duct Status: Chronic (7) Sepsis ICD Code: A41.9 - Sepsis, unspecified organism Status: Resolved Assessment and Plan Sepsis with bacteremia suspect secondary to possible biliary stent and possible ascending cholangitis (presented with fever, leukocytosis, tachycardia, positive blood cultures 4 with Escherichia coli). Infectious disease consulted. Appreciate further input and recommendations. Blood cultures no growth to date x 4 days. Per infectious disease will change IV antibiotics to PO. Continue IV fluids. Afebrile overnight Monitor for fevers. Supportive care. Patient dyspnea improving. Passed walk test. Lying comfortable on RA. Malnutrition, mild: Started on Megace. Encouraged PO intake. Continue to monitor. Improving somewhat. Nausea/vomiting: Improved. Continue Zofran as needed. Hypokalemia, suspect secondary to above: Improving, K3.5 today. Urine 24-hour potassium pending. Follow. Will supplement potassium today. Metastatic pancreatic head adenocarcinoma: Appreciate oncology recommendations, Dr. Cho is following patient. Prognosis is poor. Continue pain control. Per oncology, patient is hospice appropriate. Palliative care has seen patient and following. At this time patient is refusing Hospice care and will continue full code status. Supportive care. Covering oncologist, Dr. Leiva, was contacted regarding patient's desire to undergo liver biopsy and treatment despite poor prognosis. Await recommendations and further input from Dr. Cho tomorrow. Possible DC tomorrow to rehab depending on biopsy recommendations and plan. Normocytic, normochromic anemia: Hemoglobin is stable at 8.3. Hypertension: Continue verapamil. Monitor BP trends. DVT prophylaxis: SCDs, JAYNA hose, subcutaneous heparin. Discharge Planning DC to rehabilitation when stable. Await recommendations for patient's desire of liver biopsy while hospitalized. Oncology following. Problem Qualifiers (1) Sepsis: Qualified Codes: A41.51 - Sepsis due to Escherichia coli [e. coli] Pratibha Quinonez Nov 09, 2017 12:41
[2017-11-09] MEDS: NS + KCL 20 MEQ INJ 1,000 ML IV SCH ×2 (14:57→22:18)
[2017-11-09 15:25] LABS: HEMATOCRIT 24.7 % (35.0-46.0); HEMOGLOBIN 8.3 GM/DL (11.6-15.3)
--- NOTE | 2017-11-09 15:48 | HHI.IDPN ---
Subjective Subjective Remarks ID FU DR BA FEELS BETTER + NAUSEA BC NEGATIVE 4DAYS Antibiotics Ceftriaxone Lines [place] Past Medical History Pancreatic cancer Hypertension Arthritis Past Surgical History Cholecystectomy Bilateral cataract surgery Pancreatic stent [id number] placement Tonsillectomy Allergies: Coded Allergies: No Known Allergies (Unverified Allergy, Unknown, 11/02/17) Objective . Vital Signs Date Time Temp Pulse Resp B/P (MAP) Pulse Ox O2 Delivery O2 Flow Rate FiO2 11/09/17 12:00 97.0 103 24 126/62 (83) 98 11/09/17 09:43 97 Nasal Cannula 2.00 11/09/17 08:10 105 11/09/17 08:00 96.5 107 24 135/70 (91) 97 11/09/17 04:00 96.6 94 20 142/67 (92) 99 11/09/17 00:00 97.6 97 20 147/67 (93) 99 11/08/17 20:00 97 Nasal Cannula 2.00 28 11/08/17 20:00 101 11/08/17 20:00 97.5 99 20 127/67 (87) 97 11/08/17 16:16 98 Nasal Cannula 2.00 11/08/17 16:00 97.0 106 18 139/71 (93) 96 11/09/17 11/09/17 11/10/17 15:00 23:00 07:00 Intake Total 570 ml Balance 570 ml Intake Oral 570 ml # Voids 3 # Bowel Movements 1 . Laboratory Tests Test 11/08/17 06:40 11/09/17 07:15 11/09/17 15:18 White Blood Count 12.1 TH/MM3 12.8 TH/MM3 Red Blood Count 2.83 MIL/MM3 2.63 MIL/MM3 Hemoglobin 8.1 GM/DL 7.4 GM/DL 8.3 GM/DL Hematocrit 24.1 % 22.2 % 24.7 % Mean Corpuscular Volume 85.0 FL 84.2 FL Mean Corpuscular Hemoglobin 28.7 PG 27.9 PG Mean Corpuscular Hemoglobin Concent 33.8 % 33.2 % Red Cell Distribution Width 18.2 % 18.0 % Platelet Count 257 TH/MM3 240 TH/MM3 Mean Platelet Volume 7.9 FL 7.2 FL CBC Comment AUTO DIFF AUTO DIFF Differential Total Cells Counted 100 100 Neutrophils % (Manual) 80 % 83 % Band Neutrophils % 3 % 7 % Lymphocytes % 13 % 5 % Monocytes % 3 % 4 % Eosinophils % 1 % Neutrophils # (Manual) 10.0 TH/MM3 11.5 TH/MM3 Differential Comment FINAL DIFF MANUAL FINAL DIFF MANUAL Basophils % 1 % Platelet Estimate NORMAL Platelet Morphology Comment NORMAL Laboratory Tests Test 11/08/17 06:40 11/09/17 07:15 Blood Urea Nitrogen 7 MG/DL 7 MG/DL Creatinine 0.39 MG/DL 0.33 MG/DL Random Glucose 118 MG/DL 99 MG/DL Total Protein 5.1 GM/DL 4.9 GM/DL Albumin 1.5 GM/DL Calcium Level 7.4 MG/DL 7.1 MG/DL Alkaline Phosphatase 546 U/L Aspartate Amino Transf (AST/SGOT) 88 U/L Alanine Aminotransferase (ALT/SGPT) 43 U/L Total Bilirubin 10.9 MG/DL Sodium Level 137 MEQ/L 140 MEQ/L Potassium Level 4.0 MEQ/L 3.5 MEQ/L Chloride Level 107 MEQ/L 107 MEQ/L Carbon Dioxide Level 22.9 MEQ/L 25.8 MEQ/L Anion Gap 7 MEQ/L 7 MEQ/L Estimat Glomerular Filtration Rate 160 ML/MIN 194 ML/MIN Protein Corrected Calcium 8.5 MG/DL 8.3 MG/DL Magnesium Level 1.6 MG/DL Physical Exam GENERAL: This is a chronically ill cachetic patient SKIN: No rashes, ecchymoses or lesions. Cool and dry. Skin jaundiced HEAD: Atraumatic. Normocephalic. No temporal or scalp tenderness. EYES: Pupils equal round and reactive. Extraocular motions intact. Scleral icterus ENT: Nose without bleeding, purulent drainage or septal hematoma. Throat without erythema, tonsillar hypertrophy or exudate. Uvula midline. Airway patent. NECK: Trachea midline. No JVD or lymphadenopathy. Supple, nontender, no meningeal signs. CARDIOVASCULAR: Regular rate and rhythm without murmurs, gallops, or rubs. RESPIRATORY: Clear to auscultation. Breath sounds equal bilaterally. No wheezes , rales, or rhonchi. right chest infusaport no redness, or swelling no pain GASTROINTESTINAL: Abdomen soft, non-tender, nondistended.Hepatomegaly MUSCULOSKELETAL: Extremities without clubbing, cyanosis, or edema. No joint tenderness, effusion, or edema noted. No calf tenderness. Negative Homans sign bilaterally. NEUROLOGICAL: Awake and alert. Cranial nerves II through XII intact. Motor and sensory grossly within normal limits. Five out of 5 muscle strength in all muscle groups. Normal speech. Assessment & Plan Diagnosis: (1) Bacteremia due to Escherichia coli ICD Codes: R78.81 - Bacteremia Status: Acute Plan: On rocephin 2g iv q24h monitor cultures can do cefuroxime 500mg po tid x 14days on dc pt to see shands next week (2) Nausea & vomiting ICD Codes: R11.2 - Nausea with vomiting, unspecified (3) Sepsis ICD Codes: A41.9 - Sepsis, unspecified organism Status: Resolved (4) Abdominal pain ICD Codes: R10.9 - Unspecified abdominal pain Status: Acute (5) Liver metastases ICD Codes: C78.7 - Secondary malignant neoplasm of liver and intrahepatic bile duct Status: Chronic (6) Pancreatic cancer ICD Codes: C25.9 - Malignant neoplasm of pancreas, unspecified Status: Chronic Problem Qualifiers (1) Sepsis: Qualified Codes: A41.51 - Sepsis due to Escherichia coli [e. coli] Patti Cannon [facility] Nov 09, 2017 15:48
[2017-11-09] MEDS ORDERED: MAGNESIUM SULFATE 1 GM PREMIX 100 ML IV ONE (16:45)
[2017-11-09] MEDS ORDERED: POTASSIUM CHLORIDE 10 MEQ CONTROLLED RELEASE TAB PO ONE (16:45)
[2017-11-09 20:00] VITALS: BP 128/63; PULSE 101; PULSE 97; RESP 18; TEMP 98.3; O2SAT 96
[2017-11-10] VITALS: BP 121/71; PULSE 97; RESP 18; TEMP 97.9; O2SAT 99
[2017-11-10 04:00] VITALS: BP 118/75; PULSE 97; RESP 18; TEMP 97.9; O2SAT 98
[2017-11-10] MEDS: HEPARIN SODIUM - SQ 10,000 UNITS/ML VIAL SQ SCH ×2 (06:13→13:50)
[2017-11-10 06:25] LABS: BICARBONATE 23.2 MEQ/L (21.0-32.0); CALCIUM 6.9 MG/DL (8.5-10.1); CREATININE 0.33 MG/DL (0.50-1.00)
[2017-11-10 06:37] LABS: CALCIUM-PROTEIN CORRECTED 8.1 MG/DL (8.5-10.1); TOTAL PROTEIN 4.9 GM/DL (6.4-8.2)
[2017-11-10 08:00] VITALS: BP 136/66; PULSE 99; RESP 16; TEMP 96; O2SAT 95
--- NOTE | 2017-11-10 08:35 | PD.ONC.PN ---
Subjective Subjective Remarks Patient seen and examined, vital signs, labs and imaging studies reviewed. Microbiology reviewed and medication list reviewed. Patient denies acute complaints and reports feeling quite comfortable today. Objective Data Date Time Temp Pulse Resp B/P (MAP) Pulse Ox O2 Delivery O2 Flow Rate FiO2 11/10/17 04:00 97.9 97 18 118/75 (89) 98 11/10/17 00:00 97.9 97 18 121/71 (88) 99 11/09/17 20:00 97 11/09/17 20:00 97 Nasal Cannula 2.00 28 11/09/17 20:00 98.3 101 18 128/63 (84) 96 11/09/17 12:00 97.0 103 24 126/62 (83) 98 11/09/17 09:43 97 Nasal Cannula 2.00 Result Diagram: 11/09/17 1518 11/10/17 0505 Laboratory Results Laboratory Tests Test 11/09/17 15:18 11/10/17 05:05 Hemoglobin 8.3 GM/DL Hematocrit 24.7 % Blood Urea Nitrogen 8 MG/DL Creatinine 0.33 MG/DL Random Glucose 74 MG/DL Total Protein 4.9 GM/DL Calcium Level 6.9 MG/DL Sodium Level 137 MEQ/L Potassium Level 3.8 MEQ/L Chloride Level 106 MEQ/L Carbon Dioxide Level 23.2 MEQ/L Anion Gap 8 MEQ/L Estimat Glomerular Filtration Rate 194 ML/MIN Protein Corrected Calcium 8.1 MG/DL Administered Medications Medications (Trade) Dose Ordered Sig/Puneet Route PRN Reason Start Time Stop Time Status Last Admin Dose Admin Sodium Chloride (NS Flush) 2 ml UNSCH PRN IV FLUSH FLUSH AFTER USING IV ACCESS 11/02/17 23:15 11/03/17 02:12 Sodium Chloride (NS Flush) 2 ml BID IV FLUSH 11/03/17 09:00 11/09/17 22:19 Ondansetron HCl (Zofran Inj) 4 mg Q6H PRN IVP NAUSEA OR VOMITING 11/02/17 23:15 11/06/17 11:20 Senna/Docusate Sodium (Mi-Colace) 1 tab BID PO 11/03/17 09:00 11/09/17 22:19 Heparin Sodium (Porcine) (Heparin Inj) 5,000 units Q8HR SQ 2/5/18 14:00 11/10/17 06:13 Verapamil HCl (Isoptin Sr) 240 mg DAILY PO 11/03/17 13:00 11/09/17 09:43 Lorazepam (Ativan) 0.25 mg Q6HR PRN PO anxiety 11/04/17 21:45 11/09/17 23:03 Megestrol Acetate (Megace Liq) 400 mg DAILY PO 11/06/17 10:00 11/09/17 09:43 Lactobacillus Acidophilus (Lactinex) 1 tab Q12HR PO 11/06/17 10:00 11/09/17 22:18 Potassium Chloride/Sodium Chloride 1,000 ml @ 75 mls/hr [id number] IV 11/07/17 08:00 11/09/17 22:18 Cefuroxime Axetil (Ceftin) 500 mg Q12HR PO 11/08/17 14:00 11/09/17 22:18 Objective Remarks GENERAL PHYSICAL APPEARANCE: Ms. Long is an elderly lady, she appears to be frail and chronically ill. She is laying in bed under multiple layers of blankets. HEENT: Head is atraumatic, normocephalic. Conjunctivae are pale. Sclerae are icteric. EOMI, PERRLA. Oral exam - no pharyngeal erythema. NECK EXAM: No palpable cervical or supraclavicular adenopathy. RESPIRATORY EXAM: Good air movement bilaterally over the upper and middle lung zones. Decreased bibasilar breath sounds. CARDIOVASCULAR: Regular rhythm. Tachycardiac. S1, S2. No obvious murmurs, rubs or gallops. ABDOMINAL EXAM: Thin belly, tender at the epigastric and right upper quadrant areas. Positive bowel sounds. The liver is enlarged with tip palpable 2 cm below the costal margin. LOWER EXTREMITIES: No pretibial edema. No calf tenderness. MUSCULOSKELETAL: Generally decreased muscle mass and tone. FACULTY PHYSICIAN: No obvious focal sensory or motor deficits. Assessment/Plan Assessment Ms. Long is a 77-year-old female with a diagnosis of metastatic pancreatic adenocarcinoma. She was initially diagnosed in 2015. She has been under my care since her initial diagnosis. She has been on multiple lines of palliative systemic therapy including FOLFIRINOX, Abraxane/gemcitabine and most recently Keytruda which is a form of immunotherapy. The patient had been hopeful to undergo evaluation for clinical trial at the [facility] and was scheduled to undergo repeat biopsy of the liver today with the tumor specimen being analyzed for specific mutations which could be targeted. She was hoping to be matched to an active drug on the [employer] MATCH trial. Unfortunately she was admitted to the hospital last night with complaints of worsening abdominal pain, nausea and decreased oral intake. She was noted to have a low-grade temperature and was also tachycardiac. Her liver functions indicate an intrahepatic/extrahepatic obstruction with elevated alkaline phosphatase and elevated total bilirubin level which is new. She does have a biliary stent in place. Her AST and ALT levels are also deranged. Imaging studies indicate worsening metastatic disease in the liver, liver function His worsening, bilirubin level has increased over 10 with elevation in AST and ALT is well. Plan 1. Metastatic pancreatic carcinoma: Progressive multiple lines of palliative systemic therapy. Now with worsening liver function and is now appropriate for hospice. Patient voices acceptance of hospice at this time. She would like me to talk to her son and daughters. I will try to arrange a family meeting at my [place] with the and daughters later this afternoon. The patient is a voices she would prefer home with hospice as a posterior transferred to the hospice care center. Continue symptom management and supportive care for now. Igor Cho MD Nov 10, 2017 08:34
[2017-11-10] MEDS: LACTOBACILLUS ACIDOPHILUS TAB PO SCH (10:04)
[2017-11-10] MEDS: DOCUSATE SODIUM 50 MG/SENNA 8.6 MG TAB PO SCH (10:04)
[2017-11-10] MEDS: VERAPAMIL HCL 240 MG SUSTAINED RELEASE TAB PO SCH (10:04)
[2017-11-10] MEDS: SODIUM CHLORIDE 0.9% FLUSH 10 ML FLUSH IV FLUSH SCH (10:04)
[2017-11-10] MEDS: CEFUROXIME AXETIL 500 MG TAB PO SCH (10:04)
[2017-11-10] MEDS: MEGESTROL ACETATE SUSP 400 MG/10 ML CUP PO SCH (10:04)
[2017-11-10] MEDS: LORazepam 0.5 MG TAB PO PRN (10:06)
[2017-11-10 12:00] VITALS: BP 141/69; PULSE 99; RESP 18; TEMP 99.4; O2SAT 95
--- NOTE | 2017-11-10 12:46 | HHI.PR ---
Subjective Remarks Follow-up metastatic pancreatic cancer and bacteremia. Patient seen and examined , family at bedside and updated, Dr. Cho at bedside as well today spoke to the patient and called the family and farm eating regarding poor prognosis of pancreatic cancer. Patient is still adamant regarding the possibility of receiving liver biopsy and following with oncologist in [place]. Hospice has been consulted and patient agreeable to speak with them but still desiring full treatment at this time. Patient is feeling much better today, labs are improved. Afebrile overnight. Participating with PT off supplemental O2. Objective Vitals Vital Signs Date Time Temp Pulse Resp B/P (MAP) Pulse Ox O2 Delivery O2 Flow Rate FiO2 11/10/17 08:00 96.0 99 16 136/66 (89) 95 11/10/17 04:00 97.9 97 18 118/75 (89) 98 11/10/17 00:00 97.9 97 18 121/71 (88) 99 11/09/17 20:00 97 11/09/17 20:00 97 Nasal Cannula 2.00 28 11/09/17 20:00 98.3 101 18 128/63 (84) 96 I/O 11/09/17 11/09/17 11/09/17 11/10/17 11/10/17 11/10/17 07:00 15:00 23:00 07:00 15:00 23:00 Intake Total 675 ml 570 ml 500 ml Balance 675 ml 570 ml 500 ml Intake Oral 120 ml 570 ml IV Total 555 ml 500 ml # Voids 2 3 3 # Bowel Movements 1 Result Diagram: 11/09/17 1518 11/10/17 0505 Imaging Last Impressions Abdomen/Pelvis CT 11/02/170 Signed Impressions: Service Date/Time: Thursday, November 02, 2017 21:55 - CONCLUSION: 1. Worsening metastatic disease to liver. 2. Metastatic adenopathy in the upper abdomen not present on the prior examination. Macros Aquino MD Chest X-Ray 11/02/172014 Signed Impressions: Service Date/Time: Thursday, November 02, 2017 20:35 - CONCLUSION: No acute cardiopulmonary disease. Marcos Aquino MD Objective Remarks GENERAL: Well-developed, thin appearing female patient in [facility]. SKIN: Warm and dry. No rash. Jaundice. HEENT: Normocephalic. Atraumatic. Pupils equal and round. No scleral icterus. No injection or drainage. No nasal bleeding or discharge. Mucous membranes pink and moist. NECK: Supple. Trachea midline. CARDIOVASCULAR: Regular rate and rhythm. S1, S2 noted. No murmur appreciated. RESPIRATORY: No accessory muscle use. Clear to auscultation. Breath sounds equal bilaterally. GASTROINTESTINAL: Abdomen soft, non-tender, nondistended. Normoactive bowel sounds x4. MUSCULOSKELETAL: No obvious deformities. Extremities without clubbing, cyanosis , or edema. NEUROLOGICAL: Awake and alert. No obvious cranial nerve deficits. Motor grossly within normal limits. 5/5 muscle strength in bilateral upper and lower extremities. Normal speech. PSYCHIATRIC: Appropriate mood and affect; insight and judgment normal. A/P Problem List: (1) Nausea & vomiting ICD Code: R11.2 - Nausea with vomiting, unspecified (2) Dehydration ICD Code: E86.0 - Dehydration (3) Hyponatremia ICD Code: E87.1 - Hypo-osmolality and hyponatremia (4) Leukocytosis ICD Code: D72.829 - Elevated white blood cell count, unspecified (5) Pancreatic cancer ICD Code: C25.9 - Malignant neoplasm of pancreas, unspecified Status: Chronic (6) Liver metastases ICD Code: C78.7 - Secondary malignant neoplasm of liver and intrahepatic bile duct Status: Chronic (7) Sepsis ICD Code: A41.9 - Sepsis, unspecified organism Status: Resolved Assessment and Plan Sepsis with bacteremia suspect secondary to possible biliary stent and possible ascending cholangitis (presented with fever, leukocytosis, tachycardia, positive blood cultures 4 with Escherichia coli). Infectious disease following appreciate further input and recommendations. Blood cultures no growth to date. Per infectious disease will change IV antibiotics to PO. Continue IV fluids. Afebrile overnight Monitor for fevers. Supportive care. Patient dyspnea improved. Passed walk test. Lying comfortable on RA. Malnutrition, mild: Started on Megace. Encouraged PO intake. Continue to monitor. Improving somewhat. Nausea/vomiting: Improved. Continue Zofran as needed. Hypokalemia, suspect secondary to above: Status post replacement, improved. Metastatic pancreatic head adenocarcinoma: Appreciate oncology recommendations, Dr. Cho is following patient. Prognosis is poor. Continue pain control. Per oncology, patient is hospice appropriate. Palliative care has seen patient and following. At this time patient is refusing Hospice care and will continue full code status. Supportive care. Family is meeting with Dr. Cho today regarding patient's prognosis. Will develop plan of care. Normocytic, normochromic anemia: Hemoglobin is stable at 8.3. Hypertension: Continue verapamil. Monitor BP trends. DVT prophylaxis: SCDs, JAYNA hose, subcutaneous heparin. Discharge Planning Patient requesting to go home with [facility] and follow up with oncologist in [place] today. Problem Qualifiers (1) Sepsis: Qualified Codes: A41.51 - Sepsis due to Escherichia coli [e. coli] Pratibha Quinonez Nov 10, 2017 12:46
--- NOTE | 2017-11-10 13:11 | HHI.DS ---
Discharge Summary Admission Date Nov 02, 2017 at 23:08 Discharge Date: Nov 10, 2017 Admitting Diagnosis Intractable vomiting with dehydration, leukocytosis, transaminitis (1) Nausea & vomiting ICD Code: R11.2 - Nausea with vomiting, unspecified (2) Dehydration ICD Code: E86.0 - Dehydration (3) Hyponatremia ICD Code: E87.1 - Hypo-osmolality and hyponatremia (4) Leukocytosis ICD Code: D72.829 - Elevated white blood cell count, unspecified (5) Pancreatic cancer ICD Code: C25.9 - Malignant neoplasm of pancreas, unspecified Status: Chronic (6) Liver metastases ICD Code: C78.7 - Secondary malignant neoplasm of liver and intrahepatic bile duct Status: Chronic (7) Sepsis ICD Code: A41.9 - Sepsis, unspecified organism Status: Resolved Procedures . Brief History - From Admission The patient is a 77-year-old female with known history of metastatic pancreatic cancer. She presented to the emergency department with complaints of nausea and vomiting that started Friday. She has not been able to keep any food or drink down since then. Nausea and vomiting are somewhat better today. Denied chest pain or dyspnea. She has had intermittent fever. She is scheduled for liver biopsy at [facility] in [place] today. CBC/BMP: 11/09/17 1518 11/10/17 0505 Significant Findings Laboratory Tests Test 11/08/17 06:40 11/09/17 07:15 11/09/17 15:18 11/10/17 05:05 White Blood Count 12.1 TH/MM3 (4.0-11.0) 12.8 TH/MM3 (4.0-11.0) Red Blood Count 2.83 MIL/MM3 (4.00-5.30) 2.63 MIL/MM3 (4.00-5.30) Hemoglobin 8.1 GM/DL (11.6-15.3) 7.4 GM/DL (11.6-15.3) 8.3 GM/DL (11.6-15.3) Hematocrit 24.1 % (35.0-46.0) 22.2 % (35.0-46.0) 24.7 % (35.0-46.0) Red Cell Distribution Width 18.2 % (11.6-17.2) 18.0 % (11.6-17.2) Neutrophils % (Manual) 80 % (16-70) 83 % (16-70) Neutrophils # (Manual) 10.0 TH/MM3 (1.8-7.7) 11.5 TH/MM3 (1.8-7.7) Creatinine 0.39 MG/DL (0.50-1.00) 0.33 MG/DL (0.50-1.00) 0.33 MG/DL (0.50-1.00) Random Glucose 118 MG/DL (74-106) Total Protein 5.1 GM/DL (6.4-8.2) 4.9 GM/DL (6.4-8.2) 4.9 GM/DL (6.4-8.2) Albumin 1.5 GM/DL (3.4-5.0) Calcium Level 7.4 MG/DL (8.5-10.1) 7.1 MG/DL (8.5-10.1) 6.9 MG/DL (8.5-10.1) Alkaline Phosphatase 546 U/L (45-117) Aspartate Amino Transf (AST/SGOT) 88 U/L (15-37) Total Bilirubin 10.9 MG/DL (0.2-1.0) Band Neutrophils % 7 % (0-6) Lymphocytes % 5 % (9-44) Protein Corrected Calcium 8.3 MG/DL (8.5-10.1) 8.1 MG/DL (8.5-10.1) Imaging Last Impressions Abdomen/Pelvis CT 11/02/172129 Signed Impressions: Service Date/Time: Thursday, November 02, 2017 21:55 - CONCLUSION: 1. Worsening metastatic disease to liver. 2. Metastatic adenopathy in the upper abdomen not present on the prior examination. Marcos Aquino MD Chest X-Ray 11/02/172014 Signed Impressions: Service Date/Time: Thursday, November 02, 2017 20:35 - CONCLUSION: No acute cardiopulmonary disease. Marcos Aquino MD PE at Discharge GENERAL: Well-developed, thin appearing female patient in [place]. SKIN: Warm and dry. No rash. Jaundice. HEENT: Normocephalic. Atraumatic. Pupils equal and round. No scleral icterus. No injection or drainage. No nasal bleeding or discharge. Mucous membranes pink and moist. NECK: Supple. Trachea midline. CARDIOVASCULAR: Regular rate and rhythm. S1, S2 noted. No murmur appreciated. RESPIRATORY: No accessory muscle use. Clear to auscultation. Breath sounds equal bilaterally. GASTROINTESTINAL: Abdomen soft, non-tender, nondistended. Normoactive bowel sounds x4. MUSCULOSKELETAL: No obvious deformities. Extremities without clubbing, cyanosis , or edema. NEUROLOGICAL: Awake and alert. No obvious cranial nerve deficits. Motor grossly within normal limits. 5/5 muscle strength in bilateral upper and lower extremities. Normal speech. PSYCHIATRIC: Appropriate mood and affect; insight and judgment normal. Hospital Course Sepsis with bacteremia suspect secondary to possible biliary stent and possible ascending cholangitis (presented with fever, leukocytosis, tachycardia, positive blood cultures 4 with Escherichia coli). Infectious disease followed patient during hospitalization. Was placed on IV antibiotics and switched to PO. Blood cultures no growth to date. Patient developed mild malnutrition while hospitalizaed, started on Megace which appeared to be helping patient, PO intake improved. Patient had nausea and vomiting which led to hypokalemia requiring IV supplementation. Improved on DC. Metastatic pancreatic head adenocarcinoma was managed by Dr. Cho. Prognosis is poor. Dr. Cho spoke at length to patient and family regarding poor prognosis. Patient upon dc still wanting full treatment and to be discharged home with [facility] to follow up with oncologist in [facility]. Refusing Hospice at this time. Patient also had some anemia during hospitalization, stool Hemoccult was drawn and negative, likely secondary to dilational reasons and frequent blood draws. Patient was stabilized enough to go home with [facility]. PT saw patient during hospitalization. Walker ordered for home. Pt Condition on Discharge: Guarded Discharge Disposition: Disch w/ Home Health Serv Discharge Time: > 30 minutes Discharge Instructions DIET: Follow Instructions for: Heart Healthy Diet Speech Therapy-Diet Recommends: Regular Activities you can perform: Regular-No Restrictions Follow up Referrals: PCP Follow-up - 1 Week New Medications: Potassium Chloride ER (Potassium Chloride ER) 10 Meq Cap 10 MEQ PO DAILY for Electrolyte Replacement for 30 Days, #30 CAP 0 Refills Walker Rolling/GetGo (Walker Rolling/GetGo) 1 Mis Mis EA .XX DIRECTED, #1 Cefuroxime (Cefuroxime) 500 Mg Tab 500 MG PO Q12HR for antibiotics for 11 Days, #22 TAB Lactobacillus Acidophilus (Acidophilus/l-Sporogenes) 35 Million Cell-25 Million Cell Tab 1 TAB PO Q12HR for probiotic for 11 Days, #22 TAB [Megestrol Liq] () 400 MG/10 ML SUSP 400 MG PO DAILY for appetite for 30 Days, #1 BOTTLE Continued Medications: Alprazolam (Alprazolam) 0.25 Mg Tab 0.25 MG PO Q6H PRN for ANXIETY, TAB 0 Refills Cromolyn Opth Drops (Cromolyn Opth Drops) 4% Soln 1 DROP EACH EYE Q6H, #1 BOTTLE 0 Refills Verapamil SR (Verapamil SR) 240 Mg Tab 240 MG PO DAILY, #30 TAB 0 Refills Discontinued Medications: [trandolapril] () 1 TAB PO DAILY Pratibha Quinonez Nov 10, 2017 13:11
--- NOTE | 2017-11-10 13:11 | HHI.DCPOC ---
Discharge Care Plan Diagnosis: (1) Sepsis (2) Pancreatic cancer (3) Nausea & vomiting (4) Abdominal pain (5) Dehydration (6) Fever (7) Hyponatremia Goals to Promote Your Health * To prevent worsening of your condition and complications * To maintain your health at the optimal level Directions to Meet Your Goals Take your medications as prescribed Follow your dietary instruction Follow activity as directed Keep your appointments as scheduled Take your immunizations and boosters as scheduled If your symptoms worsen call your PCP, if no PCP go to Urgent Care Center or Emergency Room Smoking is Dangerous to Your Health. Avoid second hand smoke Call the 24-hour hour crisis hotline for domestic abuse at Pratibha Quinonez Nov 10, 2017 13:11
[2017-11-10] MEDS ORDERED: LACT PO (13:16)
[2017-11-10] MEDS ORDERED: POTA10CA PO (13:16)
[2017-11-10] MEDS ORDERED: Megestrol Liq PO (13:16)
[2017-11-10] MEDS ORDERED: CEFU1TAB20 PO (13:16)
[2017-11-10] MEDS: NS + KCL 20 MEQ INJ 1,000 ML IV SCH (13:49)
== END 2017-11-10 17:04 | disposition home health service (06) | DRG 919 ==
LOC: PHED 19:49 → PHEDA 23:08 → PH3B 11-03 00:24
PROVIDERS: ADMIT Hospitalist; ATTEND Hospitalist
DX: T85.79XA Infection and inflammatory reaction due to other internal prosthetic devices, implants and grafts, initial encounter (principal); A41.51 Sepsis due to Escherichia coli [E. coli]; K83.0 Cholangitis; C78.7 Secondary malignant neoplasm of liver and intrahepatic bile duct; C25.0 Malignant neoplasm of head of pancreas; E86.0 Dehydration; E87.1 Hypo-osmolality and hyponatremia; E44.1 Mild protein-calorie malnutrition; I10 Essential (primary) hypertension; R00.0 Tachycardia, unspecified; Z92.21 Personal history of antineoplastic chemotherapy; R11.2 Nausea with vomiting, unspecified; M19.90 Unspecified osteoarthritis, unspecified site; E87.6 Hypokalemia; D64.9 Anemia, unspecified; R74.8 Abnormal levels of other serum enzymes
CPT/HCPCS: 71045; 74177; 80048; 80053; 80202; 81001; 82272; 82550; 82565; 83605; 83690; 83735; 84132; 84133; 84155; 84484; 85007; 85014; 85018; 85027; 85610; 85730; 87040; 87186; 87205; 87804; 93005; 96361; 96374; 96375; C9113; J0690; J0692; J0696; J1644; J1956; J2405; J3370; J3475; J3480; J7030; Q9967